=== PATIENT | female | born 1940 | race Caucasian/White ===

== ENCOUNTER 2018-05-26 21:57 | Observation (INO) | payer MEDICARE ==
[~2018-05-26] VITALS: Ht 154.9 cm; Wt 85.2 kg
[2018-05-26 22:22] LABS: BASOPHILS % (AUTO) 0.8 % (0.0-5.0); EOSINOPHILS % (AUTO) 2.1 % (0.0-8.0); HEMATOCRIT 39.6 % (36-48); LYMPHOCYTES % (AUTO) 16.5 % (21.0-51.0); MEAN CORPUSCULAR HEMOGLOBIN 27.6 pg (27.0-33.0); MEAN CORPUSCULAR HGB CONC 32.7 g/dL (32.0-36.0); MEAN CORPUSCULAR VOLUME 84.3 fL (79-99); MONOCYTES % (AUTO) 7.7 % (3.0-13.0); NEUTROPHILS % (AUTO) 72.9 % (40.0-77.0); NUCLEATED RED BLOOD CELLS 0.1 % (0.0-0.19); PLATELET COUNT (AUTO) 206 K/uL (130-400); RED CELL DISTRIBUTION WIDTH 14.1 % (11.0-15.5)
[2018-05-26 22:48] LABS: INR 0.89 (0.85-1.15); PARTIAL THROMBOPLASTIN TIME 29.1 SEC (26.3-35.5); PROTHROMBIN TIME 9.4 SEC (9.6-11.6)
[2018-05-26 22:54] LABS: B-TYPE NATRIURETIC PEPTIDE 24 pg/mL (0-100)
[2018-05-26 23:23] LABS: ALBUMIN 3.6 g/dL (3.5-5.0); BILIRUBIN,TOTAL 0.1 mg/dL (0.2-1.0); TOTAL PROTEIN, SERUM 7.7 g/dL (6.0-8.3)
[2018-05-27 01:16] LABS: APPEARANCE,URINE Clear (CLEAR); BILIRUBIN,URINE Negative (NEGATIVE); COLOR,URINE Yellow (YELLOW); GLUCOSE, URINE (UA) Negative (NEGATIVE); KETONES,URINE Negative (NEGATIVE); LEUKOCYTE ESTERASE ,URINE Trace (NEGATIVE); NITRATE,URINE Negative (NEGATIVE); OCCULT BLOOD,URINE Negative (NEGATIVE); PH,URINE 5.5 (5.0-8.0); PROTEIN,URINE Negative (NEGATIVE); UROBILINOGEN,URINE 0.2 mg/dL (0.2-1.0)
[2018-05-27 01:38] LABS: BACTERIA,URINE None Seen /HPF (None Seen); RBC,URINE None Seen /HPF (0-1); WBC,URINE None Seen /HPF (0-1)
[2018-05-27] MEDS ORDERED: LIDOCAINE HCL 2% VISCOUS 15 ML UDCUP ONE (01:44)
[2018-05-27] MEDS ORDERED: MAG HYDROX/AL HYDROX/SIMETH ES 30 ML SUSP UDCUP ONE (01:44)
[2018-05-27] MEDS ORDERED: NITROGLYCERIN 0.4 MG SL TAB SL PRN (02:30)
[2018-05-27] MEDS ORDERED: ACETAMINOPHEN 325 MG TAB PO PRN (02:30)
[2018-05-27] MEDS ORDERED: ONDANSETRON HCL 4 MG/2 ML VIAL IV PRN (02:30)
[2018-05-27] MEDS ORDERED: HYDRALAZINE HCL 20 MG/ML VIAL IM PRN (02:45)
[2018-05-27 02:55] LABS: AMPHET/METH SCREEN,URINE NEGATIVE (NEGATIVE); BARBITURATE SCREEN, URINE NEGATIVE (NEGATIVE); BENZODIAZEPINES SCREEN,URINE NEGATIVE (NEGATIVE); CANNABINOID SCREEN,URINE NEGATIVE (NEGATIVE); COCAINE SCREEN,URINE NEGATIVE (NEGATIVE); OPIATE SCREEN,URINE NEGATIVE (NEGATIVE); PHENCYCLIDINE SCREEN,URINE NEGATIVE (NEGATIVE)
[2018-05-27 04:36] LABS: EOSINOPHILS % (AUTO) 2.8 % (0.0-8.0); HEMATOCRIT 37.8 % (36-48); LYMPHOCYTES % (AUTO) 22.9 % (21.0-51.0); MEAN CORPUSCULAR HGB CONC 33.2 g/dL (32.0-36.0); MEAN CORPUSCULAR VOLUME 84.3 fL (79-99); MONOCYTES % (AUTO) 8.8 % (3.0-13.0); NEUTROPHILS % (AUTO) 64.5 % (40.0-77.0); PLATELET COUNT (AUTO) 227 K/uL (130-400); RED BLOOD CELL COUNT(AUTO) 4.48 MIL/uL (4.00-5.50); RED CELL DISTRIBUTION WIDTH 14.5 % (11.0-15.5); WHITE BLOOD COUNT (AUTO) 5.3 K/uL (4.8-10.8)
[2018-05-27 04:58] LABS: ALBUMIN 3.2 g/dL (3.5-5.0); BILIRUBIN,TOTAL 0.1 mg/dL (0.2-1.0); CREATININE 0.9 mg/dL (0.5-1.5); POTASSIUM 4.2 mmol/L (3.5-5.1); TOTAL PROTEIN, SERUM 6.4 g/dL (6.0-8.3)
[2018-05-27 05:06] LABS: CREATINE KINASE, TOTAL 152 U/L (21-232); MYOGLOBIN 63 ng/mL (10-92); TROPONIN I < 0.04 ng/mL (0.00-0.06)
[2018-05-27] MEDS ORDERED: IPRATROPIUM/ALBUTEROL SULFATE 3 ML SOLUTION IH SCH (06:00)
[2018-05-27] MEDS ORDERED: IPRATROPIUM/ALBUTEROL SULFATE 3 ML SOLUTION IH ONE (06:46)
--- NOTE | 2018-05-27 08:00 | NUR ---
feeling in neuro to feet Addendum: 05/27/18 at 1028 by FRED BAKER RN RN Amended: Links added.
--- NOTE | 2018-05-27 08:00 | NUR ---
heart burn Addendum: 05/27/18 at 1028 by FRED BAKER RN RN Amended: Links added.
[2018-05-27 08:34] VITALS: BP 134/77
[2018-05-27] MEDS ORDERED: PANTOPRAZOLE SODIUM 40 MG TABLET.DR PO SCH (09:00)
[2018-05-27] MEDS ORDERED: METOPROLOL TARTRATE 25 MG TAB PO SCH (09:00)
[2018-05-27] MEDS ORDERED: ENOXAPARIN SODIUM 30 MG/0.3 ML SQ SCH (09:00)
[2018-05-27] MEDS ORDERED: ASPIRIN 325 MG TABLET PO SCH (09:00)
[2018-05-27] MEDS ORDERED: FLUT1AER IH (10:56)
[2018-05-27] MEDS ORDERED: OXYB10TA PO (10:56)
[2018-05-27] MEDS ORDERED: ESOM40CA54 PO (10:56)
[2018-05-27] MEDS ORDERED: SIMV20TA6 PO (10:56)
[2018-05-27] MEDS ORDERED: PREG75 PO (10:56)
[2018-05-27] MEDS ORDERED: SULF1TAB41 PO (10:56)
[2018-05-27] MEDS ORDERED: METO-391 PO (10:56)
[2018-05-27] MEDS ORDERED: RANI-248 PO (10:56)
[2018-05-27] MEDS ORDERED: AMLO-127 PO (10:56)
[2018-05-27] MEDS ORDERED: ALBU90AE IH (10:56)
[2018-05-27] MEDS ORDERED: FLUT16H NASAL (10:56)
[2018-05-27] MEDS ORDERED: ASPI-1181 PO (10:56)
[2018-05-27] MEDS ORDERED: HYDR12.54 PO (11:24)
--- NOTE | 2018-05-27 12:40 | NUR ---
PATIENT GIVEN DISCHARGE INSTRUCTIONS AND VERBALIZED UNDERSTANDING, TELEMETRY AND UNIT NOTIFIED , IV D/C WITH CATHETER INTACT PRESSURE HELD ON SITE THE SITE DRESSED PATIENT .
--- NOTE | 2018-05-27 13:30 | NUR ---
PATIENT WALKED DOWN WITH DAUGHTER AND STAFF BY SIDE
== END 2018-05-27 13:29 | disposition home or self-care (01) ==
LOC: EDH 21:57 → EDHIP 05-27 02:29 → 4CH 05-27 08:14
PROVIDERS: ADMIT Hospitalist; ATTEND Hospitalist
DX: R07.89 Other chest pain (principal); I16.9 Hypertensive crisis, unspecified; J45.909 Unspecified asthma, uncomplicated; E66.9 Obesity, unspecified; E78.5 Hyperlipidemia, unspecified; I10 Essential (primary) hypertension; I25.10 Atherosclerotic heart disease of native coronary artery without angina pectoris; J98.11 Atelectasis; K21.9 Gastro-esophageal reflux disease without esophagitis; K44.9 Diaphragmatic hernia without obstruction or gangrene; Z68.35 Body mass index [BMI] 35.0-35.9, adult; Z96.651 Presence of right artificial knee joint; Z90.49 Acquired absence of other specified parts of digestive tract; Z90.710 Acquired absence of both cervix and uterus; Z82.61 Family history of arthritis; Z79.899 Other long term (current) drug therapy
CPT/HCPCS: 36415 ×2; 71045; 71275; 80053 ×2; 80061; 80305; 81001; 82550; 83874; 83880; 84484 ×3; 85025 ×2; 85378; 85610; 85730; 87040 ×2; 93005 ×2; 94640; 94664; 99284; G0378 ×11

== ENCOUNTER 2019-06-11 06:49 | Day surgery (SDC) | payer MEDICARE ==
[2019-06-09 10:21] VITALS: BP 101/66
[2019-06-11] VITALS (21 sets, daily range): BP systolic 52–142; BP diastolic 49–73
[~2019-06-11] VITALS: Ht 157.5 cm; Wt 76.7 kg
[~2019-06-11 06:49] MED LIST: ALBU90AE IH; AMLO-96 PO; ASPI-1181 PO; ESOM40CA54 PO; FLUT16H NASAL; FLUT1AER IH; HYDR12.54 PO; METO-391 PO; OXYB10TA30 PO; PREG75 PO; RANI-662 PO; SIMV-43 PO; SULF1TAB41 PO
[2019-06-11] MEDS ORDERED: LACTATED RINGERS 1000ML 1,000 ML IV ONE (07:39)
--- NOTE | 2019-06-11 07:45 | NUR ---
POTENTIAL FOR INFECTION: NO SHAVING NEEDED TO LEFT KNEE ASSESSED PER TUAN ROBB. WIPED LEFT KNEE / LEFT LEG WITH WILL: 2% CHLORHEXIDINE GLUCONATE CLOTH PATIENTS PRE-OP SKIN PREP PER TUAN ROBB.
[2019-06-11] MEDS ORDERED: CEFAZOLIN SODIUM 1 GM VIAL IVP ONE (08:00)
[2019-06-11] MEDS ORDERED: CA/D1TAB7 PO (08:50)
[2019-06-11] MEDS ORDERED: FERR-82 PO (08:50)
[2019-06-11] MEDS ORDERED: UBID100C10 PO (08:50)
[2019-06-11] MEDS ORDERED: MAGN400C PO (08:50)
[2019-06-11] MEDS ORDERED: MONT10TA26 PO (08:50)
[2019-06-11] MEDS ORDERED: CELE100 PO (08:50)
[2019-06-11] MEDS ORDERED: SULF1TAB89 PO (08:50)
[2019-06-11] MEDS ORDERED: GLUC-148 PO (08:50)
[2019-06-11] MEDS ORDERED: RALO60TA PO (08:50)
[2019-06-11] MEDS ORDERED: MULT-959 PO (08:50)
[2019-06-11] MEDS ORDERED: AMLO1CAP2 PO (08:50)
[2019-06-11] MEDS ORDERED: CETI10CA5 PO (08:52)
--- NOTE | 2019-06-11 08:52 | NUR ---
POTENTIAL FOR INFECTION: SHAVED LEFT LEG / LEFT KNEE PER TUAN ROBB, FOLLOWED BY WIPING WITH WILL: 2% CHLORHEXIDINE GLUCONATE CLOTH PATIENTS PRE-OP SKIN PREP.
[2019-06-11] MEDS ORDERED: SCOPOLAMINE HYDROBROMIDE 1 EACH ADH..PATCH TD ONE (08:55)
[2019-06-11] MEDS ORDERED: SUCCINYLCHOLINE 200MG/10ML SYR ONE (09:03)
[2019-06-11] MEDS ORDERED: GLYCOPYRROLATE 1 MG/5 ML SYRINGE ONE (09:03)
[2019-06-11] MEDS ORDERED: LIDOCAINE PF 2% 5ML ABBOJECT ONE (09:03)
[2019-06-11] MEDS ORDERED: PROPOFOL 10 MG/ML 20ML VIAL IV ONE (09:03)
[2019-06-11] MEDS ORDERED: ONDANSETRON HCL 4 MG/2 ML VIAL ONE (09:03)
[2019-06-11] MEDS ORDERED: NEOSTIGMINE 5MG/5ML SYR IV ONE (09:03)
[2019-06-11] MEDS ORDERED: DEXAMETHASONE SOD PHOSPHATE 10MG/ML 1ML VIAL ONE (09:03)
[2019-06-11] MEDS ORDERED: ROCURONIUM 10MG/1ML SYR 10 MG/ML ML ONE (09:04)
[2019-06-11] MEDS ORDERED: FENTANYL CITRATE PF 50 MCG/1 ML 2ML VIAL ONE (09:04)
[2019-06-11] MEDS ORDERED: MIDAZOLAM HCL 1 MG/ML 2ML VIAL ONE ×2 (09:04→11:28)
[2019-06-11] MEDS ORDERED: SUB TO ALBUTEROL 2.5MG/3ML NEBULES PER P&T IH ONE (09:04)
[2019-06-11] MEDS ORDERED: ACET1TAB12 PO (10:25)
[2019-06-11] MEDS ORDERED: MORPHINE SULFATE 4 MG/1ML SYG ONE ×2 (10:30→11:05)
--- NOTE | 2019-06-11 11:00 | NUR ---
PT COMING OF CHEST PRESSURE. DR. MONK TO SEE PT. ORDERS WERE GIVEN TO EKG, MORPHINE, BICITRA, AND PEPCID. ORDERS CARRIED OUT. Addendum: 06/11/19 at 1136 by WES MARCELO RN RN Amended: Links added.
[2019-06-11] MEDS ORDERED: FAMOTIDINE/PF 20 MG/2 ML VIAL IV ONE (11:05)
[2019-06-11] MEDS ORDERED: CITRIC ACID/SODIUM CITRATE 30 ML UDCUP ONE (11:06)
--- NOTE | 2019-06-11 11:13 | NUR ---
PEPCID 20MG IVP GIVEN.
--- NOTE | 2019-06-11 11:30 | NUR ---
DR. MONK TO SEE PT. AND READ EKG. PT STATES PAIN HAS LESSENED, BUT STILL THERE. PT APPEARED ANXIOUS. DR. MONK ORDERED VERSED 1MG, IVP. ORDERS CARRIED OUT. Addendum: 06/11/19 at 1138 by WES MARCELO RN RN Amended: Links added.
--- NOTE | 2019-06-11 12:00 | NUR ---
DR. MONK NOTIFIED PT IS FEELING COMFORTABLE, DENIES CHEST PAIN. DR. MONK PROVIDED ORDERS TO TRANSFER PT TO DAY PT. PT WAS TOLD TO REPORT TO EMERGENCY RM IF SHE GETS CHEST PRESSURE/DISCOMFORT AT HOME. Addendum: 06/11/19 at 1209 by WES MARCELO RN RN Amended: Links added.
--- NOTE | 2019-06-11 13:07 | NUR ---
PT LEFT VIA WHEELCHAIR IN PVT CAR WITH D/C INSTRUCTIONS GIVEN TO FAMILY. V/S STABLE NO COMPLICATIONS UPON D/C DRESSING DRY AND INTACT
== END 2019-06-11 13:07 | disposition home or self-care (01) ==
LOC: DAH 06:49
PROVIDERS: ATTEND Orthopaedic Surgery
DX: M23.222 Derangement of posterior horn of medial meniscus due to old tear or injury, left knee (principal); M17.12 Unilateral primary osteoarthritis, left knee; M25.562 Pain in left knee; G89.29 Other chronic pain; M67.52 Plica syndrome, left knee; M94.262 Chondromalacia, left knee; I25.10 Atherosclerotic heart disease of native coronary artery without angina pectoris; J44.9 Chronic obstructive pulmonary disease, unspecified; I10 Essential (primary) hypertension; Z96.651 Presence of right artificial knee joint; Z90.49 Acquired absence of other specified parts of digestive tract; Z90.710 Acquired absence of both cervix and uterus; Z98.890 Other specified postprocedural states; Z79.899 Other long term (current) drug therapy; Z87.891 Personal history of nicotine dependence; Z88.8 Allergy status to other drugs, medicaments and biological substances; Z79.82 Long term (current) use of aspirin; Z82.49 Family history of ischemic heart disease and other diseases of the circulatory system; Z82.3 Family history of stroke
CPT/HCPCS: 29881; 93005; A4213; A4215; A4221; A4222; A4223; A4606; A4649 ×2; A4663; A4930; A5120; A6223; J0330; J0690; J1100; J2001; J2250 ×2; J2270 ×2; J2405; J2704; J2710; J3010; J3490 ×2; J7030; J7120

== ENCOUNTER 2020-08-11 17:12 | Emergency (ER) | payer MEDICARE ==
[~2020-08-11 17:12] MED LIST changes: +ACET1TAB12 PO; -ALBU90AE IH; -AMLO-96 PO; +AMLO1CAP2 PO; -ASPI-1181 PO; +ASPI-1443 PO; +CA/D1TAB7 PO; +CELE100 PO; +CETI10CA5 PO; +FERR-82 PO; +GLUC-148 PO; -HYDR12.54 PO; +MAGN400C PO; +MONT10TA32 PO; +MULT-959 PO; +RALO60TA PO; -RANI-662 PO; -SULF1TAB41 PO; +SULF1TAB89 PO; +UBID100C10 PO
[2020-08-11 17:41] LABS: CREATININE 1.1 mg/dL (0.5-1.5); POTASSIUM 4.6 mmol/L (3.5-5.1)
[2020-08-11 17:46] LABS: ALBUMIN 2.5 g/dL (3.5-5.0); BILIRUBIN,TOTAL 0.1 mg/dL (0.2-1.0); TOTAL PROTEIN, SERUM 6.2 g/dL (6.0-8.3)
[2020-08-11 17:56] LABS: BASOPHILS % (AUTO) 0.6 % (0.0-5.0); EOSINOPHILS % (AUTO) 2.8 % (0.0-8.0); HEMATOCRIT 35.6 % (36-48); LYMPHOCYTES % (AUTO) 13.3 % (21.0-51.0); MEAN CORPUSCULAR HEMOGLOBIN 28.3 pg (27.0-33.0); MEAN CORPUSCULAR VOLUME 83.4 fL (79-99); MONOCYTES % (AUTO) 8.3 % (3.0-13.0); NEUTROPHILS % (AUTO) 74.6 % (40.0-77.0); PLATELET COUNT (AUTO) 55 K/uL (130-400); RED BLOOD CELL COUNT(AUTO) 4.27 MIL/uL (4.00-5.50); RED CELL DISTRIBUTION WIDTH 13.1 % (11.0-15.5); WHITE BLOOD COUNT (AUTO) 5.4 K/uL (4.8-10.8)
[2020-08-11 18:26] LABS: B-TYPE NATRIURETIC PEPTIDE 231 pg/mL (0-100)
[2020-08-11] MEDS ORDERED: FUROSEMIDE 10 MG/ML 2ML VIAL ONE (19:49)
[2020-08-11 20:43] LABS: BILIRUBIN,URINE Negative (NEGATIVE); COLOR,URINE Yellow (YELLOW); GLUCOSE, URINE (UA) Negative (NEGATIVE); KETONES,URINE Negative (NEGATIVE); LEUKOCYTE ESTERASE ,URINE Negative (NEGATIVE); NITRATE,URINE Negative (NEGATIVE); OCCULT BLOOD,URINE Small (NEGATIVE); PROTEIN,URINE >=1000 mg/dL (NEGATIVE); UROBILINOGEN,URINE 0.2 mg/dL (0.2-1.0)
[2020-08-11 20:44] LABS: APPEARANCE,URINE CLEAR (CLEAR)
[2020-08-11 21:32] LABS: BACTERIA,URINE Few /HPF (None Seen); RBC,URINE None Seen /HPF (0-1); SQUAMOUS EPITHELIAL CELL,UR 0-2 /HPF (0-2); WBC,URINE 0-1 /HPF (0-1)
== END 2020-08-11 22:14 | disposition home or self-care (01) ==
LOC: EDH 17:12
DX: E88.09 Other disorders of plasma-protein metabolism, not elsewhere classified (principal); R80.9 Proteinuria, unspecified; I10 Essential (primary) hypertension; J45.909 Unspecified asthma, uncomplicated; I25.10 Atherosclerotic heart disease of native coronary artery without angina pectoris; E78.5 Hyperlipidemia, unspecified; Z88.8 Allergy status to other drugs, medicaments and biological substances
CPT/HCPCS: 36415; 71045; 80053; 81001; 82550; 83880; 84443; 84484; 85025; 93005; 99285; J1940

== ENCOUNTER 2020-08-15 19:49 | Emergency (ER) | payer MEDICARE ==
[2020-08-15 20:44] LABS: BASOPHILS % (AUTO) 1.1 % (0.0-5.0); EOSINOPHILS % (AUTO) 5.8 % (0.0-8.0); HEMATOCRIT 37.1 % (36-48); LYMPHOCYTES % (AUTO) 12.9 % (21.0-51.0); MEAN CORPUSCULAR HEMOGLOBIN 28.4 pg (27.0-33.0); MEAN CORPUSCULAR HGB CONC 33.4 g/dL (32.0-36.0); MEAN CORPUSCULAR VOLUME 85.1 fL (79-99); MONOCYTES % (AUTO) 8.6 % (3.0-13.0); NEUTROPHILS % (AUTO) 71.2 % (40.0-77.0); PLATELET COUNT (AUTO) 16 K/uL (130-400); RED BLOOD CELL COUNT(AUTO) 4.36 MIL/uL (4.00-5.50); RED CELL DISTRIBUTION WIDTH 13.2 % (11.0-15.5); WHITE BLOOD COUNT (AUTO) 5.6 K/uL (4.8-10.8)
[2020-08-15 20:56] LABS: INR 0.95 (0.85-1.15); PARTIAL THROMBOPLASTIN TIME 24.7 SEC (26.3-35.5); PROTHROMBIN TIME 9.9 SEC (9.6-11.6)
[2020-08-15 21:01] LABS: CREATININE 1.4 mg/dL (0.5-1.5); POTASSIUM 4.7 mmol/L (3.5-5.1)
[2020-08-15 21:10] LABS: ALBUMIN 2.1 g/dL (3.5-5.0); BILIRUBIN,TOTAL 0.2 mg/dL (0.2-1.0); TOTAL PROTEIN, SERUM 6.4 g/dL (6.0-8.3)
[2020-08-15 22:11] LABS: PLATELET COUNT (AUTO) 138 K/uL (130-400)
[2020-08-15 22:16] LABS: PLATELET MORPHOLOGY PLT CLUMPS PRESENT
[2020-08-15 22:24] LABS: PLATELET MORPHOLOGY PLT CLUMPS PRESENT
[2020-08-15 22:29] LABS: APPEARANCE,URINE Clear (CLEAR); BILIRUBIN,URINE Negative (NEGATIVE); COLOR,URINE Yellow (YELLOW); GLUCOSE, URINE (UA) Negative (NEGATIVE); KETONES,URINE Negative (NEGATIVE); LEUKOCYTE ESTERASE ,URINE Negative (NEGATIVE); NITRATE,URINE Negative (NEGATIVE); OCCULT BLOOD,URINE Moderate (NEGATIVE); PH,URINE 5.5 (5.0-8.0); PROTEIN,URINE >=1000 mg/dL (NEGATIVE); UROBILINOGEN,URINE 0.2 mg/dL (0.2-1.0)
[2020-08-15 22:36] LABS: BACTERIA,URINE None Seen /HPF (None Seen); HYALINE CASTS, URINE 0-1 /LPF (0-1 /LPF); SQUAMOUS EPITHELIAL CELL,UR Rare /HPF (0-2); WBC,URINE 0-1 /HPF (0-1)
[2020-08-15] MEDS ORDERED: FUROSEMIDE 10 MG/ML 2ML VIAL ONE (22:40)
== END 2020-08-16 00:28 | disposition home or self-care (01) ==
LOC: EDH 19:49
DX: R80.9 Proteinuria, unspecified (principal); I10 Essential (primary) hypertension; R60.9 Edema, unspecified; Z20.822 Contact with and (suspected) exposure to COVID-19; J45.909 Unspecified asthma, uncomplicated; I25.10 Atherosclerotic heart disease of native coronary artery without angina pectoris; E78.5 Hyperlipidemia, unspecified; Z88.8 Allergy status to other drugs, medicaments and biological substances; Z88.5 Allergy status to narcotic agent; Z79.899 Other long term (current) drug therapy
CPT/HCPCS: 36415; 71045; 80053; 81001; 83605; 83880; 84484; 85025; 85610; 85730; 87040 ×2; 87426; 93005; 96374; 99285; J1940; U0003; 85049

== ENCOUNTER → 2020-08-25 | Outpatient (CLI) | payer MEDICARE ==
[~2020-08-25] MED LIST changes: +IOHEXOL-350 75 ML VIAL IV ONE
== END | disposition home or self-care (01) ==
LOC: RAH 07:30
PROVIDERS: ATTEND Nurse Practitioner Family
DX: R79.89 Other specified abnormal findings of blood chemistry (principal); J90 Pleural effusion, not elsewhere classified; K44.9 Diaphragmatic hernia without obstruction or gangrene; I51.7 Cardiomegaly; M25.40 Effusion, unspecified joint
CPT/HCPCS: 71275; Q9967

== ENCOUNTER → 2020-10-01 | Outpatient (CLI) | payer MEDICARE ==
[~2020-10-01] MED LIST changes: -IOHEXOL-350 75 ML VIAL IV ONE
== END | disposition home or self-care (01) ==
LOC: SHCH 15:18
PROVIDERS: ATTEND Internal Medicine Cardiovascular Disease
DX: I50.1 Left ventricular failure, unspecified (principal); R60.9 Edema, unspecified
CPT/HCPCS: 93306; 93356

== ENCOUNTER → 2021-02-21 | Outpatient (CLI) | payer MEDICARE ==
[~2021-02-21] VITALS: Ht 154.9 cm; Wt 76.7 kg
[~2021-02-21] MED LIST changes: +ACET-2027 PO; +AEC81 PO; +AMLO-142 PO; +AMLO-143 PO; +AMLO-513 PO; +CELEBREX PO; +FOLI1TAB85 PO; +FURO40TA5 PO; +HYDR-4060 PO; +LEVO25CA4 PO; +MONT-39 PO; -MONT10TA32 PO; +POTA10CA44 PO; +REGADENOSON 0.4 MG/5 ML PF SYG IVP SCH; +UBID200C18 PO; +VITAMIN B12 PO
== END | disposition home or self-care (01) ==
LOC: SHCH 09:14
PROVIDERS: ATTEND Internal Medicine Cardiovascular Disease
DX: Z01.810 Encounter for preprocedural cardiovascular examination (principal); G89.29 Other chronic pain; M25.561 Pain in right knee; R94.39 Abnormal result of other cardiovascular function study
CPT/HCPCS: 78452; 93017; 96374; A9500 ×2; J2785

== ENCOUNTER 2021-03-09 07:07 | Day surgery (SDC) | payer MEDICARE ==
[2021-03-07 15:44] LABS: BASOPHILS % (AUTO) 0.7 % (0.0-5.0); EOSINOPHILS % (AUTO) 2.4 % (0.0-8.0); HEMATOCRIT 40.7 % (36-48); LYMPHOCYTES % (AUTO) 12.6 % (21.0-51.0); MEAN CORPUSCULAR HEMOGLOBIN 27.6 pg (27.0-33.0); MEAN CORPUSCULAR HGB CONC 31.9 g/dL (32.0-36.0); MEAN CORPUSCULAR VOLUME 86.4 fL (79-99); MONOCYTES % (AUTO) 7.6 % (3.0-13.0); NEUTROPHILS % (AUTO) 76.4 % (40.0-77.0); PLATELET COUNT (AUTO) 41 K/uL (130-400); RED BLOOD CELL COUNT(AUTO) 4.71 MIL/uL (4.00-5.50); RED CELL DISTRIBUTION WIDTH 13.5 % (11.0-15.5); WHITE BLOOD COUNT (AUTO) 5.8 K/uL (4.8-10.8)
[2021-03-07 15:50] LABS: CREATININE 1.2 mg/dL (0.5-1.5); POTASSIUM 4.5 mmol/L (3.5-5.1)
[2021-03-07 15:53] LABS: INR 0.96 (0.85-1.15); PROTHROMBIN TIME 10.5 SEC (9.6-11.6)
[2021-03-07 15:54] LABS: PARTIAL THROMBOPLASTIN TIME 27.8 SEC (26.3-35.5)
[2021-03-07 16:00] LABS: APPEARANCE,URINE Clear (CLEAR); BILIRUBIN,URINE Negative (NEGATIVE); COLOR,URINE Dark Yellow (YELLOW); GLUCOSE, URINE (UA) Negative (NEGATIVE); KETONES,URINE Trace mg/dL (NEGATIVE); LEUKOCYTE ESTERASE ,URINE Negative (NEGATIVE); NITRATE,URINE Negative (NEGATIVE); OCCULT BLOOD,URINE Negative (NEGATIVE); PH,URINE 5.5 (5.0-8.0); PROTEIN,URINE Trace mg/dL (NEGATIVE); UROBILINOGEN,URINE 0.2 mg/dL (0.2-1.0)
[2021-03-07 16:18] LABS: BACTERIA,URINE Rare /HPF (None Seen); RBC,URINE 0-1 /HPF (0-1); SQUAMOUS EPITHELIAL CELL,UR Few /HPF (0-2); WBC,URINE 0-1 /HPF (0-1)
[2021-03-08 13:17] LABS: HEMATOCRIT 37.9 % (36-48); MEAN CORPUSCULAR HEMOGLOBIN 27.7 pg (27.0-33.0); MEAN CORPUSCULAR HGB CONC 32.7 g/dL (32.0-36.0); MEAN CORPUSCULAR VOLUME 84.6 fL (79-99); RED BLOOD CELL COUNT(AUTO) 4.48 MIL/uL (4.00-5.50); RED CELL DISTRIBUTION WIDTH 13.4 % (11.0-15.5); WHITE BLOOD COUNT (AUTO) 5.4 K/uL (4.8-10.8)
[2021-03-08 13:24] LABS: PLATELET COUNT (AUTO) 256 K/uL (130-400)
[2021-03-08 13:52] LABS: EOSINOPHILS % (MANUAL) 2 % (1-6); LYMPHOCYTES % (MANUAL) 13 % (22-44); MAN.DIFF COMMENT-IMPRESSION MANUAL DIFFERENTIAL; MONOCYTES % (MANUAL) 7 % (2-9); SEGMENTED NEUTROPHILS % 78 % (40-70)
[2021-03-08 13:53] LABS: PLATELET MORPHOLOGY COMMENT ADEQUATE
[2021-03-08 14:13] VITALS: BP 127/67
[2021-03-09] VITALS (11 sets, daily range): BP systolic 107–157; BP diastolic 48–97
[~2021-03-09] VITALS: Ht 157.5 cm; Wt 81.6 kg
[~2021-03-09 07:07] MED LIST changes: -ACET-2027 PO; -AEC81 PO; -AMLO-142 PO; -AMLO-143 PO; -AMLO-513 PO; -CELEBREX PO; -FOLI1TAB85 PO; -FURO40TA5 PO; -HYDR-4060 PO; -LEVO25CA4 PO; -POTA10CA44 PO; -REGADENOSON 0.4 MG/5 ML PF SYG IVP SCH; -UBID200C18 PO; -VITAMIN B12 PO
[2021-03-09] MEDS ORDERED: 0.9%NACL 1000ML 1,000 ML IV ONE (07:42)
[2021-03-09] MEDS ORDERED: FOLI1TAB85 PO (09:30)
[2021-03-09] MEDS ORDERED: POTA10CA44 PO (09:30)
[2021-03-09] MEDS ORDERED: ACET-2027 PO (09:30)
[2021-03-09] MEDS ORDERED: FURO40TA5 PO (09:30)
[2021-03-09] MEDS ORDERED: LEVO25CA4 PO (09:30)
[2021-03-09] MEDS ORDERED: UBID200C18 PO (09:31)
[2021-03-09] MEDS ORDERED: NITROGLYCERIN 50MG VIAL IV ONE (09:36)
[2021-03-09] MEDS ORDERED: IOHEXOL-350 50ML VIAL IV ONE (09:36)
[2021-03-09] MEDS ORDERED: IOHEXOL 350 MG/ML 100ML INFUS..BTL IV ONE ×2 (09:36→10:13)
[2021-03-09] MEDS ORDERED: LIDOCAINE HCL 400MG/20ML VIAL ONE (09:37)
[2021-03-09] MEDS ORDERED: AEC81 PO (10:07)
[2021-03-09] MEDS ORDERED: FENTANYL CITRATE PF 50 MCG/1 ML 2ML VIAL ONE (10:13)
[2021-03-09] MEDS ORDERED: MIDAZOLAM HCL 1 MG/ML 2ML VIAL ONE (10:13)
[2021-03-09] MEDS ORDERED: 0.9%NACL 1000ML 1,000 ML IV SCH (11:30)
[2021-04-28] MEDS ORDERED: AMLO-143 PO (11:57)
[2021-04-28] MEDS ORDERED: AMLO-142 PO (11:57)
[2021-04-28] MEDS ORDERED: VITAMIN B12 PO (11:58)
[2021-04-28] MEDS ORDERED: AMLO-513 PO (12:35)
[2021-05-05] MEDS ORDERED: HYDR-4060 PO (14:17)
== END 2021-03-09 17:00 | disposition home or self-care (01) ==
LOC: DAH 07:07
PROVIDERS: ATTEND Internal Medicine Cardiovascular Disease
DX: I25.10 Atherosclerotic heart disease of native coronary artery without angina pectoris (principal); J44.9 Chronic obstructive pulmonary disease, unspecified; I11.0 Hypertensive heart disease with heart failure; I50.32 Chronic diastolic (congestive) heart failure; J45.909 Unspecified asthma, uncomplicated; K21.9 Gastro-esophageal reflux disease without esophagitis; E78.5 Hyperlipidemia, unspecified; M19.90 Unspecified osteoarthritis, unspecified site; Z79.82 Long term (current) use of aspirin; Z79.899 Other long term (current) drug therapy; Z98.890 Other specified postprocedural states; Z95.5 Presence of coronary angioplasty implant and graft; Z90.49 Acquired absence of other specified parts of digestive tract; Z90.710 Acquired absence of both cervix and uterus; Z79.01 Long term (current) use of anticoagulants; Z82.49 Family history of ischemic heart disease and other diseases of the circulatory system
CPT/HCPCS: 36415 ×2; 71045; 80048; 81001; 85025 ×2; 85610; 85730; 93005; 93458; A4215; A4221; A4222; A4223 ×2; A4663; C1760; C1894 ×2; J1644; J2250; J3010; J3490 ×2; J7030; Q9965; Q9967 ×2; 99156; 99157

== ENCOUNTER 2021-05-02 07:49 | Inpatient (IN) | payer MEDICARE ==
[2021-04-28 10:02] LABS: BASOPHILS % (AUTO) 0.9 % (0.0-5.0); EOSINOPHILS % (AUTO) 3.6 % (0.0-8.0); HEMATOCRIT 37.7 % (36-48); LYMPHOCYTES % (AUTO) 13.7 % (21.0-51.0); MEAN CORPUSCULAR HGB CONC 32.6 g/dL (32.0-36.0); MEAN CORPUSCULAR VOLUME 85.9 fL (79-99); MONOCYTES % (AUTO) 10.7 % (3.0-13.0); NEUTROPHILS % (AUTO) 70.9 % (40.0-77.0); RED BLOOD CELL COUNT(AUTO) 4.39 MIL/uL (4.00-5.50); RED CELL DISTRIBUTION WIDTH 13.9 % (11.0-15.5); WHITE BLOOD COUNT (AUTO) 4.4 K/uL (4.8-10.8)
[2021-04-28 10:13] LABS: PLATELET COUNT (AUTO) 165 K/uL (130-400)
[2021-04-28 11:43] VITALS: BP 155/74
[2021-05-02] VITALS (27 sets, daily range): BP systolic 118–155; BP diastolic 54–97
[~2021-05-02] VITALS: Ht 157.5 cm; Wt 82.1 kg
[2021-05-02] MEDS: CEFAZOLIN SODIUM 2 GM VIAL IV SCH ×2 (05:00→11:12)
[~2021-05-02 07:49] MED LIST changes: +ACET-2027 PO; -ACET1TAB12 PO; +AEC81 PO; +AMLO-513 PO; -AMLO1CAP2 PO; -ASPI-1443 PO; -CELE100 PO; -CETI10CA5 PO; +FOLI1TAB85 PO; +FURO40TA5 PO; +LEVO25CA4 PO; +POTA10CA44 PO; -UBID100C10 PO; +UBID200C18 PO; +VITAMIN B12 PO
[2021-05-02] MEDS ORDERED: LACTATED RINGERS 1000ML 1,000 ML IV ONE (08:48)
[2021-05-02] MEDS ORDERED: CEFAZOLIN SODIUM 1 GM VIAL ONE ×2 (08:48→10:24)
[2021-05-02] MEDS ORDERED: CELEBREX PO (09:37)
[2021-05-02] MEDS ORDERED: LIDOCAINE PF 100MG/5ML (2%) SYRINGE 5ML ONE (09:42)
[2021-05-02] MEDS ORDERED: SUCCINYLCHOLINE CHLORIDE 20 MG/ML 10 ML VIAL ONE (09:42)
[2021-05-02] MEDS ORDERED: GLYCOPYRROLATE 1 MG/5 ML SYRINGE ONE (09:43)
[2021-05-02] MEDS ORDERED: NEOSTIGMINE 5MG/5ML SYR IV ONE (09:43)
[2021-05-02] MEDS ORDERED: PROPOFOL 10 MG/ML 20ML VIAL IV ONE (09:43)
[2021-05-02] MEDS ORDERED: MIDAZOLAM HCL 1 MG/ML 2ML VIAL ONE (09:43)
[2021-05-02] MEDS ORDERED: ROCURONIUM 10MG/1ML SYR 10 MG/ML ML ONE (09:44)
[2021-05-02] MEDS ORDERED: ROPIVACAINE 0.5% 5MG/ML 30ML IJ ONE ×2 (10:19→10:21)
[2021-05-02] MEDS ORDERED: TRANEXAMIC ACID 1000MG/10ML ONE ×2 (10:30→13:29)
[2021-05-02] MEDS ORDERED: FENTANYL CITRATE PF 50 MCG/1 ML 2ML VIAL ONE ×2 (11:15→13:14)
[2021-05-02] MEDS ORDERED: EPHEDRINE SULFATE 50 MG/ML AMPULE ONE (11:15)
[2021-05-02] MEDS ORDERED: POTASSIUM CHLORIDE 20MEQ/100ML 100 ML IV PRN (13:00)
[2021-05-02] MEDS ORDERED: TEMAZEPAM 15 MG CAPSULE PO PRN (13:00)
[2021-05-02] MEDS ORDERED: LIDOCAINE HCL-MPF 1% 2ML VIAL IV PRN (13:00)
[2021-05-02] MEDS ORDERED: 0.9%NACL 1000ML 1,000 ML IV SCH (13:00)
[2021-05-02] MEDS ORDERED: TRAMADOL HCL 50 MG TABLET PO PRN (13:00)
[2021-05-02] MEDS ORDERED: KCL 20 MEQ ERTAB PO PRN (13:00)
[2021-05-02] MEDS ORDERED: KETOROLAC 15MG/ML VIAL (15MG/ML) IV PRN (13:00)
[2021-05-02] MEDS ORDERED: FERROUS FUMARATE 324 MG TABLET PO PRN (13:00)
[2021-05-02] MEDS ORDERED: CALCIUM CARB 500MG PO PRN (13:00)
[2021-05-02] MEDS ORDERED: POTASSIUM CHLORIDE 10% ELIXIR 20 MEQ/15 ML UDCUP PO PRN (13:00)
[2021-05-02] MEDS ORDERED: OXYCODONE HCL 5 MG TAB PO PRN (13:00)
[2021-05-02] MEDS ORDERED: ONDANSETRON 4MG INJ IVP PRN (13:00)
[2021-05-02] MEDS: ACETAMINOPHEN 500 MG TABLET PO SCH ×2 (13:00→20:42)
[2021-05-02] MEDS ORDERED: IPRATROPIUM/ALBUTEROL SULFATE 3 ML SOLUTION IH ONE (13:31)
[2021-05-02] MEDS ORDERED: MORPHINE 2 MG SYG ONE ×2 (13:35→13:59)
[2021-05-02] MEDS: OXYCODONE HCL 5 MG TAB PO PRN ×2 (14:46→23:28)
[2021-05-02] MEDS ORDERED: FUROSEMIDE 40 MG TABLET PO SCH (16:00)
[2021-05-02] MEDS ORDERED: POTASSIUM CHLORIDE 10MEQ SR TAB PO SCH (16:00)
[2021-05-02] MEDS: CEFAZOLIN SODIUM 1 GM VIAL IVP SCH (17:54)
[2021-05-02] MEDS: ASPIRIN 81 MG EC TAB PO SCH (20:41)
[2021-05-02] MEDS: CELECOXIB 200 MG CAP PO SCH (20:41)
[2021-05-02] MEDS: SULFAMETHOX-TMP DS 800/160 TAB PO SCH (20:41)
[2021-05-02] MEDS: PREGABALIN 75 MG CAPSULE PO SCH (20:41)
[2021-05-02] MEDS: AMLODIPINE BES PO SCH (20:42)
[2021-05-02] MEDS: OLMESARTAN MED PO SCH (20:42)
[2021-05-03 00:32] VITALS: BP 139/74
[2021-05-03] MEDS: CEFAZOLIN SODIUM 1 GM VIAL IVP SCH (02:34)
[2021-05-03 04:15] VITALS: BP 142/78
[2021-05-03] MEDS: ACETAMINOPHEN 500 MG TABLET PO SCH ×3 (04:49→21:00)
[2021-05-03] MEDS: OXYCODONE HCL 5 MG TAB PO PRN ×2 (04:53→08:48)
[2021-05-03 05:02] LABS: HEMATOCRIT 37.5 % (36-48); MEAN CORPUSCULAR HEMOGLOBIN 27.4 pg (27.0-33.0); MEAN CORPUSCULAR HGB CONC 31.5 g/dL (32.0-36.0); RED BLOOD CELL COUNT(AUTO) 4.31 MIL/uL (4.00-5.50); RED CELL DISTRIBUTION WIDTH 13.5 % (11.0-15.5); WHITE BLOOD COUNT (AUTO) 7.1 K/uL (4.8-10.8)
[2021-05-03] MEDS ORDERED: LEVOTHYROXINE 25 MCG TABLET ONE (05:23)
[2021-05-03 05:28] LABS: CREATININE 0.8 mg/dL (0.5-1.5); POTASSIUM 4.3 mmol/L (3.5-5.1)
[2021-05-03] MEDS: LEVOTHYROXINE 25 MCG TABLET PO SCH (05:51)
[2021-05-03 07:30] VITALS: BP 146/70
[2021-05-03] MEDS: SIMVASTATIN 20 MG TABLET PO SCH (08:48)
[2021-05-03] MEDS: CYANOCOBALAMIN (VITAMIN B-12) 1,000 MCG TABLET PO SCH (08:48)
[2021-05-03] MEDS: METOPROLOL SUCCINATE 50 MG TAB.SR.24H PO SCH (08:48)
[2021-05-03] MEDS: CA 600MG+VIT D 400 UNIT TAB 1 TAB TABLET PO SCH (08:48)
[2021-05-03] MEDS: MONTELUKAST SODIUM 10 MG TAB PO SCH (08:49)
[2021-05-03] MEDS: ASPIRIN 81 MG EC TAB PO SCH ×2 (08:49→21:00)
[2021-05-03] MEDS: Vitamin B Complex/Vit C/Folic Acid PO SCH (08:50)
[2021-05-03] MEDS: POLYETHYLENE GLYCOL 3350 17 GM POWD.PACK PO SCH (08:50)
[2021-05-03] MEDS: MAGNESIUM OXIDE 400 MG TABLET PO SCH (08:50)
[2021-05-03] MEDS: CELECOXIB 200 MG CAP PO SCH ×2 (08:50→20:59)
[2021-05-03] MEDS: FLUTICASONE PROPIONATE 50MCG/SPRAY 16 GM BOTTLE NS SCH (08:50)
[2021-05-03] MEDS: PANTOPRAZOLE 40 MG TAB DR PO SCH (08:50)
[2021-05-03] MEDS: OXYBUTYNIN 5 MG TAB.SR.24H PO SCH (08:50)
[2021-05-03] MEDS: FLUTICASONE/VILANTEROL 1 EACH AER.POW.BA IH SCH ×2 (08:51→18:04)
[2021-05-03] MEDS ORDERED: FERROUS SULFATE 325 MG TABLET.DR PO SCH (09:00)
[2021-05-03 11:00] VITALS: BP 133/66
[2021-05-03] MEDS ORDERED: HYDROMORPHONE PCA 10 MG/50 ML 50 ML IV PRN (13:30)
[2021-05-03] MEDS: HYDROMORPHONE 1 MG INJ IVP SCH (13:36)
[2021-05-03 16:00] VITALS: BP 142/58
[2021-05-03] MEDS: RALOXIFENE HCL 60 MG TABLET PO SCH (17:23)
[2021-05-03 20:31] VITALS: BP 140/59
[2021-05-03] MEDS: SULFAMETHOX-TMP DS 800/160 TAB PO SCH (20:59)
[2021-05-03] MEDS: PREGABALIN 75 MG CAPSULE PO SCH (21:03)
[2021-05-03] MEDS: OLMESARTAN MED PO SCH (21:17)
[2021-05-03] MEDS: AMLODIPINE BES PO SCH (21:17)
[2021-05-04] VITALS: BP 144/57
[2021-05-04 05:07] VITALS: BP 129/52
[2021-05-04] MEDS: LEVOTHYROXINE 25 MCG TABLET PO SCH (06:12)
[2021-05-04] MEDS: ACETAMINOPHEN 500 MG TABLET PO SCH ×2 (06:13→13:43)
[2021-05-04] MEDS ORDERED: FUROSEMIDE 40 MG TABLET PO SCH (07:00)
[2021-05-04] MEDS ORDERED: POTASSIUM CHLORIDE 10MEQ SR TAB PO SCH (07:00)
[2021-05-04 07:50] VITALS: BP 160/52
[2021-05-04] MEDS: MAGNESIUM OXIDE 400 MG TABLET PO SCH (08:08)
[2021-05-04] MEDS: SIMVASTATIN 20 MG TABLET PO SCH (08:08)
[2021-05-04] MEDS: PANTOPRAZOLE 40 MG TAB DR PO SCH (08:09)
[2021-05-04] MEDS: Vitamin B Complex/Vit C/Folic Acid PO SCH (08:09)
[2021-05-04] MEDS: OXYBUTYNIN 5 MG TAB.SR.24H PO SCH (08:09)
[2021-05-04] MEDS: ASPIRIN 81 MG EC TAB PO SCH (08:09)
[2021-05-04] MEDS: CA 600MG+VIT D 400 UNIT TAB 1 TAB TABLET PO SCH (08:09)
[2021-05-04] MEDS: METOPROLOL SUCCINATE 50 MG TAB.SR.24H PO SCH (08:09)
[2021-05-04] MEDS: CELECOXIB 200 MG CAP PO SCH (08:09)
[2021-05-04] MEDS: POLYETHYLENE GLYCOL 3350 17 GM POWD.PACK PO SCH (08:10)
[2021-05-04] MEDS: MONTELUKAST SODIUM 10 MG TAB PO SCH (08:10)
[2021-05-04] MEDS: CYANOCOBALAMIN (VITAMIN B-12) 1,000 MCG TABLET PO SCH (08:10)
[2021-05-04] MEDS: OXYCODONE HCL 5 MG TAB PO PRN ×2 (08:11→13:43)
[2021-05-04] MEDS: FLUTICASONE/VILANTEROL 1 EACH AER.POW.BA IH SCH (08:20)
[2021-05-04] MEDS: FLUTICASONE PROPIONATE 50MCG/SPRAY 16 GM BOTTLE NS SCH (08:20)
[2021-05-04 11:14] VITALS: BP 125/59
[2021-05-04] MEDS ORDERED: PHARMACY COMMUNICATION MISC SCH (13:00)
[2021-05-04] MEDS: HYDROMORPHONE 1 MG INJ IVP SCH (13:30)
[2021-05-04] MEDS: RALOXIFENE HCL 60 MG TABLET PO SCH (13:43)
[2021-05-04] MEDS ORDERED: AEC81 PO (13:59)
[2021-05-04] MEDS ORDERED: HYDR-4060 PO (13:59)
[2021-05-04 15:52] VITALS: BP 131/39
[2021-05-04] MEDS ORDERED: ALBUTEROL 0.042% 1.25MG/3ML IH ONE (17:00)
[2021-05-05] MEDS ORDERED: BISACODYL 10 MG SUPP.RECT RC PRN (13:00)
[2021-05-05] MEDS ORDERED: HYDR-4060 PO (14:17)
== END 2021-05-04 18:03 | disposition home health service (06) | DRG 470 ==
LOC: DAHIP 07:49 → EDSTATUS 08:00 → 4AH 14:17
PROVIDERS: ADMIT Orthopaedic Surgery; ATTEND Orthopaedic Surgery
PROC: 0SRD0J9 Replacement of Left Knee Joint with Synthetic Substitute, Cemented, Open Approach (ICD-10-PCS; principal; 2021-05-02 11:45)
DX: M17.12 Unilateral primary osteoarthritis, left knee (principal); I11.0 Hypertensive heart disease with heart failure; I25.10 Atherosclerotic heart disease of native coronary artery without angina pectoris; E78.5 Hyperlipidemia, unspecified; Z20.822 Contact with and (suspected) exposure to COVID-19; I50.9 Heart failure, unspecified; G89.29 Other chronic pain; Z96.651 Presence of right artificial knee joint; Z90.49 Acquired absence of other specified parts of digestive tract; Z90.710 Acquired absence of both cervix and uterus; Z88.8 Allergy status to other drugs, medicaments and biological substances; Z87.891 Personal history of nicotine dependence; Z95.5 Presence of coronary angioplasty implant and graft; Z82.49 Family history of ischemic heart disease and other diseases of the circulatory system
CPT/HCPCS: 36415; 80048; 85025; 85027; 87635; 87641; 94640; 97039; G0378; J0330; J0690; J1170; J1885; J2001; J2250; J2704; J2710; J2795; J3010; J3490; J7120

== ENCOUNTER 2023-09-19 18:23 | Emergency (ER) | payer MEDICARE ==
[~2023-09-19] VITALS: Ht 154.9 cm; Wt 74.8 kg
[~2023-09-19 18:23] MED LIST changes: +CELEBREX PO; +HYDR-4060 PO; -POTA10CA44 PO; +POTA10CA95 PO; +RALO60 PO; -RALO60TA PO
[2023-09-19 19:21] LABS: APPEARANCE,URINE CLEAR (CLEAR); BILIRUBIN,URINE NEGATIVE (NEGATIVE); COLOR,URINE LIGHT-YELLOW (YELLOW); GLUCOSE, URINE (UA) NEGATIVE (NEGATIVE); KETONES,URINE NEGATIVE (NEGATIVE); LEUKOCYTE ESTERASE ,URINE NEGATIVE Leu/uL (NEGATIVE); NITRATE,URINE NEGATIVE (NEGATIVE); PROTEIN,URINE NEGATIVE (NEGATIVE); UROBILINOGEN,URINE 0.2 mg/dL (0.2-1.0)
[2023-09-19 19:23] LABS: ADD UA MICROSCOPIC YES
[2023-09-19 19:30] LABS: BASOPHILS # (AUTO) 0.03 K/uL (0.00-0.20); BASOPHILS % (AUTO) 0.3 % (0.0-5.0); EOSINOPHILS # (AUTO) 0.14 K/uL (0.00-0.70); EOSINOPHILS % (AUTO) 1.4 % (0.0-8.0); HEMATOCRIT 31.5 % (36-48); IMMATURE GRANULOCYTE ABSOLUTE 0.04 K/uL (0-1); LYMPHOCYTES # (AUTO) 0.6 K/uL (1.0-4.8); MEAN CORPUSCULAR HEMOGLOBIN 28.5 pg (27.0-33.0); MEAN CORPUSCULAR HGB CONC 35.9 g/dL (32.0-36.0); MEAN CORPUSCULAR VOLUME 79.3 fL (79-99); MONOCYTES # (AUTO) 0.8 K/uL (0.1-1.0); MONOCYTES % (AUTO) 8.1 % (3.0-13.0); NEUTROPHILS # (AUTO) 8.4 K/uL (1.8-7.7); NEUTROPHILS % (AUTO) 83.8 % (40.0-77.0); PLATELET COUNT (AUTO) 69 K/uL (130-400); RED BLOOD CELL COUNT(AUTO) 3.97 MIL/uL (4.00-5.50); RED CELL DISTRIBUTION WIDTH 13.4 % (11.0-15.5)
[2023-09-19 19:37] LABS: BACTERIA,URINE RARE /HPF (None Seen); WBC,URINE 0-1 /HPF (0-1)
[2023-09-19 19:42] LABS: INR 1.06 (0.85-1.15); PARTIAL THROMBOPLASTIN TIME 27.1 SEC (26.3-35.5); PROTHROMBIN TIME 11.2 SEC (9.6-11.6)
[2023-09-19 19:43] LABS: ALANINE AMINOTRANSFERASE 19 U/L (12-78); ALBUMIN 2.7 g/dL (3.5-5.0); ASPARTATE AMINOTRANSFERASE 17 U/L (10-37); BILIRUBIN,TOTAL 0.4 mg/dL (0.2-1.0); CARBON DIOXIDE 23 mmol/L (21-32); GLOMERULAR FILTR. RATE CALC 56 mL/min (>90); GLUCOSE,RANDOM 99 mg/dL (70-105); POTASSIUM 4.2 mmol/L (3.5-5.1); SODIUM SERUM 119 mmol/L (136-145); TOTAL PROTEIN, SERUM 7.4 g/dL (6.0-8.3); UREA NITROGEN, BLOOD 21 mg/dL (7-18)
[2023-09-19 19:54] LABS: CHLORIDE 89 mmol/L (101-111)
[2023-09-19 19:57] LABS: AMMONIA < 10 umol/L (11-32)
[2023-09-19] MEDS: 0.9%NACL 1000ML 1,000 ML IV ONE (20:03)
[2023-09-19] MEDS ORDERED: RALO60 PO (22:25)
[2023-09-19] MEDS ORDERED: CELE100C PO (22:25)
[2023-09-19] MEDS ORDERED: LEVO25TA54 PO (22:25)
[2023-09-19] MEDS ORDERED: METO-409 PO (22:25)
[2023-09-19] MEDS ORDERED: FAMO20TA8 PO (22:25)
[2023-09-19] MEDS ORDERED: METO-391 PO (22:25)
[2023-09-19] MEDS ORDERED: PREG150C PO (22:25)
[2023-09-19] MEDS ORDERED: DOXA1TAB2 PO (22:25)
[2023-09-19] MEDS ORDERED: ESOM40CA PO (22:25)
[2023-09-19] MEDS ORDERED: MONT-47 PO (22:25)
[2023-09-19] MEDS ORDERED: SIMV-43 PO (22:25)
[2023-09-19] MEDS ORDERED: CETI-89 PO (22:25)
[2023-09-19] MEDS ORDERED: SPIR25TA6 PO (22:25)
[2023-09-19] MEDS ORDERED: SULF1TAB42 PO (22:25)
[2023-09-19] MEDS ORDERED: OXYB10TA30 PO (22:25)
[2023-09-19] MEDS ORDERED: TELM80TA10 PO (22:25)
[2023-09-20 00:38] VITALS: BP 116/61; PULSE 81; RESP 18; O2SAT 96
[2023-09-20 01:01] LABS: CREATININE 0.9 mg/dL (0.5-1.0); POTASSIUM 3.8 mmol/L (3.5-5.1)
== END 2023-09-20 01:50 | disposition short-term general hospital (02) ==
LOC: EDH 18:23
DX: G93.89 Other specified disorders of brain (principal); E87.1 Hypo-osmolality and hyponatremia; I10 Essential (primary) hypertension; M19.90 Unspecified osteoarthritis, unspecified site; D69.6 Thrombocytopenia, unspecified; Z79.82 Long term (current) use of aspirin; Z79.84 Long term (current) use of oral hypoglycemic drugs; Z79.899 Other long term (current) drug therapy; Z90.710 Acquired absence of both cervix and uterus; Z98.890 Other specified postprocedural states; Z88.8 Allergy status to other drugs, medicaments and biological substances
CPT/HCPCS: 99285; 96360; 70450; 80053; 82140; 85025; 85610; 85730; 82948; 81001; 36415 ×2; 80048; J7030

== ENCOUNTER → 2023-10-23 | Outpatient (CLI) | payer MEDICARE ==
[~2023-10-23] MED LIST changes: +CELE100C PO; +CETI-89 PO; +DOXA1TAB2 PO; +ESOM40CA PO; -ESOM40CA54 PO; +ESOM40CA66 PO; +FAMO20TA8 PO; +LEVO25TA54 PO; +METO-409 PO; +MONT-47 PO; +PREG150C PO; +SPIR25TA6 PO; +SULF1TAB42 PO; +TELM80TA10 PO
[2023-10-23 16:29] LABS: CREATININE 0.9 mg/dL (0.5-1.0); POTASSIUM 4.5 mmol/L (3.5-5.1)
== END | disposition home or self-care (01) ==
LOC: LAB 15:48
PROVIDERS: ATTEND Internal Medicine Cardiovascular Disease
DX: I50.32 Chronic diastolic (congestive) heart failure (principal)
CPT/HCPCS: 36415; 80048

== ENCOUNTER → 2023-11-20 | Outpatient (CLI) | payer MEDICARE ==
[2023-11-20 16:20] LABS: CREATININE 0.9 mg/dL (0.5-1.0); POTASSIUM 4.2 mmol/L (3.5-5.1)
== END | disposition home or self-care (01) ==
LOC: LAB 12:13
PROVIDERS: ATTEND Internal Medicine Cardiovascular Disease
DX: I50.32 Chronic diastolic (congestive) heart failure (principal)
CPT/HCPCS: 36415; 80048

== ENCOUNTER 2024-03-25 09:50 | Emergency (ER) | payer MEDICARE ==
[~2024-03-25] VITALS: Ht 154.9 cm; Wt 80.7 kg
[~2024-03-25 09:50] MED LIST changes: -ACET-2027 PO; -AEC81 PO; +ALBU2.5V2 IH; -AMLO-513 PO; +AMOX1TAB16 PO; +BENZ-226 PO; -CA/D1TAB7 PO; -CELE100C PO; -CELEBREX PO; -CETI-89 PO; +ESOM20CA51 PO; -ESOM40CA PO; -ESOM40CA66 PO; -FAMO20TA8 PO; -FERR-82 PO; -FLUT16H NASAL; -FLUT1AER IH; +FLUT1BLS15 IH; +FLUT30CR TP; -FOLI1TAB85 PO; -FURO40TA5 PO; -GLUC-148 PO; -HYDR-4060 PO; +LEVE250T2 PO; +LEVE500T98 PO; -LEVO25TA54 PO; -MAGN400C PO; -MONT-39 PO; -MONT-47 PO; -MULT-959 PO; -OXYB10TA30 PO; -POTA10CA95 PO; +PRED20TA3 PO; -PREG150C PO; -PREG75 PO; -RALO60 PO; -SIMV-43 PO; -SPIR25TA6 PO; -SULF1TAB42 PO; -SULF1TAB89 PO; -UBID200C18 PO; -VITAMIN B12 PO
--- NOTE | 2024-03-25 10:10 | ERN ---
ED Note History of Present Illness Stated Complaint: LOWER ABD PAIN, CONSTIPATION Chief Complaint: Abdominal Pain Time Seen by MD: 09:54 Dictation: Patient is a 84-year-old female with a past medical history of hypothyroidism, hypertension, hyperlipidemia, diverticulitis, arthritis, constipation, frequent UTIs came to the ED with a chief complaint of low back pain since 2 weeks. Patient has been to [facility] ED 2 weeks back for the low back pain , on CT imaging patient was diagnosed with diverticulitis and was prescribed antibiotics and discharged. Patient did not have any relief with abdominal and back pain. She also mentioned that she was diagnosed with ESBL and is having ID specialist appointment soon. Allergies: Coded Allergies: diphenhydramine (Unverified Allergy, Unknown, 06/09/19) meperidine (Unverified Allergy, Unknown, 06/09/19) Home Meds Active Scripts Methocarbamol (Robaxin) 750 Mg Tab, 500 MG PO BID for 5 Days, #10 TAB Prov:WILBERTO JUSTICE MD 03/25/24 Prednisone (Prednisone) 20 Mg Tablet, 1 TAB PO DAILY for 3 Days, #5 TAB 0 Refills Prov:DILIP OROPEZA MD 03/02/24 Benzonatate (Benzonatate) 100 Mg Capsule, 200 MG PO TID PRN for cough for 7 Days, #21 CAP 1 Refill Prov:DILIP OROPEZA MD 03/02/24 Albuterol Sulfate (Albuterol Sulfate) 2.5 Mg/3 Ml (0.083 %) Vial.neb, 2.5 MG IH K0HCCCI for 10 Days, #120 INH 2 Refills Prov:DILIP OROPEZA MD 03/02/24 Amoxicillin/Potassium Clav (Amox Tr-K Clv 875-125 mg Tab) 875 Mg-125 Mg Tablet, 1 TAB PO BID for 10 Days, #20 TAB 0 Refills Prov:DILIP OROPEZA MD 03/02/24 Reported Medications Fluticasone/Umeclidin/Vilanter (Trelegy Ellipta 200-62.5-25) 200-62.5 Blst.w.dev, 1 PUFF IH DAILY for 30 Days, #60 EACH 0 Refills 02/28/24 Fluticasone Propionate (Fluticasone Propionate) 0.05 % Cream..g., 1 APPL TP DAILY for 30 Days, #60 GM 0 Refills 02/28/24 Levothyroxine Sodium (Levothyroxine) 25 Mcg Capsule, 25 MCG PO ACBKFST, CAP 02/28/24 Esomeprazole Magnesium (Esomeprazole Magnesium) 20 Mg Capsule.dr, 1 CAP PO DAILY for acid reflux for 30 Days, #30 CAP 0 Refills 02/28/24 Doxazosin Mesylate (Doxazosin Mesylate) 1 Mg Tablet, 1 MG PO BID, TAB 02/28/24 Telmisartan (Telmisartan) 80 Mg Tablet, 80 MG PO PM, TAB 02/28/24 Levetiracetam (Levetiracetam) 250 Mg Tablet, 250 MG PO DAILY, TAB 02/27/24 Levetiracetam (Levetiracetam) 500 Mg Tab.er.24h, 500 MG PO HS, TAB 02/27/24 Metoprolol Succinate (Metoprolol Succinate) 50 Mg Tab.er.24h, 50 MG PO HS, TAB 02/27/24 Metoprolol Succinate (Metoprolol Succinate) 100 Mg Tab.er.24h, 100 MG PO AM, TAB 02/27/24 Past Medical History Past Medical History: Arthritis, Asthma, Diverticulitis, High Cholesterol, Heart Disease, Hypertension Additional Past Medical Hx: HX BRAIN BLEED Surgical History: Appendectomy, Hysterectomy History: Not Applicable Review of System Dictation Constitutional-no chills.Weight gain of 20 lb in 10 days Eyes-no injury, pain, redness and discharge ENT-no injury, pain, swelling Cardiovascular no chest pain, palpitations, edema Respiratory no shortness of breath, cough, wheezing Abdomen/GI-no abdominal pain, diarrhea, vomiting, nausea. Last bowel movement 1 week ago, no flatus Back no injury and pain Genitourinary no injury, bleeding and discharge . Informed low urine output Musculoskeletal/extremities no injury, deformity Skin no rash, discoloration Neuro-no headache, weakness, numbness, tingling, seizures, tremors Psych-no suicidal ideation, homicidal ideation, hallucinations, depression, anxiety, memory loss Initial Vital Sign VS Vital Signs Date Time Temp Pulse Resp B/P (MAP) Pulse Ox O2 Delivery O2 Flow Rate FiO2 03/25/24 09:52 97.9 76 16 149/62 96 Room Air 0 03/25/24 12:00 21 Physical Exam Dictation General-patient is awake alert and oriented Head/neck-normocephalic, atraumatic Eyes-PERRL, EOMI, vision at baseline Neck-trachea midline, supple, no nuchal rigidity Cardiovascular-RRR, normal S1/S2, no MRG is, no JVD Respiratory-no distress, wheezing, rales, rhonchi Abdomen-no tenderness, guarding, soft, and distended Skin warm, dry, normal turgor, no rash Musculoskeletal/extremities pulses equal, no cyanosis Neuro-COA X 4, GCS 15, strength 5/5, CN 2-12 intact Psych-normal behavior, mood and affect normal Results (Laboratory/Radiology) Laboratory/Radiology Laboratory Tests Test 03/25/24 10:22 03/25/24 12:20 White Blood Count 5.8 K/uL (4.8-10.8) Red Blood Count 3.87 MIL/uL (4.00-5.50) L Hemoglobin 10.6 g/dL (12.0-16.0) L Hematocrit 32.6 % (36-48) L Mean Corpuscular Volume 84.2 fL (79-99) Mean Corpuscular Hemoglobin 27.4 pg (27.0-33.0) Mean Corpuscular Hemoglobin Concent 32.5 g/dL (32.0-36.0) Red Cell Distribution Width 14.4 % (11.0-15.5) Platelet Count 147 K/uL (130-400) Mean Platelet Volume 12.7 fL (7.5-10.5) H Immature Granulocyte % (Auto) 0.3 % (0-1) Neutrophils (%) (Auto) 48.1 % (40.0-77.0) Lymphocytes (%) (Auto) 14.6 % (21.0-51.0) L Monocytes (%) (Auto) 12.0 % (3.0-13.0) Eosinophils (%) (Auto) 23.6 % (0.0-8.0) H Basophils (%) (Auto) 1.4 % (0.0-5.0) Neutrophils # (Auto) 2.8 K/uL (1.8-7.7) Lymphocytes # (Auto) 0.9 K/uL (1.0-4.8) L Monocytes # (Auto) 0.7 K/uL (0.1-1.0) Eosinophils # (Auto) 1.37 K/uL (0.00-0.70) H Basophils # (Auto) 0.08 K/uL (0.00-0.20) Absolute Immature Granulocyte (auto 0.02 K/uL (0-1) Nucleated Red Blood Cells 0.0 % (0.0-0.19) White Cell Morphology Comment See comments Sodium Level 135 mmol/L (136-145) L Potassium Level 4.3 mmol/L (3.5-5.1) Chloride Level 100 mmol/L (101-111) L Carbon Dioxide Level 31 mmol/L (21-32) Blood Urea Nitrogen 11 mg/dL (7-18) Creatinine 1.0 mg/dL (0.5-1.0) Glomerular Filtration Rate Calc 56 mL/min (>90) Random Glucose 116 mg/dL (70-105) H Total Calcium 8.5 mg/dL (8.5-10.1) Total Bilirubin 0.2 mg/dL (0.2-1.0) Aspartate Amino Transf (AST/SGOT) 9 U/L (10-37) L Alanine Aminotransferase (ALT/SGPT) 8 U/L (12-78) L Alkaline Phosphatase 41 U/L (50-136) L Total Protein 6.4 g/dL (6.0-8.3) Albumin 2.2 g/dL (3.5-5.0) L Urine Color COLORLESS (YELLOW) Urine Appearance CLEAR (CLEAR) Urine pH 7.5 (5.0-8.0) Urine Specific Colbert 1.007 (1.001-1.031) Urine Protein NEGATIVE mg/dL (NEGATIVE) Urine Glucose (UA) NEGATIVE mg/dL (NEGATIVE) Urine Ketones NEGATIVE mg/dL (NEGATIVE) Urine Occult Blood NEGATIVE (NEGATIVE) Urine Nitrate NEGATIVE (NEGATIVE) Urine Bilirubin NEGATIVE mg/dL (NEGATIVE) Urine Urobilinogen 0.2 mg/dL (0.2-1.0) Urine Leukocyte Esterase NEGATIVE Joo/uL ED Course ED Course Orders Procedure Category Date Status Time Cbc With Differential LAB 03/25/24 Complete 09:59 Comprehensive LAB 03/25/24 Complete Metabolic Panel 09:59 Urinalysis Profile LAB 03/25/24 Complete 09:59 Orphenadrine Citrate PHA 03/25/24 Complete (Norflex) 11:30 Triamcinolone Acet PHA 03/25/24 Complete 40mg/Ml 1ml (Kenalog 11:30 Current Medications Medications (Trade) Dose Ordered Sig/Boris Route PRN Reason Start Time Stop Time Status Last Admin Dose Admin Orphenadrine Citrate (Norflex) 60 mg ONCE ONCE IM 03/25/24 11:30 03/25/24 11:31 DC 03/25/24 12:07 Triamcinolone Acetonide (Kenalog 40) 40 mg ONCE ONCE IM 03/25/24 11:30 03/25/24 11:31 DC 03/25/24 12:07 Vital Signs Date Time Temp Pulse Resp B/P (MAP) Pulse Ox O2 Delivery O2 Flow Rate FiO2 03/25/24 12:00 97.9 76 16 149/62 100 Room Air* 0 21 03/25/24 09:52 97.9 76 16 149/62 96 Room Air 0 Medical Decision Making MDM INITIAL IMPRESSION Initial history and physical concerning for musculoskeletal pain, renal colic, nephrolithiasis Contributing medical problems: History of arthritis, diverticulitis I have reviewed the triage nursing notes and vital signs. Initial plan: Laboratory evaluation . DATA REVIEW I have reviewed additional NN, repeat VS, and monitoring where indicated Heart rate, blood pressure, and O2 saturation are [acceptable]. . ED COURSE Interventions: Patient is given Kenalog and Norflex Reassessment: Patient feels better DISPOSITION Final diagnostic impression: Musculoskeletal pain I discussed my findings, clinical impression and treatment recommendations with the patient and family I have reviewed the social factors contributing to the patient's presentation and disposition planning. My final plan for disposition was made based upon -mild risk of complications and potential morbidity of the patient's condition. -Discussion with the patient and family regarding management options. Patient will be discharged with muscle relaxant course for 5 days and pain management DX & DISP Disposition: Discharge Departure Impression: Primary Impression: Muscle spasm of back Condition: Stable Scripts Methocarbamol (Robaxin) 750 Mg Tab 500 MG PO BID for 5 Days, #10 TAB Prov: WILBERTO JUSTICE MD 03/25/24 Additional Instructions: Come back to the ED if you have any acute or emergency symptoms Stretch your muscle to help relieve the cramp. It may be helpful to keep your mu scle in the stretched position until the cramp is gone. Apply heat to help decrease pain and muscle spasms. Apply heat on the area for 20 to 30 minutes every 2 hours for as many days as directed. Apply ice to help decrease swelling and pain. Ice may also help prevent tissue damage. Use an ice pack, or put crushed ice in a plastic bag. Cover it with a towel and place it on your muscle for 15 to 20 minutes every hour or as directed. Drink more liquids to help prevent muscle cramps caused by dehydration. Sports drinks may help replace electrolytes you lose through sweat during exercise. Ask your healthcare provider how much liquid to drink each day and which liquids are best for you. Eat healthy foods , such as fruits, vegetables, whole grains, low-fat dairy pr oducts, and lean proteins (meat, beans, and fish). If you are , ask your healthcare provider about foods that are high in magnesium and sodium. They may help to relieve cramps during . Massage your muscle to help relieve the cramp. Take frequent deep breaths until the cramp feels better. Lie down while you take the deep breaths so you do not get dizzy or lightheaded. Take medications as prescribed Referrals: JESS ENGEL (PCP) Time of Disposition: 12:53 I have reviewed I have reviewed the case I WAS PRESENT AND PARTICIPATED IN THE CARE OF THIS PATIENT ALONGSIDE WITH THE [facility] PHYSICIAN. I HAVE REVIEWED AND PERSONALLY MADE AND APPROVED THE MANAGEMENT PLAN THAT IS DOCUMENTED IN THE NOTE BY MYSELF WITH THE RESIDENT PHYSICIAN. I ACKNOWLEDGED FOR RESPONSIBILITY FOR THE PATIENT'S MANAGEMENT PLAN. I have examined patient WILBERTO JUSTICE MD Mar 25, 2024 10:09 NERY OJEDA MD Mar 26, 2024 07:41
[2024-03-25 10:30] LABS: BASOPHILS # (AUTO) 0.08 K/uL (0.00-0.20); BASOPHILS % (AUTO) 1.4 % (0.0-5.0); EOSINOPHILS # (AUTO) 1.37 K/uL (0.00-0.70); EOSINOPHILS % (AUTO) 23.6 % (0.0-8.0); HEMATOCRIT 32.6 % (36-48); IMMATURE GRANULOCYTE ABSOLUTE 0.02 K/uL (0-1); LYMPHOCYTES # (AUTO) 0.9 K/uL (1.0-4.8); LYMPHOCYTES % (AUTO) 14.6 % (21.0-51.0); MEAN CORPUSCULAR HEMOGLOBIN 27.4 pg (27.0-33.0); MEAN CORPUSCULAR HGB CONC 32.5 g/dL (32.0-36.0); MEAN CORPUSCULAR VOLUME 84.2 fL (79-99); MONOCYTES # (AUTO) 0.7 K/uL (0.1-1.0); NEUTROPHILS # (AUTO) 2.8 K/uL (1.8-7.7); NEUTROPHILS % (AUTO) 48.1 % (40.0-77.0); PLATELET COUNT (AUTO) 147 K/uL (130-400); RED BLOOD CELL COUNT(AUTO) 3.87 MIL/uL (4.00-5.50); RED CELL DISTRIBUTION WIDTH 14.4 % (11.0-15.5); WHITE BLOOD COUNT (AUTO) 5.8 K/uL (4.8-10.8)
[2024-03-25 10:38] LABS: POTASSIUM 4.3 mmol/L (3.5-5.1)
[2024-03-25 10:43] LABS: ALBUMIN 2.2 g/dL (3.5-5.0); BILIRUBIN,TOTAL 0.2 mg/dL (0.2-1.0); TOTAL PROTEIN, SERUM 6.4 g/dL (6.0-8.3)
[2024-03-25 12:00] VITALS: BP 149/62; PULSE 76; RESP 16; TEMP 97.9; O2SAT 100
[2024-03-25] MEDS: TRIAMCINOLONE ACETONIDE 40 MG/ML 1ML VIAL IM ONE (12:07)
[2024-03-25] MEDS: ORPHENADRINE 60MG/2ML IM ONE (12:07)
[2024-03-25 12:43] LABS: APPEARANCE,URINE CLEAR (CLEAR); BILIRUBIN,URINE NEGATIVE (NEGATIVE); COLOR,URINE COLORLESS (YELLOW); GLUCOSE, URINE (UA) NEGATIVE (NEGATIVE); KETONES,URINE NEGATIVE (NEGATIVE); LEUKOCYTE ESTERASE ,URINE NEGATIVE Leu/uL (NEGATIVE); NITRATE,URINE NEGATIVE (NEGATIVE); OCCULT BLOOD,URINE NEGATIVE (NEGATIVE); PH,URINE 7.5 (5.0-8.0); PROTEIN,URINE NEGATIVE (NEGATIVE); UROBILINOGEN,URINE 0.2 mg/dL (0.2-1.0)
[2024-03-25 12:51] LABS: ADD UA MICROSCOPIC NO
[2024-03-25] MEDS ORDERED: METH-662 PO (12:52)
== END 2024-03-25 13:17 | disposition home or self-care (01) ==
LOC: EDH 09:50
DX: M62.830 Muscle spasm of back (principal); E78.00 Pure hypercholesterolemia, unspecified; I10 Essential (primary) hypertension; J45.909 Unspecified asthma, uncomplicated; Z79.52 Long term (current) use of systemic steroids; Z86.73 Personal history of transient ischemic attack (TIA), and cerebral infarction without residual deficits; Z88.5 Allergy status to narcotic agent; Z90.49 Acquired absence of other specified parts of digestive tract; Z90.710 Acquired absence of both cervix and uterus
CPT/HCPCS: 99284; 80053; 85025; 81003; 36415; 96372 ×2; J3301; J2360

== ENCOUNTER → 2024-05-12 | Outpatient (CLI) | payer MEDICARE ==
[~2024-05-12] MED LIST changes: +IBUP-2077 PO; +METH-662 PO; +OMEP40CA21 PO; +PHEN-776 PO
--- NOTE | 2024-05-12 13:32 | HMCIMG ---
UPPER GI TRACT, WO KUB REASON: GASTRO-ESOPHAGEAL REFLUX DISEASE W ESOPHAGITIS , W/O BLEEDING. COMPARISON: None TECHNIQUE: Biphasic upper GI series study was performed. FINDINGS: There is no obstruction to the antegrade passage of barium from mouth through jejunum. 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 There is mild narrowing of the distal esophagus. There is moderate size hiatal hernia. There is gastroesophageal reflux seen to the level of met thoracic esophagus. Stomach is moderately distended without wall thickening or mass lesion. Duodenal bulb and duodenal sweep are unremarkable. IMPRESSION: Moderate size hiatal hernia. Gastroesophageal reflux to the level of mid thoracic esophagus. No obstruction.
== END | disposition home or self-care (01) ==
LOC: RAH 09:58
PROVIDERS: ATTEND Surgery
DX: K21.00 Gastro-esophageal reflux disease with esophagitis, without bleeding (principal); K44.9 Diaphragmatic hernia without obstruction or gangrene; K31.89 Other diseases of stomach and duodenum
CPT/HCPCS: 74240

== ENCOUNTER 2024-07-04 10:09 | Inpatient (IN) | payer MEDICARE ==
[~2024-07-04] VITALS: Ht 154.9 cm; Wt 72.6 kg
--- NOTE | 2024-07-04 10:15 | ERN ---
ED Note History of Present Illness Stated Complaint: DIZZINESS Chief Complaint: Dizzy/Light Headed Time Seen by MD: 10:12 Dictation: PATIENT IS AN 84-YEAR-OLD FEMALE COMING IN WITH HER SISTER WITH COMPLAINTS OF HAVING GENERALIZED BODY WEAKNESS DIZZINESS AND FEELING LIGHTHEADED FOR THE LAST SEVERAL DAYS. SHE STATES SHE HAS A HAS A HEADACHE ON THE CROWN OF HER HEAD HOWEVER NIH IS 0. SHE ALSO STATES SHE VOMITED LAST NIGHT BECAUSE OF A LOT OF BILE AND SHE HAS A HIATAL HERNIA THAT IS DUE TO HAVE SURGERY ON IT [place] [facility] [place]ST PAIN NO BACK PAIN NO SOB. Allergies: Coded Allergies: diphenhydramine (Unverified Allergy, Unknown, 06/09/19) meperidine (Unverified Allergy, Unknown, 06/09/19) Home Meds Active Scripts Omeprazole (Omeprazole) 40 Mg Capsule.dr, 1 CAP PO DAILY for 30 Days, #30 CAP 0 Refills Prov:BELEN GARCIA NP 04/09/24 Ibuprofen (Ibuprofen 800 mg Tab) 800 Mg Tab, 800 MG PO Q8H PRN for fever or pain, #30 TAB 0 Refills Prov:BELEN GARCIA NP 04/09/24 Phenazopyridine HCl (Pyridium) 200 Mg Tablet, 200 MG PO TID for painful urination, #10 TAB 0 Refills Prov:BELEN GARCIA NP 04/09/24 Amoxicillin/Potassium Clav (Amox Tr-K Clv 875-125 mg Tab) 875 Mg-125 Mg Tablet, 1 EACH PO BID for 7 Days, #14 TAB 0 Refills Prov:BELEN GARCIA NP 04/09/24 Methocarbamol (Robaxin) 750 Mg Tab, 500 MG PO BID for 5 Days, #10 TAB Prov:WILBERTO JUSTICE MD 03/25/24 Prednisone (Prednisone) 20 Mg Tablet, 1 TAB PO DAILY for 3 Days, #5 TAB 0 Refills Prov:DILIP OROPEZA MD 03/02/24 Benzonatate (Benzonatate) 100 Mg Capsule, 200 MG PO TID PRN for cough for 7 Days, #21 CAP 1 Refill Prov:DILIP OROPEZA MD 03/02/24 Albuterol Sulfate (Albuterol Sulfate) 2.5 Mg/3 Ml (0.083 %) Vial.neb, 2.5 MG IH [id number] for 10 Days, #120 INH 2 Refills Prov:DILIP OROPEZA MD 03/02/24 Amoxicillin/Potassium Clav (Amox Tr-K Clv 875-125 mg Tab) 875 Mg-125 Mg Tablet, 1 TAB PO BID for 10 Days, #20 TAB 0 Refills Prov:DILIP OROPEZA MD 03/02/24 Reported Medications Fluticasone/Umeclidin/Vilanter (Trelegy Ellipta 200-62.5-25) 200-62.5 Blst.w.dev, 1 PUFF IH DAILY for 30 Days, #60 EACH 0 Refills 02/28/24 Fluticasone Propionate (Fluticasone Propionate) 0.05 % Cream..g., 1 APPL TP DAILY for 30 Days, #60 GM 0 Refills 02/28/24 Levothyroxine Sodium (Levothyroxine) 25 Mcg Capsule, 25 MCG PO ACBKFST, CAP 02/28/24 Esomeprazole Magnesium (Esomeprazole Magnesium) 20 Mg Capsule.dr, 1 CAP PO DAILY for acid reflux for 30 Days, #30 CAP 0 Refills 02/28/24 Doxazosin Mesylate (Doxazosin Mesylate) 1 Mg Tablet, 1 MG PO BID, TAB 02/28/24 Telmisartan (Telmisartan) 80 Mg Tablet, 80 MG PO PM, TAB 02/28/24 Levetiracetam (Levetiracetam) 250 Mg Tablet, 250 MG PO DAILY, TAB 02/27/24 Levetiracetam (Levetiracetam) 500 Mg Tab.er.24h, 500 MG PO HS, TAB 02/27/24 Metoprolol Succinate (Metoprolol Succinate) 50 Mg Tab.er.24h, 50 MG PO HS, TAB 02/27/24 Metoprolol Succinate (Metoprolol Succinate) 100 Mg Tab.er.24h, 100 MG PO AM, TAB 02/27/24 Past Medical History Past Medical History: Arthritis, Asthma, Diverticulitis, Diverticulosis, High Cholesterol, Hypertension, Pneumonia, Seizure Additional Past Medical Hx: HX BRAIN BLEED Surgical History: Other History: Not Applicable RN Note Reviewed/Agreed w/PFSH: Yes Review of System Dictation CONSTITUTIONAL: NEGATIVE EXCEPT FOR HPI WEAKNESS HEAD/FACE: NEGATIVE EXCEPT FOR HPI EENT: NEGATIVE EXCEPT FOR HPI RESPIRATORY: NEGATIVE EXCEPT FOR HPI GASTROINTESTINAL/ABDOMINAL: NEGATIVE EXCEPT FOR HPI GENITOURINARY: NEGATIVE EXCEPT FOR HPI MUSCULOSKELETAL: NEGATIVE EXCEPT FOR HPI INTEGUMENTARY: NEGATIVE EXCEPT FOR HPI NEUROLOGICAL/PSYCH: NEGATIVE EXCEPT FOR HPI HEADACHE HEMATOLOGIC/LYMPHATIC: NEGATIVE EXCEPT FOR HPI ALL SYSTEMS NEGATIVE, EXCEPT NOTED ABOVE. 13 POINT REVIEW OF SYSTEMS ASSESSED AND ALL NEGATIVE EXCEPT FOR ABOVE. Initial Vital Sign VS Vital Signs Date Time Temp Pulse Resp B/P (MAP) Pulse Ox O2 Delivery O2 Flow Rate FiO2 07/04/24 10:12 100.6 97 18 101/47 94 Room Air 07/04/24 11:10 0 21 Physical Exam Dictation VITAL SIGNS REVIEWED GENERAL APPEARANCE: ALERT, ORIENTED X 3, 06/16 PAIN PATIENT APPEARS MILDLY DEBILITATED HEAD AND FACE: NON-TRAUMATIC. EYES: PERRL, PINK CONJUNCTIVAS, EYELID NO TRAUMA, ANTERIOR CHAMBER WITH ARCUS SENILIS. EARS: PINNAS INTACT AND NO SIGNS OF TRAUMA OR ERYTHEMA EAR CANALS CLEAR AND NO DISCHARGE TM NO ERYTHEMA NOSE: NO DISCHARGE, NO BLEEDING. OROPHARYNX: MOUTH NORMAL, TONGUE PINK, PHARYNX CLEAR,NO ERYTHEMA, TONSILS NO EXUDATES, NO ABSCESSES NOTED, MUCOUS MEMBRANE MOIST NECK: SUPPLE, NON-TENDER, NO THYROMEGALY, NO MASSES, NO JVD, NO BRUITS BREAST:DEFERRED CHEST:NO TENDERNESS, NO CREPITUS, NO PARADOXICAL MOVEMENT, NO RETRACTIONS LUNGS:CLEAR, WELL-VENTILATED, SYMMETRIC, NO RALES, NO WHEEZING, NO RHONCHI, NO STRIDOR, GOOD BREATH SOUNDS BILATERALLY HEART: REGULAR RATE, REGULAR RHYTHM, NO MURMUR, NO GALLOPS VASCULAR: NO PERIPHERAL EDEMA, ABDOMEN: SOFT, POSITIVE BOWEL SOUNDS, NONDISTENDED, NO GUARDING, NONTENDER, NO REBOUND, NO MASSES NO HEPATOMEGALY, NO SPLENOMEGALY, NO BRICEÑO'S SIGN, NO HERNIAS. RECTAL: DEFERRED GENITAL: DEFERRED NEUROLOGICAL: NORMAL SPEECH, MOTOR FUNCTION INTACT, 4/+5 STRENGTH ALL EXTREMITIES. MUSCULOSKELETAL: NECK NONTENDER, FULL RANGE OF MOTION, BACK NONTENDER, FULL RANGE OF MOTION, EXTREMITIES: NONTENDER, FULL RANGE OF MOTION SKIN: COLOR PINK, DRY, NO TURGOR, NO RASH, NO LACERATIONS, NO ABRASIONS, NO CONTUSIONS. LYMPHATIC: DEFERRED Results (Laboratory/Radiology) Laboratory/Radiology Laboratory Tests Test 07/04/24 10:55 07/04/24 12:51 07/04/24 14:17 White Blood Count 15.1 K/uL (4.8-10.8) H Red Blood Count 3.84 MIL/uL (4.00-5.50) L Hemoglobin 10.9 g/dL (12.0-16.0) L Hematocrit 32.9 % (36-48) L Mean Corpuscular Volume 85.7 fL (79-99) Mean Corpuscular Hemoglobin 28.4 pg (27.0-33.0) Mean Corpuscular Hemoglobin Concent 33.1 g/dL (32.0-36.0) Red Cell Distribution Width 13.9 % (11.0-15.5) Platelet Count 130 K/uL (130-400) Mean Platelet Volume 12.2 fL (7.5-10.5) H Immature Granulocyte % (Auto) 0.4 % (0-1) Neutrophils (%) (Auto) 90.9 % (40.0-77.0) H Lymphocytes (%) (Auto) 3.0 % (21.0-51.0) L Monocytes (%) (Auto) 5.2 % (3.0-13.0) Eosinophils (%) (Auto) 0.3 % (0.0-8.0) Basophils (%) (Auto) 0.2 % (0.0-5.0) Neutrophils # (Auto) 13.8 K/uL (1.8-7.7) H Lymphocytes # (Auto) 0.5 K/uL (1.0-4.8) L Monocytes # (Auto) 0.8 K/uL (0.1-1.0) Eosinophils # (Auto) 0.04 K/uL (0.00-0.70) Basophils # (Auto) 0.03 K/uL (0.00-0.20) Absolute Immature Granulocyte (auto 0.06 K/uL (0-1) Nucleated Red Blood Cells 0.0 % (0.0-0.19) White Cell Morphology Comment See comments Sodium Level 139 mmol/L (136-145) Potassium Level 4.1 mmol/L (3.5-5.1) Chloride Level 106 mmol/L (101-111) Carbon Dioxide Level 29 mmol/L (21-32) Blood Urea Nitrogen 47 mg/dL (7-18) H Creatinine 1.4 mg/dL (0.5-1.0) H Glomerular Filtration Rate Calc 37 mL/min (>90) Random Glucose 120 mg/dL (70-105) H Total Calcium 8.8 mg/dL (8.5-10.1) Troponin I High Sensitivity 5 ng/L (4-50) Lipase 20 U/L (16-77) Blood Gas Specimen Type Arterial Arterial Blood pH 7.456 (7.350-7.450) Arterial Blood Partial Pressure CO2 34 mmHg (32-45) Arterial Blood Partial Pressure O2 60.0 mmHg (83.0-108.0) L Arterial Blood HCO3 23.2 mmol/L (21.0-28.0) Arterial Blood Oxygen Saturation 90.7 % (94.0-98.0) L Arterial Blood Base Excess -0.2 mmol/L (-2.0-3.0) Hemoglobin (Blood Gas) 11.2 g/dL (12.0-16.0) L Sodium (Blood Gas) 137 MMOL/L (136-145) Bedside Potassium (Blood Gas) 3.9 MMOL/L (3.4-4.5) Bedside Chloride (Blood Gas) 104 MMOL/L (98-107) Bedside Glucose (Blood Gas) 108 MG/DL (65-95) H Bedside Ionized Calcium (Blood Gas) 1.19 MMOL/L (1.15-1.33) Bedside Lactic Acid (Blood Gas) 1.16 MMOL/L (0.36-0.75) H Blood Gas Temperature 37.0 CELSIUS (35.5-37.0) Blood Gas Vent Mode RA (ROOM AIR) FiO2 21.0 % Blood Gas Specimen Comment RR DR NUÑEZ Lactic Acid Level 1.7 mmol/L (0.8-2.5) CHEST 1VW HISTORY: Cough COMPARISON: 02/29/2024 FINDINGS: A frontal projection of the chest was obtained. Bilateral pulmonary infiltrates are seen with right more than left. The heart is borderline enlarged. Degenerative changes are seen. No evidence of aortic calcification is seen. IMPRESSION: 1. Bilateral pulmonary infiltrates with right more than left. REASON: generalized weakness ORDERING PHYSICIAN: DAXA SHIN MD PROCEDURE: HEAD WO - CT HEAD/BRAIN W/O CONTRAST CT HEAD/BRAIN W/O CONTRAST HISTORY: Generalized weakness COMPARISON: None TECHNIQUE: Multiple sequential axial images of the head were obtained from the base of the skull through vertex. Patient was not given contrast through intravenous route. FINDINGS: The ventricles and extraventricular CSF spaces are dilated consistent with cerebral atrophy. Nonspecific white matter changes seen. There is no midline shift, mass effect or herniation. No acute intracranial bleed is seen. Visualized portion of the paranasal sinuses are grossly within normal limits. IMPRESSION: 1. No acute intracranial bleed is seen. 2. Atrophy with white matter changes. Labs Reviewed?: Yes EKG Comment: EKG SINUS RHYTHM/HEART RATE 92/LEFT VENTRICULAR HYPERTROPHY ED Course ED Course Orders Procedure Category Date Status Time Cbc With Differential LAB 07/04/24 Complete 10:12 Troponin I High LAB 07/04/24 Complete Sensitivity 10:12 Urinalysis Profile LAB 07/04/24 Logged 10:12 12 Lead Ekg Tracing- EKG 07/04/24 Complete Technical 10:12 Basic Metabolic Panel LAB 07/04/24 Complete 10:12 Acetaminophen 500mg PHA 07/04/24 Complete Tab (Tylenol 500mg T 10:30 Famotidine 20mg Vial PHA 07/04/24 Complete (Pepcid 20mg Vial) 10:30 Lipase LAB 07/04/24 Complete 10:55 Arterial Blood Gas RT 07/04/24 Transmitted 12:30 Chest 1vw RAD 07/04/24 Resulted 12:38 Arterial Blood Gas LAB 07/04/24 Complete Arterial + 12:51 Albuterol 0.083% PHA 07/04/24 Complete 2.5mg/3ml (Proventil 13:00 Blood Cult CLEM 07/04/24 In Process 13:02 Lactic Acid LAB 07/04/24 Complete 13:02 Ceftriaxone 1g Vial PHA 07/04/24 Complete (Rocephine 1g Inj) 14:00 Azithromycin 500mg+Ns PHA 07/04/24 Complete 250ml (Azithromyci 14:00 Edm Admit Bridge Order ADM 07/04/24 Transmitted 13:52 Vital Signs(Adult CPOE 07/04/24 Transmitted Hospitalist) 14:11 Nurse To Enter Home CPOE 07/04/24 Transmitted Medication 14:11 Admit Orders ADM 07/04/24 Transmitted 14:11 Telemetry Monitoring CPOE 07/04/24 Transmitted 14:11 Gi Soft/[place] Diet DIET 07/04/24 Transmitted Dinner Albuterol 0.083% PHA 07/04/24 In Process 2.5mg/3ml (Proventil 14:30 Zosyn 3.375gm+Ns 50ml PHA 07/04/24 In Process (Zosyn 3.375gm+Ns 18:00 Ct Head/Brain W/O CT 07/04/24 Resulted Contrast 14:11 0.9%Nacl 1000ml (Ns PHA 07/04/24 In Process 1000ml) 14:30 Azithromycin 500mg+Ns PHA 07/05/24 In Process 250ml (Azithromyci 14:30 Respiratory Cult CLEM 07/04/24 Logged W/Gram Stain 14:11 *Nursing CPOE 07/04/24 Transmitted Communication: 14:11 Acetaminophen 500mg PHA 07/04/24 In Process Tab (Tylenol 500mg T 14:30 Nephrology Consult CONPHYS 07/04/24 Transmitted 14:11 *Nursing CPOE 07/04/24 Transmitted Communication: 14:18 Famotidine 20mg Vial PHA 07/05/24 In Process (Pepcid 20mg Vial) 09:00 Pulmonology Consult CONPHYS 07/04/24 Transmitted 15:[address] 07/04/24 Transmitted Order 15:31 *Nursing CPOE 07/04/24 Transmitted Communication: 16:09 Current Medications Medications (Trade) Dose Ordered Sig/Boris Route PRN Reason Start Time Stop Time Status Last Admin Dose Admin Acetaminophen (TYLenol 500MG TAB) 1,000 mg ONCE ONCE PO 07/04/24 10:30 07/04/24 10:31 DC Albuterol Sulfate (Proventil 0.083% 2.5mg/3ml) 2.5 mg ONCE ONCE IH 07/04/24 13:00 07/04/24 13:01 DC 07/04/24 13:15 Azithromycin 250 ml @ 250 mls/hr ONCE ONCE IVPB 07/04/24 14:00 07/04/24 14:59 DC 07/04/24 14:18 Ceftriaxone Sodium (ROCEphine 1G INJ) 1 gm ONCE ONCE IVPB 07/04/24 14:00 07/04/24 14:01 DC 07/04/24 14:18 Famotidine (Pepcid 20mg Vial) 20 mg ONCE ONCE IV 07/04/24 10:30 07/04/24 10:31 DC 07/04/24 11:31 Vital Signs Date Time Temp Pulse Resp B/P (MAP) Pulse Ox O2 Delivery O2 Flow Rate FiO2 07/04/24 15:22 94 18 N/Cannula Low lpm 2.0 28 07/04/24 14:12 98.8 88 22 120/66 89 Room Air* 0 07/04/24 13:16 90 18 07/04/24 12:30 94 22 115/50 89 Room Air* 0 07/04/24 11:10 94 18 99/42 94 Room Air* 0 07/04/24 10:12 100.6 97 18 101/47 94 Room Air 1330/PATIENT CURRENTLY SATURATING 90-93% ON2 L NASAL CANNULA. SHE HAS BILATERAL PNEUMONIA WE WILL BE GIVEN ROCEPHIN AND AZITHROMYCIN. SHE HAS BEEN GIVEN FLUIDS AND WE WILL BE ADMITTED TO [facility] BILATERAL PNEUMONIA AND HYPOXEMIA ON ABGS. 1350 SPOKE WITH , REVIEWED EKG LABS AND CHEST X-RAY AND INTERVENTIONS FOR HYPOXEMIA AND PNEUMONIA. HE AGREED TO ADMIT PATIENT. 1420/DR SHIN HERE AND SAID THAT WHEN HE EXAMINED PATIENT THAT SHE HAS GENERALIZED WEAKNESS HOWEVER SHE HAS HAD A HISTORY OF A BLEED IN THE PAST AND HE ORDERED A CT OF THE HEAD. HE SAID HE FELT LIKE THE WEAKNESS WAS MOST LIKELY DUE TO PNEUMONIA HOWEVER IF SHE HAD A BLEED OR ANY KIND A CENTRAL NERVOUS SYSTEM LESION, SHE WILL NEED TO BE TRANSFERRED TO A HIGHER LEVEL OF CARE. Medical Decision Making MDM MDM: DIFFERENTIAL DIAGNOSIS: WEAKNESS/DEHYDRATION/UTI/PNEUMONIA/BRONCHITIS/ACS/AMI/COPD EXACERBATION RATIONALE: TESTS CONSIDERED AND ORDERED SECONDARY TO SHARED DECISION MAKING INCLUDE: LABS, ECG AND RADIOLOGY PREVIOUS OUTSIDE RECORDS REVIEWED: OLD ER VISITS. RISK OF COMPLICATION AND/OR MORBIDITY OR MORTALITY OF PATIENT MANAGEMENT: MODERATE MEDICATIONS-PER MEDICATION RECONCILIATION NEED FOR HOSPITALIZATION: PATIENT DOES MEET CRITERIA FOR HOSPITALIZATION. PATIENT WILL NEED RESPIRATORY SUPPORT AND ANTIBIOTICS FOR BILATERAL PNEUMONIA, ACUTE KIDNEY INJURY NEED FOR EMERGENCY MAJOR/MINOR SURGERY: NO THERE ARE NO SOCIAL CONCERNS WITH THIS PATIENT. PRESCRIPTION DRUG MANAGEMENT PRESCRIPTIONS WILL INCLUDE SYMPTOMATIC CARE PATIENT'S PRIOR EXTERNAL MEDICAL RECORDS FROM OTHER ER VISITS WERE REVIEWED BY ME INDICATED. PRIOR TESTING AND RESULTS FROM PREVIOUS VISITS WERE REVIEWED. PRIOR TESTS WERE TAKEN INTO ACCOUNT WITH MEDICAL DECISION MAKING AND RESOURCE UTILIZATION, INDEPENDENT HISTORIAN/HISTORIANS WERE USED TO OBTAIN COMPLETE MEDICAL HISTORY. I INDEPENDENTLY INTERPRETED THE TEST THAT WERE PERFORMED, RESULTS WERE REVIEWED BY ME AND CONSIDERED FINDINGS ON RADIOLOGY IF ORDERED. MEDICAL MANAGEMENT AND EXAMINATION INTERPRETATION DISCUSSIONS WERE HAD BY ME WITH OTHER QUALIFIED HEALTHCARE PROFESSIONALS INDICATED FOR THE PATIENT'S CARE. DX & DISP Disposition: Inpatient Departure Impression: Primary Impression: Community acquired bilateral lower lobe pneumonia Additional Impressions: Hypoxemia, [id number] kidney injury, Hyperglycemia, Dehydration Critical Time: 30 minutes (Critical Care Procedure NoteAuthorized and Performed by: meTotal critical care time: Approximately 36 minutesDue to a high probability of clinically significant, life threatening deterioration, the patient required my highest level of preparedness to intervene emergently and I personally spent this critical care time directly and personally managing the patient. This critical care time included obtaining a history; examining the patient; pulse oximetry; ordering and review of studies; arranging urgent treatment with development of a management plan; evaluation of patient's response to treatment; frequent reassessment; and, discussions with other providers.This critical care time was performed to assess and manage the high probability of imminent, life-threatening deterioration that could result in multi-organ failure. It was exclusive of separately billable procedures and treating other patients and teaching time.Please see MDM section and the rest of the note for further information on patient assessment and treatment.) Condition: Stable Referrals: JESS ENGEL (PCP) Time of Disposition: 13:35 I have reviewed the case, and I agree with, Diagnosis and Plan I performed a substantive portion of the visit. I have reviewed and personally made and approve the management plan that is documented in the notes by myself with GLORIA/resident. I acknowledged full responsibility for the patient's management plan. BELEN GARCIA NP Jul 04, 2024 10:15 DUSTY NUÑEZ DO Jul 04, 2024 16:31
[2024-07-04] MEDS: acetaMINOPHEN 500 MG TABLET PO ONE (10:30)
--- NOTE | 2024-07-04 10:32 | EKG ---
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
[2024-07-04 11:08] LABS: CREATININE 1.4 mg/dL (0.5-1.0); POTASSIUM 4.1 mmol/L (3.5-5.1)
[2024-07-04 11:15] LABS: BASOPHILS # (AUTO) 0.03 K/uL (0.00-0.20); BASOPHILS % (AUTO) 0.2 % (0.0-5.0); EOSINOPHILS # (AUTO) 0.04 K/uL (0.00-0.70); EOSINOPHILS % (AUTO) 0.3 % (0.0-8.0); HEMATOCRIT 32.9 % (36-48); IMMATURE GRANULOCYTE ABSOLUTE 0.06 K/uL (0-1); LYMPHOCYTES # (AUTO) 0.5 K/uL (1.0-4.8); MEAN CORPUSCULAR HEMOGLOBIN 28.4 pg (27.0-33.0); MEAN CORPUSCULAR HGB CONC 33.1 g/dL (32.0-36.0); MEAN CORPUSCULAR VOLUME 85.7 fL (79-99); MONOCYTES # (AUTO) 0.8 K/uL (0.1-1.0); MONOCYTES % (AUTO) 5.2 % (3.0-13.0); NEUTROPHILS # (AUTO) 13.8 K/uL (1.8-7.7); NEUTROPHILS % (AUTO) 90.9 % (40.0-77.0); RED BLOOD CELL COUNT(AUTO) 3.84 MIL/uL (4.00-5.50); RED CELL DISTRIBUTION WIDTH 13.9 % (11.0-15.5); WHITE BLOOD COUNT (AUTO) 15.1 K/uL (4.8-10.8)
[2024-07-04] MEDS: FAMOTIDINE 20MG VIAL IV ONE (11:31)
[2024-07-04 12:03] LABS: PLATELET COUNT (AUTO) 130 K/uL (130-400)
[2024-07-04 12:52] LABS: ABG BASE EXCESS -0.2 mmol/L (-2.0-3.0); ABG HCO3 23.2 mmol/L (21.0-28.0); ABG OXYGEN SATURATION 90.7 % (94.0-98.0); ABG PCO2 34 mmHg (32-45); ABG PH 7.456 (7.350-7.450); CARBON MONOXIDE 1.1 % (0.5-1.5); HHb 9.2; VENT MODE, BG RA (ROOM AIR)
[2024-07-04] MEDS: ALBUTEROL 0.083% 2.5 MG/3 ML INH IH ONE (13:15)
[2024-07-04 13:16] VITALS: PULSE 90; RESP 18
--- NOTE | 2024-07-04 13:29 | HMCIMG ---
CHEST 1VW HISTORY: Cough COMPARISON: 02/29/2024 FINDINGS: A frontal projection of the chest was obtained. Bilateral pulmonary infiltrates are seen with right more than left. The heart is borderline enlarged. Degenerative changes are seen. No evidence of aortic calcification is seen. IMPRESSION: 1. Bilateral pulmonary infiltrates with right more than left.
--- NOTE | 2024-07-04 14:11 | NUR ---
TOOK OVER A PATIENT AT THIS TIME
[2024-07-04] MEDS: cefTRIAXone 1G VIAL IVPB ONE (14:18)
[2024-07-04] MEDS: AZITHROMYCIN 500MG+NS 250ML 250 ML IVPB ONE (14:18)
[2024-07-04] MEDS: 0.9%NACL 1000ML 1,000 ML IV SCH (14:30)
[2024-07-04] MEDS ORDERED: acetaMINOPHEN 500 MG TABLET PO PRN (14:30)
[2024-07-04 15:22] VITALS: PULSE 94; RESP 18; O2SAT 94
--- NOTE | 2024-07-04 15:31 | HP ---
[facility] HISTORY AND PHYSICAL Date of Service: Jul 04, 2024 Time of Service: 15:31 HISTORY OF PRESENT ILLNESS: 84-year-old female with past medical history of hiatal hernia, hypertension, hyperlipidemia, hypothyroidism, history of seizures, history of intracranial bleed status post embolization who presented to the hospital secondary to cough, generalized fatigue. Patient states her symptoms started today after she had episodes of vomiting. She has a history of hiatal hernia and felt she might have aspirated from the vomiting. She had previously seen a surgeon for the hiatal hernia and was scheduled for a surgical repair next week on . She currently denies any chest pain, shortness of breath, nausea, vomiting. She stated she was having fevers at home but denied any chills, arthralgia, myalgia. Denied any changes in her urination, hematemesis, melena, hematochezia. She was being given diuretic at home and felt she was urinating a lot. She felt her swelling in the lower extremities have improved. She sees Dr. Ayoub as outpatient Secondary to non improving symptoms patient thereafter came to the ED for further evaluation Labs in the ED were notable for white count of 15.1, hemoglobin was 10.9, platelet count was 130k, sodium was 139, potassium potassium was 4.1, creatinine was 1.4, troponin was negative x1, lactic acid Chest x-ray showed findings consistent with pneumonia bilaterally REVIEW OF SYSTEMS CONSTITUTIONAL: Denies fevers, chills, or night sweats. No unintentional weight loss reported. NEUROLOGICAL: Denies headache, amaurosis fugax, motor weakness, sensory deficit, vertigo/spinning sensation, gait abnormalities, or tremors. ENT: No hearing loss, otalgia, otorrhea, rhinitis, rhinorrhea, hoarseness, or sore throat. CARDIOVASCULAR: Denies any exertional angina, dyspnea on exertion, orthopnea, paroxysmal nocturnal dyspnea, palpitations, life-threatening arrhythmias, claudication. PULMONARY: Positive for cough, shortness of breath, sputum production GASTROINTESTINAL: Positive for nausea, vomiting. Denied any abdominal pain, diarrhea, constipation, melena, hematochezia, hematemesis GENITOURINARY: Denies frequency, urgency, nocturia, hematuria or incontinence (Storage/Irritative symptoms.) Low urinary stream, straining to void, urinary intermittency or hesitancy, splitting of the voiding stream, terminal dribbling. ENDOCRINOLOGIC: Denies polyuria, polydipsia, polyphagia or heat/cold intolerances. HEMATOLOGIC: Denies thrombophilia/previous clots, or coagulopathy/bleeding disorders. ONCOLOGIC: Denies personal history of malignancy. DERMATOLOGIC: Denies rashes or pruritus. PSYCHIATRIC: Denies any suicidal or homicidal ideation. Denies hallucinations. PAST MEDICAL HISTORY: [ ] PAST SURGICAL HISTORY: [ ] PAST SOCIAL HISTORY: [ ] FAMILY HISTORY: [ ] Coded Allergies: diphenhydramine (Unverified Allergy, Unknown, 06/09/19) meperidine (Unverified Allergy, Unknown, 06/09/19) PHYSICAL EXAM GENERAL APPEARANCE: The patient is awake, alert, and oriented, in no acute cardiopulmonary distress. NEUROLOGICAL: Cranial nerves II-XII grossly intact. Motor is 5/5 in bilateral upper and lower extremities proximal to distal. No sensory deficits. HEENT: Face is symmetric. Pupils are equal and reactive. Extraocular movements are intact. NECK: Supple. No JVD. No thyromegaly. No submental, submandibular, pre- /postauricular, occipital or supraclavicular lymphadenopathy. CHEST: Normal chest expansion. No Telemetry. LUNGS: Patient has rales preset bilaterally CARDIOVASCULAR: Regular. S1 and S2 normal. No appreciable rubs, murmurs or gallops. ABDOMEN: Soft, nontender, and nondistended. There is no rebound, voluntary guarding, or rigidity. : Deferred. No Borja. EXTREMITIES: Non-edematous and not cyanotic. No clubbing. Good capillary refill. SKIN: No skin breakdown. Vital Sign (Last 24 Hours) 07/04/24 07/04/24 14:12 15:22 Temp 98.8 Pulse 94 Resp 18 B/P (MAP) 120/66 Pulse Ox 89 O2 Delivery N/Cannula Low lpm O2 Flow Rate 2.0 FiO2 28 LABS: Laboratory: Test 07/04/24 14:17 07/04/24 12:51 07/04/24 10:55 Range/Units Lactic Acid Level 1.7 0.8-2.5 mmol/L Blood Gas Specimen Type Arterial Arterial Blood pH 7.456 H 7.350-7.450 Arterial Blood Partial Pressure CO2 34 32-45 mmHg Arterial Blood Partial Pressure O2 60.0 L 83.0-108.0 mmHg Arterial Blood HCO3 23.2 21.0-28.0 mmol/L Arterial Blood Oxygen Saturation 90.7 L 94.0-98.0 % Arterial Blood Base Excess -0.2 -2.0-3.0 mmol/L Hemoglobin (Blood Gas) 11.2 L 12.0-16.0 g/dL Sodium (Blood Gas) 137 136-145 MMOL/L Bedside Potassium (Blood Gas) 3.9 3.4-4.5 MMOL/L Bedside Chloride (Blood Gas) 104 98-107 MMOL/L Bedside Glucose (Blood Gas) 108 H 65-95 MG/DL Bedside Ionized Calcium (Blood Gas) 1.19 1.15-1.33 MMOL/L Bedside Lactic Acid (Blood Gas) 1.16 H 0.36-0.75 MMOL/L Blood Gas Temperature 37.0 35.5-37.0 CELSIUS Blood Gas Vent Mode RA ROOM AIR FiO2 21.0 % Blood Gas Specimen Comment RR DR NUÑEZ White Blood Count 15.1 H 4.8-10.8 K/uL Red Blood Count 3.84 L 4.00-5.50 MIL/uL Hemoglobin 10.9 L 12.0-16.0 g/dL Hematocrit 32.9 L 36-48 % Mean Corpuscular Volume 85.7 79-99 fL Mean Corpuscular Hemoglobin 28.4 27.0-33.0 pg Mean Corpuscular Hemoglobin Concent 33.1 32.0-36.0 g/dL Red Cell Distribution Width 13.9 11.0-15.5 % Platelet Count 130 130-400 K/uL Mean Platelet Volume 12.2 H 7.5-10.5 fL Immature Granulocyte % (Auto) 0.4 0-1 % Neutrophils (%) (Auto) 90.9 H 40.0-77.0 % Lymphocytes (%) (Auto) 3.0 L 21.0-51.0 % Monocytes (%) (Auto) 5.2 3.0-13.0 % Eosinophils (%) (Auto) 0.3 0.0-8.0 % Basophils (%) (Auto) 0.2 0.0-5.0 % Neutrophils # (Auto) 13.8 H 1.8-7.7 K/uL Lymphocytes # (Auto) 0.5 L 1.0-4.8 K/uL Monocytes # (Auto) 0.8 0.1-1.0 K/uL Eosinophils # (Auto) 0.04 0.00-0.70 K/uL Basophils # (Auto) 0.03 0.00-0.20 K/uL Absolute Immature Granulocyte (auto 0.06 0-1 K/uL Nucleated Red Blood Cells 0.0 0.0-0.19 % White Cell Morphology Comment See comments Sodium Level 139 136-145 mmol/L Potassium Level 4.1 3.5-5.1 mmol/L Chloride Level 106 101-111 mmol/L Carbon Dioxide Level 29 21-32 mmol/L Blood Urea Nitrogen 47 H 7-18 mg/dL Creatinine 1.4 H 0.5-1.0 mg/dL Glomerular Filtration Rate Calc 37 >90 mL/min Random Glucose 120 H 70-105 mg/dL Total Calcium 8.8 8.5-10.1 mg/dL Troponin I High Sensitivity 5 4-50 ng/L Lipase 20 16-77 U/L Current Medications Medications (Trade) Dose Ordered Sig/Boris Route PRN Reason Start Time Stop Time Status Last Admin Dose Admin Acetaminophen (TYLenol 500MG TAB) 500 mg Q6H PRN PO MILD PAIN (1-3) 07/04/24 14:30 08/03/24 14:29 Albuterol Sulfate (Proventil 0.083% 2.5mg/3ml) 2.5MG Q6H PRN IH SHORTNESS OF BREATH 07/04/24 14:30 08/03/24 14:29 Azithromycin 250 ml @ 250 mls/hr Q24H IVPB 07/05/24 14:30 07/15/24 14:29 Famotidine (Pepcid 20mg Vial) 20 mg DAILY IV 07/05/24 09:00 08/04/24 08:59 Piperacillin Sod/ Tazobactam Sod (Zosyn 3.375gm+NS 50ml) 3.375 gm Q8H IVPB 07/04/24 18:00 07/14/24 17:59 Sodium Chloride 1,000 ml @ 75 mls/hr [id number] IV 07/04/24 14:30 08/03/24 14:29 DIAGNOSTICS / RADIOLOGY: [ ] ASSESSMENT: Suspected aspiration pneumonia POA Hiatal hernia with symptomatic nausea vomiting being evaluated outpatient for surgery Dehydration Normocytic anemia GERD Acute kidney injury Hypertension Hyperlipidemia Hypothyroidism History of seizures History of intracranial bleed status post embolization UTI POA PLAN: - patient to be admitted to medical-surgical unit with telemetry -in reference to pneumonia. Patient will be started on Zosyn and we will continue on azithromycin. We will obtain a sputum sample. Patient will be on albuterol q.6 hours p.r.n.. We will request consultation pulmonology -patient will be started on NS for gentle hydration - CT head was ordered which showed no evidence of intracranial bleed. -in reference to VÍCTOR. Continue with IV fluids. Obtain urine sodium, urine creatinine. Obtain a renal ultrasound. We will request consultation with Nephrology. Hold patient's torsemide and telmisartan for now -continue with pantoprazole daily -continue toe Keppra -obtain a speech eval -further orders per hospitalization course. Advanced Care Planning Which of the following were discussed: Hospice care: Yes __ No _x_ Therapeutic options: Yes __ No __ Advance directives: Yes __ No __ Other discussions: Discussed with who?: patient (Patient, family or surrogates) Voluntary nature of this service was explained to the patient? Yes _x_ No __ Amount of time spent: 25 minutes DAXA Arora MD, MD Jul 04, 2024 15:31
--- NOTE | 2024-07-04 15:39 | NUR ---
CONSULTED WITH DR. FELIX FOR DX VÍCTOR
--- NOTE | 2024-07-04 16:06 | HMCIMG ---
CT HEAD/BRAIN W/O CONTRAST HISTORY: Generalized weakness COMPARISON: None TECHNIQUE: Multiple sequential axial images of the head were obtained from the base of the skull through vertex. Patient was not given contrast through intravenous route. FINDINGS: The ventricles and extraventricular CSF spaces are dilated consistent with cerebral atrophy. Nonspecific white matter changes seen. There is no midline shift, mass effect or herniation. No acute intracranial bleed is seen. Visualized portion of the paranasal sinuses are grossly within normal limits. IMPRESSION: 1. No acute intracranial bleed is seen. 2. Atrophy with white matter changes. CT was performed with one or more following dose reduction techniques: automated exposure control, adjustment of the mA and kv according to patient's size, or use of a iterative reconstruction technique.
[2024-07-04] MEDS ORDERED: FLUT16H (16:39)
[2024-07-04] MEDS ORDERED: LEVO25TA54 (16:39)
[2024-07-04] MEDS ORDERED: TORS10TA18 (16:39)
[2024-07-04] MEDS ORDERED: FAMO40TA7 (16:39)
[2024-07-04] MEDS ORDERED: SIMV-43 (16:39)
[2024-07-04] MEDS ORDERED: PREG150C47 (16:39)
[2024-07-04] MEDS ORDERED: OXYB10TA30 (16:39)
[2024-07-04] MEDS ORDERED: DOXA4TAB3 PO (16:39)
[2024-07-04] MEDS: SODIUM CHLORIDE 3% FOR INHALATION 4 ML/AMP VIAL.NEB IH ONE (16:43)
[2024-07-04] MEDS ORDERED: FLUT1BLS IH (16:46)
[2024-07-04] MEDS ORDERED: RALO60 PO (16:46)
[2024-07-04 16:47] VITALS: BP 112/42; PULSE 87; RESP 18; TEMP 99
[2024-07-04] MEDS ORDERED: hydrALAZine 20MG/ML VIAL IV PRN (18:00)
[2024-07-04] MEDS: ZOSYN 3.375GM +NS 50ML IVPB SCH (18:19)
[2024-07-04] MEDS ORDERED: ondanSETRON 4MG INJ IVP PRN (19:00)
[2024-07-04 19:19] VITALS: PULSE 91; RESP 18; O2SAT 96
[2024-07-04] MEDS: ALBUTEROL 0.083% 2.5 MG/3 ML INH IH PRN (19:19)
[2024-07-04 20:03] LABS: APPEARANCE,URINE CLOUDY (CLEAR); BILIRUBIN,URINE NEGATIVE (NEGATIVE); COLOR,URINE LIGHT-YELLOW (YELLOW); GLUCOSE, URINE (UA) NEGATIVE (NEGATIVE); KETONES,URINE NEGATIVE (NEGATIVE); LEUKOCYTE ESTERASE ,URINE 500 Leu/uL (NEGATIVE); NITRATE,URINE NEGATIVE (NEGATIVE); PH,URINE 5.5 (5.0-8.0); PROTEIN,URINE 10 mg/dL (NEGATIVE); UROBILINOGEN,URINE 0.2 mg/dL (0.2-1.0)
[2024-07-04 20:07] LABS: CREATININE,URINE RANDOM 120.35 mg/dL (30-135); SODIUM,URINE RANDOM 23 mmol/l (40-220)
[2024-07-04 20:44] LABS: ADD UA MICROSCOPIC YES
[2024-07-04] MEDS: DOXAZOSIN MESYLATE 1 MG PO SCH (21:00)
[2024-07-04] MEDS: leveTIRACEtam 500 MG TABLET PO SCH (21:06)
[2024-07-04] MEDS: simVASTatin 20 MG TABLET PO SCH (21:06)
[2024-07-04] MEDS: metOPROLol sucCINATE 50 MG TAB.SR.24H PO SCH (21:07)
[2024-07-04] MEDS: oxyBUTYnin 5 MG TAB.SR.24H PO SCH (21:11)
[2024-07-04] MEDS: pregABALin 75 MG CAPSULE PO SCH (21:11)
[2024-07-04 21:43] LABS: MUCUS,URINE RARE LPF (None Seen); NON-SQUAMOUS EPITHELIAL CELL 2 /HPF (0-2); SQUAMOUS EPITHELIAL CELL,UR RARE /HPF (0-2); WBC CLUMP MOD /HPF (0-1); WBC,URINE TNTC /HPF (0-1)
[2024-07-04 23:07] VITALS: PULSE 87; RESP 20; O2SAT 95
[2024-07-05] MEDS: levoTHYROxine 25 MCG TABLET PO SCH (06:36)
[2024-07-05 06:46] VITALS: PULSE 81; RESP 20; O2SAT 93
[2024-07-05 07:54] LABS: BASOPHILS # (AUTO) 0.03 K/uL (0.00-0.20); BASOPHILS % (AUTO) 0.4 % (0.0-5.0); EOSINOPHILS # (AUTO) 0.25 K/uL (0.00-0.70); EOSINOPHILS % (AUTO) 3.1 % (0.0-8.0); IMMATURE GRANULOCYTE ABSOLUTE 0.03 K/uL (0-1); LYMPHOCYTES # (AUTO) 0.9 K/uL (1.0-4.8); MEAN CORPUSCULAR HEMOGLOBIN 27.8 pg (27.0-33.0); MEAN CORPUSCULAR HGB CONC 31.6 g/dL (32.0-36.0); MEAN CORPUSCULAR VOLUME 88.1 fL (79-99); MONOCYTES # (AUTO) 0.6 K/uL (0.1-1.0); MONOCYTES % (AUTO) 7.2 % (3.0-13.0); NEUTROPHILS # (AUTO) 6.4 K/uL (1.8-7.7); NEUTROPHILS % (AUTO) 77.9 % (40.0-77.0); PLATELET COUNT (AUTO) 80 K/uL (130-400); RED BLOOD CELL COUNT(AUTO) 3.52 MIL/uL (4.00-5.50); RED CELL DISTRIBUTION WIDTH 14.2 % (11.0-15.5); WHITE BLOOD COUNT (AUTO) 8.2 K/uL (4.8-10.8)
[2024-07-05 08:03] LABS: CREATININE 1.3 mg/dL (0.5-1.0); POTASSIUM 3.4 mmol/L (3.5-5.1)
[2024-07-05] MEDS: leveTIRACEtam 250 MG TABLET PO SCH (08:28)
[2024-07-05] MEDS: fluTICasone/viLANTerol 1 EACH BLST.W.DEV IH SCH (08:28)
[2024-07-05] MEDS: PANTOPrazole 40 MG TAB DR PO SCH (08:29)
[2024-07-05] MEDS: RALOXIFENE HCL 60 MG TABLET PO SCH (08:29)
--- NOTE | 2024-07-05 08:30 | PN ---
[facility] PROGRESS NOTE Date of Service: Jul 05, 2024 Time of Service: 08:27 SUBJECTIVE: [ ] 84-year-old female with past medical history of hiatal hernia, hypertension, hyperlipidemia, hypothyroidism, history of seizures, history of intracranial bleed status post embolization who presented to the hospital secondary to cough, generalized fatigue. Patient states her symptoms started today after she had episodes of vomiting. She has a history of hiatal hernia and felt she might have aspirated from the vomiting. She had previously seen a surgeon for the hiatal hernia and was scheduled for a surgical repair next week on . Patient remains in ED holding. Patient is lying in bed she is currently on room air. Breath sounds crackles lower bases. She continues with empiric antibiotics. Tolerating. Daughter at bedside answer all questions appropriately. REVIEW OF SYSTEMS CONSTITUTIONAL: Denies fevers, chills, or night sweats. No unintentional weight loss reported. NEUROLOGICAL: Denies headache, amaurosis fugax, motor weakness, sensory deficit, vertigo/spinning sensation, gait abnormalities, or tremors. ENT: No hearing loss, otalgia, otorrhea, rhinitis, rhinorrhea, hoarseness, or sore throat. CARDIOVASCULAR: Denies any exertional angina, dyspnea on exertion, orthopnea, paroxysmal nocturnal dyspnea, palpitations, life-threatening arrhythmias, claudication. PULMONARY: Positive for cough, shortness of breath, sputum production GASTROINTESTINAL: Positive for nausea, vomiting. Denied any abdominal pain, diarrhea, constipation, melena, hematochezia, hematemesis GENITOURINARY: Denies frequency, urgency, nocturia, hematuria or incontinence (Storage/Irritative symptoms.) Low urinary stream, straining to void, urinary intermittency or hesitancy, splitting of the voiding stream, terminal dribbling. ENDOCRINOLOGIC: Denies polyuria, polydipsia, polyphagia or heat/cold intolerances. HEMATOLOGIC: Denies thrombophilia/previous clots, or coagulopathy/bleeding disorders. ONCOLOGIC: Denies personal history of malignancy. DERMATOLOGIC: Denies rashes or pruritus. PSYCHIATRIC: Denies any suicidal or homicidal ideation. Denies hallucinations. PHYSICAL EXAM GENERAL APPEARANCE: The patient is awake, alert, and oriented, in no acute cardiopulmonary distress. NEUROLOGICAL: Cranial nerves II-XII grossly intact. Motor is 5/5 in bilateral upper and lower extremities proximal to distal. No sensory deficits. HEENT: Face is symmetric. Pupils are equal and reactive. Extraocular movements are intact. NECK: Supple. No JVD. No thyromegaly. No submental, submandibular, pre- /postauricular, occipital or supraclavicular lymphadenopathy. CHEST: Normal chest expansion. No Telemetry. LUNGS: Patient has rales preset bilaterally CARDIOVASCULAR: Regular. S1 and S2 normal. No appreciable rubs, murmurs or g allops. ABDOMEN: Soft, nontender, and nondistended. There is no rebound, voluntary gua rding, or rigidity. : Deferred. No Borja. EXTREMITIES: Non-edematous and not cyanotic. No clubbing. Good capillary refill. SKIN: No skin breakdown. Vital Signs (last 8hr) Date Time Temp Pulse Resp B/P (MAP) Pulse Ox O2 Delivery O2 Flow Rate FiO2 07/05/24 06:53 82 20 121/59 95 Room Air* 0 21 07/05/24 06:46 81 20 N/A Room Air 21 07/05/24 06:46 81 20 07/05/24 03:08 83 20 122/55 95 Room Air* 0 21 LABS: Laboratory: Test 07/05/24 07:27 07/04/24 19:47 07/04/24 14:17 07/04/24 12:51 Range/Units White Blood Count 8.2 # 4.8-10.8 K/uL Red Blood Count 3.52 L 4.00-5.50 MIL/uL Hemoglobin 9.8 L 12.0-16.0 g/dL Hematocrit 31.0 L 36-48 % Mean Corpuscular Volume 88.1 79-99 fL Mean Corpuscular Hemoglobin 27.8 27.0-33.0 pg Mean Corpuscular Hemoglobin Concent 31.6 L 32.0-36.0 g/dL Red Cell Distribution Width 14.2 11.0-15.5 % Platelet Count 80 #L 130-400 K/uL Mean Platelet Volume 12.2 H 7.5-10.5 fL Immature Granulocyte % (Auto) 0.4 0-1 % Neutrophils (%) (Auto) 77.9 H 40.0-77.0 % Lymphocytes (%) (Auto) 11.0 L 21.0-51.0 % Monocytes (%) (Auto) 7.2 3.0-13.0 % Eosinophils (%) (Auto) 3.1 0.0-8.0 % Basophils (%) (Auto) 0.4 0.0-5.0 % Neutrophils # (Auto) 6.4 1.8-7.7 K/uL Lymphocytes # (Auto) 0.9 L 1.0-4.8 K/uL Monocytes # (Auto) 0.6 0.1-1.0 K/uL Eosinophils # (Auto) 0.25 0.00-0.70 K/uL Basophils # (Auto) 0.03 0.00-0.20 K/uL Absolute Immature Granulocyte (auto 0.03 0-1 K/uL Nucleated Red Blood Cells 0.0 0.0-0.19 % Sodium Level 139 136-145 mmol/L Potassium Level 3.4 L 3.5-5.1 mmol/L Chloride Level 103 101-111 mmol/L Carbon Dioxide Level 29 21-32 mmol/L Blood Urea Nitrogen 36 H 7-18 mg/dL Creatinine 1.3 H 0.5-1.0 mg/dL Glomerular Filtration Rate Calc 41 >90 mL/min Random Glucose 104 70-105 mg/dL Total Calcium 8.0 L 8.5-10.1 mg/dL Urine Color LIGHT-YELLOW YELLOW Urine Appearance CLOUDY H CLEAR Urine pH 5.5 5.0-8.0 Urine Specific [place] 1.020 1.001-1.031 Urine Protein 10 H NEGATIVE mg/dL Urine Glucose (UA) NEGATIVE NEGATIVE mg/dL Urine Ketones NEGATIVE NEGATIVE mg/dL Urine Occult Blood +- (TRACE) H NEGATIVE Urine Nitrate NEGATIVE NEGATIVE Urine Bilirubin NEGATIVE NEGATIVE mg/dL Urine Urobilinogen 0.2 0.2-1.0 mg/dL Urine Leukocyte Esterase 500 H NEGATIVE Joo/uL Urine RBC 2-5 H 0-1 /HPF Urine WBC TNTC H 0-1 /HPF Urine WBC Clumps (Auto) MOD 0-1 /HPF Urine Squamous Epithelial Cells RARE 0-2 /HPF Urine Non-Squamous Epithelial Cells 2 0-2 /HPF Urine Bacteria None None Seen /HPF Urine Random Creatinine 120.35 30-135 mg/dL Urine Random Sodium 23 L 40-220 mmol/l Lactic Acid Level 1.7 0.8-2.5 mmol/L Blood Gas Specimen Type Arterial Arterial Blood pH 7.456 H 7.350-7.450 Arterial Blood Partial Pressure CO2 34 32-45 mmHg Arterial Blood Partial Pressure O2 60.0 L 83.0-108.0 mmHg Arterial Blood HCO3 23.2 21.0-28.0 mmol/L Arterial Blood Oxygen Saturation 90.7 L 94.0-98.0 % Arterial Blood Base Excess -0.2 -2.0-3.0 mmol/L Hemoglobin (Blood Gas) 11.2 L 12.0-16.0 g/dL Sodium (Blood Gas) 137 136-145 MMOL/L Bedside Potassium (Blood Gas) 3.9 3.4-4.5 MMOL/L Bedside Chloride (Blood Gas) 104 98-107 MMOL/L Bedside Glucose (Blood Gas) 108 H 65-95 MG/DL Bedside Ionized Calcium (Blood Gas) 1.19 1.15-1.33 MMOL/L Bedside Lactic Acid (Blood Gas) 1.16 H 0.36-0.75 MMOL/L Blood Gas Temperature 37.0 35.5-37.0 CELSIUS Blood Gas Vent Mode RA ROOM AIR FiO2 21.0 % Blood Gas Specimen Comment RR DR NUÑEZ Test 07/04/24 10:55 Range/Units White Cell Morphology Comment See comments Troponin I High Sensitivity 5 4-50 ng/L Lipase 20 16-77 U/L Current Medications Medications (Trade) Dose Ordered Sig/Boris Route PRN Reason Start Time Stop Time Status Last Admin Dose Admin Acetaminophen (TYLenol 500MG TAB) 500 mg Q6H PRN PO MILD PAIN (1-3) 07/04/24 14:30 08/03/24 14:29 Albuterol Sulfate (Proventil 0.083% 2.5mg/3ml) 2.5MG Q6H PRN IH SHORTNESS OF BREATH 07/04/24 14:30 08/03/24 14:29 07/05/24 06:46 2.5 MG Azithromycin 250 ml @ 250 mls/hr Q24H IVPB 07/05/24 14:30 07/15/24 14:29 Famotidine (Pepcid 20mg Vial) 20 mg DAILY IV 07/05/24 09:00 07/04/24 18:34 DC Fluticasone/ Vilanterol (BrEO ELLiptA 200-25 MCG INH) 1 each DAILY IH 07/05/24 09:00 08/04/24 08:59 Home Med (Home Medication) (Doxazosin Mesylate 1MG TAB) BID PO 07/04/24 21:00 08/03/24 20:59 Hydralazine HCl (APRESOLine 20MG INJ) 10 mg Q6H PRN IV ADMINISTER FOR SBP > 180 07/04/24 18:00 08/03/24 17:59 Levetiracetam (kepPRA 250 MG TABLET) 250 mg DAILY PO 07/05/24 09:00 08/04/24 08:59 Levetiracetam (kepPRA 500 MG TABLET) 500 mg HS PO 07/04/24 21:00 08/03/24 20:59 07/04/24 21:06 500 MG Levothyroxine Sodium (SYNTHroid 25MCG TAB) 25 mcg SYN PO 07/05/24 06:30 08/04/24 06:29 07/05/24 06:36 25 MCG Metoprolol Succinate (TopROL XL) 100 mg BID PO 07/04/24 21:00 08/03/24 20:59 07/04/24 21:07 100 MG Ondansetron HCl (zoFRAN 4MG INJ) 4 mg Q6H PRN IVP NAUSEA/VOMITING 07/04/24 19:00 08/03/24 18:59 Oxybutynin Chloride (ditROPAN XL) 10 mg HS PO 07/04/24 21:00 08/03/24 20:59 07/04/24 21:11 10 MG Pantoprazole Sodium (PROTonix 40MG TAB) 40 mg DAILY PO 07/05/24 09:00 08/04/24 08:59 Piperacillin Sod/ Tazobactam Sod (Zosyn 3.375gm+NS 50ml) 3.375 gm Q8H IVPB 07/04/24 18:00 07/14/24 17:59 07/05/24 02:27 3.375 GM Pregabalin ([id number]) 150 mg HS PO 07/04/24 21:00 08/03/24 20:59 07/04/24 21:11 150 MG Raloxifene HCl (Evista) 60 mg DAILY PO 07/05/24 09:00 08/04/24 08:59 Simvastatin (zoCOR) 20 mg HS PO 07/04/24 21:00 08/03/24 20:59 07/04/24 21:06 20 MG Sodium Chloride 1,000 ml @ 75 mls/hr [id number] IV 07/04/24 14:30 08/03/24 14:29 07/05/24 04:15 75 MLS/HR DIAGNOSTICS / RADIOLOGY: [ ] ASSESSMENT: Suspected aspiration pneumonia POA Hiatal hernia with symptomatic nausea vomiting being evaluated outpatient for surgery Dehydration Normocytic anemia GERD Acute kidney injury Hypertension Hyperlipidemia Hypothyroidism History of seizures History of intracranial bleed status post embolization PLAN: Admit: Medical-surgical with tele remains ED holding 13 condition: Guarded Status: Full code IVF: Gentle hydration normal saline Consultants receiving coordinator's, circuit walker's Antibiotics: Azithromycin IV and Zosyn Test: Sputum cultures in process Oxygen supplement to keep O2 sats above 92%. Bronchodilators Aspiration precautions head of the bed at 45 at all time Speech to eval we will follow recommendations Labs cbc, cmp, mag+ Replace electrolytes as needed as per protocol to keep potassium above 4.0 magn esium 2.0. Seizures precautions continue Keppra Pain management: Supportive measures: DVT ppx, GI ppx all questions answered time spent: > 35 min Supervising MD: Dr. Oropeza c/d ATTESTATION BY PHYSICIAN I have seen and examined the patient. I reviewed the documentation, medical decision making, and treatment plan as noted by the mid-level provider above. I agree with the findings and plan of care. DILIP OROPEZA MD, ELIZABETH NP Jul 05, 2024 08:30
[2024-07-05] MEDS ORDERED: FAMOTIDINE 20MG VIAL IV SCH (09:00)
--- NOTE | 2024-07-05 11:09 | HMCIMG ---
ULTRASOUND RENAL COMPLETE INDICATION: Assess kidney and bladder; No other relevant information related to this study was provided in patient's history by the ordering service. TECHNIQUE: Routine ultrasound of the kidneys and urinary bladder with grayscale and color Doppler imaging was performed in real-time, and subsequently made available for review. COMPARISON: 04/09/2024 CT abdomen and pelvis. FINDINGS: The right kidney measures 9.9 x 5.5 x 4.6 cm. No abnormal mass demonstrated. No evidence for hydronephrosis or shadowing stone. A few simple cysts scattered throughout the right kidney, largest of which measures up to 1.0 cm. The left kidney measures 9.2 x 4.9 x 4.0 cm. No abnormal mass demonstrated. No evidence for hydronephrosis or shadowing stone. Urinary bladder is nearly empty. No free fluid demonstrated. IMPRESSION: No evidence for hydronephrosis or nephrolithiasis.
[2024-07-05] MEDS: AZITHROMYCIN 500MG+NS 250ML 250 ML IVPB SCH (15:30)
[2024-07-05 16:29] VITALS: PULSE 91; RESP 24
[2024-07-05 16:30] VITALS: PULSE 91; RESP 24; O2SAT 98
--- NOTE | 2024-07-05 16:48 | CONS ---
[facility] CONSULTATION NOTE Date Patient Seen: Jul 05, 2024 Time of Visit: 16:45 Supervising Physician: Dr. Nick Low Reason for Consultation: Aspiration Pneumonia Primary Care Physician: [ ] Outpatient Specialists: [ ] Inpatient Consults: [ ] PROBLEM LIST: Suspected aspiration pneumonia POA Hiatal hernia with symptomatic nausea vomiting being evaluated outpatient for surgery Dehydration Normocytic anemia GERD Acute kidney injury Hypertension Hyperlipidemia Hypothyroidism History of seizures History of intracranial bleed status post embolization UTI POA HPI: Patient is an 84-year-old female with a past medical history significant for hypertension, hyperlipidemia, as well as a moderately sized hiatal hernia, patient was admitted by primary team suspicion for aspiration pneumonia dehydration and cystitis. Patient's white count on admission was 15.1, down to 8.2 today she currently continues on azithromycin and Zosyn. In conversation patient states that she is constantly had GERD which results in chest pain and shortness of breath, states that she has been told she needs to sleep with the head of her bed elevated however daughter endorses that the patient usually sleeps lying flat. Chest x-ray at this time endorses right infiltrates, patient on room air however she does sound short of breath at this time, advising nursing staff to continue with supplemental O2. Patient continues on nebulizer treatments. We will also order fluid strep swabs. Patient states that she is scheduled to have surgery later this week regarding her hiatal hernia. This is likely the etiology of her recurrent aspiration. Patient to continue on the current treatment plan for the time being. PAST MEDICAL HX: see above PAST SURGICAL HX: noncontributory SOCIAL HISTORY: No tobacco, ETOH, or illicit drug use Coded Allergies: diphenhydramine (Unverified Allergy, Unknown, 06/09/19) meperidine (Unverified Allergy, Unknown, 06/09/19) REVIEW OF SYSTEMS: 12 point ROS reviewed with patient. Pertinent positives mentioned above. Otherwise negative. PHYSICAL EXAM: GENERAL: alert, weak, awake oriented x 3 HEENT: EOMI, Sclera non icteric, moist mucosa NECK: Supple, no JVD, trachea midline LUNGS: Clear breath sounds bilaterally. No wheezes HEART: Regular rate and rhythm. Normal S1 and S2, without murmurs ABD: Abdomen soft, nontender. Bowel sounds present EXT: No clubbing cyanosis or edema NEURO: Alert and oriented to person, follows commands Vital Signs (last 8hr) Date Time Temp Pulse Resp B/P (MAP) Pulse Ox O2 Delivery O2 Flow Rate FiO2 07/05/24 16:30 91 24 N/A Room Air 2.0 07/05/24 16:29 91 24 07/05/24 16:24 98.2 84 16 154/65 99 Nasal Cannula* 2.0 N/A 07/05/24 12:00 97.9 87 16 118/54 94 Room Air* 0 21 LABS: Hematology Labs: Test 07/05/24 07:27 07/04/24 10:55 Range/Units White Blood Count 8.2 # 4.8-10.8 K/uL Red Blood Count 3.52 L 4.00-5.50 MIL/uL Hemoglobin 9.8 L 12.0-16.0 g/dL Hematocrit 31.0 L 36-48 % Mean Corpuscular Volume 88.1 79-99 fL Mean Corpuscular Hemoglobin 27.8 27.0-33.0 pg Mean Corpuscular Hemoglobin Concent 31.6 L 32.0-36.0 g/dL Red Cell Distribution Width 14.2 11.0-15.5 % Platelet Count 80 #L 130-400 K/uL Mean Platelet Volume 12.2 H 7.5-10.5 fL Immature Granulocyte % (Auto) 0.4 0-1 % Neutrophils (%) (Auto) 77.9 H 40.0-77.0 % Lymphocytes (%) (Auto) 11.0 L 21.0-51.0 % Monocytes (%) (Auto) 7.2 3.0-13.0 % Eosinophils (%) (Auto) 3.1 0.0-8.0 % Basophils (%) (Auto) 0.4 0.0-5.0 % Neutrophils # (Auto) 6.4 1.8-7.7 K/uL Lymphocytes # (Auto) 0.9 L 1.0-4.8 K/uL Monocytes # (Auto) 0.6 0.1-1.0 K/uL Eosinophils # (Auto) 0.25 0.00-0.70 K/uL Basophils # (Auto) 0.03 0.00-0.20 K/uL Absolute Immature Granulocyte (auto 0.03 0-1 K/uL Nucleated Red Blood Cells 0.0 0.0-0.19 % White Cell Morphology Comment See comments Chemistry Labs: Test 07/05/24 07:27 07/04/24 14:17 07/04/24 10:55 Range/Units Sodium Level 139 136-145 mmol/L Potassium Level 3.4 L 3.5-5.1 mmol/L Chloride Level 103 101-111 mmol/L Carbon Dioxide Level 29 21-32 mmol/L Blood Urea Nitrogen 36 H 7-18 mg/dL Creatinine 1.3 H 0.5-1.0 mg/dL Glomerular Filtration Rate Calc 41 >90 mL/min Random Glucose 104 70-105 mg/dL Total Calcium 8.0 L 8.5-10.1 mg/dL Lactic Acid Level 1.7 0.8-2.5 mmol/L Troponin I High Sensitivity 5 4-50 ng/L Lipase 20 16-77 U/L DIAGNOSTICS / RADIOLOGY RESULTS: [ ] PLAN NEURO: Minimize central acting medications as possible. Maintain fall precautions, adequate lighting during the day PULMONARY: Supplemental 02 as needed. Maintain aspiration precautions at all times CARDIOVASCULAR: Follow hemodynamics. Vital signs per facility protocol GI & NUTRITION: Continue with nutritional support. Continue stool softeners and laxatives as needed. KIDNEYS & ELECTROLYTES: Strict monitoring of intake, output and overall fluid balance. Avoid nephrotoxic medications to the extent possible. Medications to be dosed according to renal function. Monitor electrolytes and replace as needed ENDOCRINE: Maintain blood glucose between 100-180 at all times. Hypoglycemia protocol in place INFECTIOUS DISEASE: Trend temperature, WBC and procalcitonin level Follow cultures, deescalate antibiotics as soon as possible. Panculture if new onset fever ONCOLOGY/HEMATOLOGY/COAGULATION: Monitor for s/s of bleeding Monitor hemoglobin, coagulation studies as needed SKIN: Pressure ulcer prevention per facility protocol Specialty mattress ORTHO/REHAB: Continue PT/OT Prophylaxis: Continue GI and DVT prophylaxis Code Status: Full Resuscitation Disposition: TBD Other: Total patient care time exceeds 35 minutes excluding all procedures. DOMINIQUE BLANC Jul 05, 2024 16:48
[2024-07-05 19:14] VITALS: PULSE 101; RESP 18; O2SAT 98
[2024-07-05 19:19] LABS: RAPID GROUP A STREP negative (NEGATIVE)
[2024-07-05 19:28] LABS: INFLUENZA TYPE A Negative For Type A (NEGATIVE); INFLUENZA TYPE B Negative For Type B (NEGATIVE)
--- NOTE | 2024-07-05 19:53 | CONS ---
REFERRING PHYSICIAN: Braulio Lopez MD REASON FOR CONSULTATION: Renal failure. HISTORY OF PRESENT ILLNESS: An 84-year-old female with a history of hypertension, as well as thyroid disease. The patient with previous history of CVA. She presented to the hospital with failure to thrive. The patient has been having poor oral intake and generalized fatigue. The patient does have a history of hiatal hernia and had been scheduled for possible surgery. In the emergency room, the patient was found to have significant renal dysfunction with an elevated BUN and creatinine. The patient also with significant pyuria and was started on IV antibiotics, and she is being seen as a followup visit for all of the above. PAST MEDICAL HISTORY: Hypertension, hypercholesterolemia, thyroid disease, seizures. SOCIAL HISTORY: She lives independently. There is no alcohol or tobacco use. FAMILY HISTORY: There is no renal disease in the family. ALLERGIES: SHE HAS AN ALLERGY TO BENADRYL. MEDICATIONS: All noted. REVIEW OF SYSTEMS: GENERAL: She is feeling improved overnight. HEENT: No change in vision. No change in hearing. CARDIOVASCULAR: There is no current chest pain or palpitations. PULMONARY: There is no shortness of breath. GASTROINTESTINAL: The patient has been started on a diet. MUSCULOSKELETAL: Complains of weakness. NEUROLOGIC: No seizures or focal deficits. PSYCHIATRIC: No history of hallucinations or psychosis. ENDOCRINE: She has a history of thyroid disease. PHYSICAL EXAMINATION: VITAL SIGNS: Blood pressure 121/59, pulse 80s and afebrile. GENERAL: Chronically ill female, elderly, lying in bed on the medical floor. HEENT: Head is atraumatic. Pupils equal, roving to light. Oropharynx is without exudate. Nares clear. NECK: There is no JVP. There is no thyromegaly, no mass. CARDIOVASCULAR: Regular. There is no S3, S4 gallop. LUNGS: Coarse with equal thoracic movement. ABDOMEN: Soft, nondistended, nontender. EXTREMITIES: Reveal no clubbing, no cyanosis. NEUROLOGICAL: She is awake. She is alert. She is oriented. LABORATORY DATA: Urinalysis does reveal positive leukocyte esterase, urine sodium is 23. Sodium 139, potassium 3.4, BUN 36, creatinine is 1.3. Hemoglobin 9.8, hematocrit 31, white blood cell count 8.2. IMPRESSION: * Acute on chronic renal failure. * Volume depletion. * Hypertension. * Anemia. PLAN: The patient is feeling improved overnight with the IV hydration and antibiotics. Cultures are all pending. The patient does have significant anemia. We will obtain iron levels in the a.m. and we will continue to follow the patient closely. The patient's blood pressure is under adequate control and we will follow while in the hospital. The patient's potassium has been aggressively repleted and we will follow while in the hospital. TID: [id number] RECEIPT: [id number]
[2024-07-05 23:55] VITALS: BP 122/69; PULSE 99; RESP 19; TEMP 98.1
[2024-07-06] VITALS (14 sets, daily range): BP systolic 127–156; BP diastolic 51–79; PULSE 72–94; RESP 17–20; TEMP 97.3–98.7; O2SAT 89–98
[2024-07-06 05:57] LABS: BASOPHILS # (AUTO) 0.04 K/uL (0.00-0.20); BASOPHILS % (AUTO) 0.6 % (0.0-5.0); EOSINOPHILS # (AUTO) 0.37 K/uL (0.00-0.70); EOSINOPHILS % (AUTO) 5.3 % (0.0-8.0); HEMATOCRIT 29.4 % (36-48); IMMATURE GRANULOCYTE ABSOLUTE 0.03 K/uL (0-1); LYMPHOCYTES # (AUTO) 0.7 K/uL (1.0-4.8); LYMPHOCYTES % (AUTO) 9.8 % (21.0-51.0); MEAN CORPUSCULAR HEMOGLOBIN 28.7 pg (27.0-33.0); MEAN CORPUSCULAR HGB CONC 32.3 g/dL (32.0-36.0); MEAN CORPUSCULAR VOLUME 88.8 fL (79-99); MONOCYTES # (AUTO) 0.7 K/uL (0.1-1.0); MONOCYTES % (AUTO) 9.9 % (3.0-13.0); NEUTROPHILS # (AUTO) 5.2 K/uL (1.8-7.7); PLATELET COUNT (AUTO) 134 K/uL (130-400); RED BLOOD CELL COUNT(AUTO) 3.31 MIL/uL (4.00-5.50); RED CELL DISTRIBUTION WIDTH 13.9 % (11.0-15.5)
[2024-07-06 06:11] LABS: ALBUMIN 1.9 g/dL (3.5-5.0); BILIRUBIN,TOTAL 0.3 mg/dL (0.2-1.0); CREATININE 0.9 mg/dL (0.5-1.0); MAGNESIUM 1.8 mg/dL (1.80-2.40); POTASSIUM 3.8 mmol/L (3.5-5.1); TOTAL PROTEIN, SERUM 7.1 g/dL (6.0-8.3)
[2024-07-06 06:16] LABS: % IRON SATURATION 8.2 % (22-44)
[2024-07-06] MEDS: fluTICasone/viLANTerol 1 EACH BLST.W.DEV IH SCH (09:16)
--- NOTE | 2024-07-06 09:52 | PN ---
[facility] PROGRESS NOTE Date of Service: Jul 06, 2024 Time of Service: 09:51 SUBJECTIVE: [ ] 84-year-old female with past medical history of hiatal hernia, hypertension, hyperlipidemia, hypothyroidism, history of seizures, history of intracranial bleed status post embolization who presented to the hospital secondary to cough, generalized fatigue. Patient states her symptoms started today after she had episodes of vomiting. She has a history of hiatal hernia and felt she might have aspirated from the vomiting. She had previously seen a surgeon for the hiatal hernia and was scheduled for a surgical repair next week on . Patient remains in ED holding. Patient is lying in bed she is currently on room air. Breath sounds crackles lower bases. She continues with empiric antibiotics. Tolerating. Daughter at bedside answer all questions appropriately. 07/06/24 patient is lying in bed head of the bed 45 unable to lay flat. Oxygen supplemental at 2 L. Machine Joint Cutter's following REVIEW OF SYSTEMS CONSTITUTIONAL: Denies fevers, chills, or night sweats. No unintentional weight loss reported. NEUROLOGICAL: Denies headache, amaurosis fugax, motor weakness, sensory deficit, vertigo/spinning sensation, gait abnormalities, or tremors. ENT: No hearing loss, otalgia, otorrhea, rhinitis, rhinorrhea, hoarseness, or sore throat. CARDIOVASCULAR: Denies any exertional angina, dyspnea on exertion, orthopnea, paroxysmal nocturnal dyspnea, palpitations, life-threatening arrhythmias, claudication. PULMONARY: Positive for cough, shortness of breath, sputum production GASTROINTESTINAL: Positive for nausea, vomiting. Denied any abdominal pain, diarrhea, constipation, melena, hematochezia, hematemesis GENITOURINARY: Denies frequency, urgency, nocturia, hematuria or incontinence (Storage/Irritative symptoms.) Low urinary stream, straining to void, urinary intermittency or hesitancy, splitting of the voiding stream, terminal dribbling. ENDOCRINOLOGIC: Denies polyuria, polydipsia, polyphagia or heat/cold intolerances. HEMATOLOGIC: Denies thrombophilia/previous clots, or coagulopathy/bleeding disorders. ONCOLOGIC: Denies personal history of malignancy. DERMATOLOGIC: Denies rashes or pruritus. PSYCHIATRIC: Denies any suicidal or homicidal ideation. Denies hallucinations. PHYSICAL EXAM GENERAL APPEARANCE: The patient is awake, alert, and oriented, in no acute cardiopulmonary distress. NEUROLOGICAL: Cranial nerves II-XII grossly intact. Motor is 5/5 in bilateral upper and lower extremities proximal to distal. No sensory deficits. HEENT: Face is symmetric. Pupils are equal and reactive. Extraocular movements are intact. NECK: Supple. No JVD. No thyromegaly. No submental, submandibular, pre- /postauricular, occipital or supraclavicular lymphadenopathy. CHEST: Normal chest expansion. No Telemetry. LUNGS: Patient has rales preset bilaterally CARDIOVASCULAR: Regular. S1 and S2 normal. No appreciable rubs, murmurs or g allops. ABDOMEN: Soft, nontender, and nondistended. There is no rebound, voluntary gua rding, or rigidity. : Deferred. No Bor[place]. EXTREMITIES: Non-edematous and not cyanotic. No clubbing. Good capillary refill. SKIN: No skin breakdown. Vital Signs (last 8hr) Date Time Temp Pulse Resp B/P (MAP) Pulse Ox O2 Delivery O2 Flow Rate FiO2 07/06/24 08:00 97.3 79 17 129/64 92 Room Air 07/06/24 06:23 78 20 N/Cannula Low lpm 2.0 07/06/24 06:22 78 20 07/06/24 04:00 98.8 92 18 127/51 96 Nasal Cannula 2.0 24 LABS: Laboratory: Test 07/06/24 05:50 07/05/24 18:50 07/04/24 19:47 07/04/24 14:17 Range/Units White Blood Count 7.0 4.8-10.8 K/uL Red Blood Count 3.31 L 4.00-5.50 MIL/uL Hemoglobin 9.5 L 12.0-16.0 g/dL Hematocrit 29.4 L 36-48 % Mean Corpuscular Volume 88.8 79-99 fL Mean Corpuscular Hemoglobin 28.7 27.0-33.0 pg Mean Corpuscular Hemoglobin Concent 32.3 32.0-36.0 g/dL Red Cell Distribution Width 13.9 11.0-15.5 % Platelet Count 134 # 130-400 K/uL Mean Platelet Volume 10.9 H 7.5-10.5 fL Immature Granulocyte % (Auto) 0.4 0-1 % Neutrophils (%) (Auto) 74.0 40.0-77.0 % Lymphocytes (%) (Auto) 9.8 L 21.0-51.0 % Monocytes (%) (Auto) 9.9 3.0-13.0 % Eosinophils (%) (Auto) 5.3 0.0-8.0 % Basophils (%) (Auto) 0.6 0.0-5.0 % Neutrophils # (Auto) 5.2 1.8-7.7 K/uL Lymphocytes # (Auto) 0.7 L 1.0-4.8 K/uL Monocytes # (Auto) 0.7 0.1-1.0 K/uL Eosinophils # (Auto) 0.37 0.00-0.70 K/uL Basophils # (Auto) 0.04 0.00-0.20 K/uL Absolute Immature Granulocyte (auto 0.03 0-1 K/uL Nucleated Red Blood Cells 0.0 0.0-0.19 % Sodium Level 142 136-145 mmol/L Potassium Level 3.8 3.5-5.1 mmol/L Chloride Level 109 101-111 mmol/L Carbon Dioxide Level 28 21-32 mmol/L Blood Urea Nitrogen 18 7-18 mg/dL Creatinine 0.9 0.5-1.0 mg/dL Glomerular Filtration Rate Calc 63 >90 mL/min Random Glucose 101 70-105 mg/dL Total Calcium 7.7 L 8.5-10.1 mg/dL Magnesium Level 1.80 1.80-2.40 mg/dL Iron Level 14 L 50-170 mcg/dL Total Iron Binding Capacity 169 L 250-450 mcg/dL Percent Iron Saturation 8.2 L 22-44 % Total Bilirubin 0.3 0.2-1.0 mg/dL Aspartate Amino Transf (AST/SGOT) 11 10-37 U/L Alanine Aminotransferase (ALT/SGPT) 12 12-78 U/L Alkaline Phosphatase 35 L 50-136 U/L Total Protein 7.1 6.0-8.3 g/dL Albumin 1.9 L 3.5-5.0 g/dL Influenza Type A Antigen Negative For Type A NEGATIVE Influenza Type B Antigen Negative For Type B NEGATIVE Group A Streptococcus Rapid negative NEGATIVE Urine Color LIGHT-YELLOW YELLOW Urine Appearance CLOUDY H CLEAR Urine pH 5.5 5.0-8.0 Urine Specific [place] 1.020 1.001-1.031 Urine Protein 10 H NEGATIVE mg/dL Urine Glucose (UA) NEGATIVE NEGATIVE mg/dL Urine Ketones NEGATIVE NEGATIVE mg/dL Urine Occult Blood +- (TRACE) H NEGATIVE Urine Nitrate NEGATIVE NEGATIVE Urine Bilirubin NEGATIVE NEGATIVE mg/dL Urine Urobilinogen 0.2 0.2-1.0 mg/dL Urine Leukocyte Esterase 500 H NEGATIVE Joo/uL Urine RBC 2-5 H 0-1 /HPF Urine WBC TNTC H 0-1 /HPF Urine WBC Clumps (Auto) MOD 0-1 /HPF Urine Squamous Epithelial Cells RARE 0-2 /HPF Urine Non-Squamous Epithelial Cells 2 0-2 /HPF Urine Bacteria None None Seen /HPF Urine Random Creatinine 120.35 30-135 mg/dL Urine Random Sodium 23 L 40-220 mmol/l Lactic Acid Level 1.7 0.8-2.5 mmol/L Test 07/04/24 12:51 07/04/24 10:55 Range/Units Blood Gas Specimen Type Arterial Arterial Blood pH 7.456 H 7.350-7.450 Arterial Blood Partial Pressure CO2 34 32-45 mmHg Arterial Blood Partial Pressure O2 60.0 L 83.0-108.0 mmHg Arterial Blood HCO3 23.2 21.0-28.0 mmol/L Arterial Blood Oxygen Saturation 90.7 L 94.0-98.0 % Arterial Blood Base Excess -0.2 -2.0-3.0 mmol/L Hemoglobin (Blood Gas) 11.2 L 12.0-16.0 g/dL Sodium (Blood Gas) 137 136-145 MMOL/L Bedside Potassium (Blood Gas) 3.9 3.4-4.5 MMOL/L Bedside Chloride (Blood Gas) 104 98-107 MMOL/L Bedside Glucose (Blood Gas) 108 H 65-95 MG/DL Bedside Ionized Calcium (Blood Gas) 1.19 1.15-1.33 MMOL/L Bedside Lactic Acid (Blood Gas) 1.16 H 0.36-0.75 MMOL/L Blood Gas Temperature 37.0 35.5-37.0 CELSIUS Blood Gas Vent Mode RA ROOM AIR FiO2 21.0 % Blood Gas Specimen Comment RR DR NUÑEZ White Cell Morphology Comment See comments Troponin I High Sensitivity 5 4-50 ng/L Lipase 20 16-77 U/L Current Medications Medications (Trade) Dose Ordered Sig/Boris Route PRN Reason Start Time Stop Time Status Last Admin Dose Admin Acetaminophen (TYLenol 500MG TAB) 500 mg Q6H PRN PO MILD PAIN (1-3) 07/04/24 14:30 08/03/24 14:29 Albuterol Sulfate (Proventil 0.083% 2.5mg/3ml) 2.5MG Q6H PRN IH SHORTNESS OF BREATH 07/04/24 14:30 08/03/24 14:29 07/06/24 06:22 2.5 MG Azithromycin 250 ml @ 250 mls/hr Q24H IVPB 07/05/24 14:30 07/15/24 14:29 07/05/24 15:30 250 MLS/HR Famotidine (Pepcid 20mg Vial) 20 mg DAILY IV 07/05/24 09:00 07/04/24 18:34 DC Fluticasone/ Vilanterol (BrEO ELLiptA 200-25 MCG INH) 1 INH DAILY DAILY IH 07/06/24 09:00 08/04/24 08:59 07/06/24 09:16 1 EACH Fluticasone/ Vilanterol (BrEO ELLiptA 200-25 MCG INH) 1 each DAILY IH 07/05/24 09:00 07/05/24 12:19 DC 07/05/24 08:28 1 EACH Home Med (Home Medication) (Doxazosin Mesylate 1MG TAB) BID PO 07/04/24 21:00 08/03/24 20:59 07/06/24 09:18 1 EACH Hydralazine HCl (APRESOLine 20MG INJ) 10 mg Q6H PRN IV ADMINISTER FOR SBP > 180 07/04/24 18:00 08/03/24 17:59 Levetiracetam (kepPRA 250 MG TABLET) 250 mg DAILY PO 07/05/24 09:00 08/04/24 08:59 07/06/24 09:17 250 MG Levetiracetam (kepPRA 500 MG TABLET) 500 mg HS PO 07/04/24 21:00 08/03/24 20:59 07/05/24 21:19 500 MG Levothyroxine Sodium (SYNTHroid 25MCG TAB) 25 mcg SYN PO 07/05/24 06:30 08/04/24 06:29 07/06/24 06:27 25 MCG Metoprolol Succinate (TopROL XL) 100 mg BID PO 07/04/24 21:00 08/03/24 20:59 07/06/24 09:17 100 MG Ondansetron HCl (zoFRAN 4MG INJ) 4 mg Q6H PRN IVP NAUSEA/VOMITING 07/04/24 19:00 08/03/24 18:59 Oxybutynin Chloride (ditROPAN XL) 10 mg HS PO 07/04/24 21:00 08/03/24 20:59 07/05/24 21:09 10 MG Pantoprazole Sodium (PROTonix 40MG TAB) 40 mg DAILY PO 07/05/24 09:00 08/04/24 08:59 07/05/24 08:29 40 MG Piperacillin Sod/ Tazobactam Sod (Zosyn 3.375gm+NS 50ml) 3.375 gm Q8H IVPB 07/04/24 18:00 07/14/24 17:59 07/06/24 09:17 3.375 GM Pregabalin ([id number]) 150 mg HS PO 07/04/24 21:00 08/03/24 20:59 07/05/24 21:09 150 MG Raloxifene HCl (Evista) 60 mg DAILY PO 07/05/24 09:00 08/04/24 08:59 07/06/24 09:17 60 MG Simvastatin (zoCOR) 20 mg HS PO 07/04/24 21:00 08/03/24 20:59 07/05/24 21:09 20 MG Sodium Chloride 1,000 ml @ 75 mls/hr [id number] IV 07/04/24 14:30 08/03/24 14:29 07/05/24 18:29 75 MLS/HR DIAGNOSTICS / RADIOLOGY: [ ] ASSESSMENT: Suspected aspiration pneumonia POA Hiatal hernia with symptomatic nausea vomiting being evaluated outpatient for surgery Dehydration resolved Normocytic anemia GERD Acute kidney injury resolved Hypertension Hyperlipidemia Hypothyroidism History of seizures History of intracranial bleed status post embolization Iron deficiency UTI growing Gram-negative rods PLAN: Admit: Medical-surgical with tele remains ED holding 13 condition: Guarded Status: Full code IVF: Gentle hydration normal saline Consultants vocational teacher's, monorail helper's Antibiotics: Azithromycin IV and Zosyn we will follow-up urine cultures Test: Sputum cultures in process growing 1+ Gram-negative rods Oxygen supplement to keep O2 sats above 92%. Bronchodilators Aspiration precautions head of the bed at 45 at all time Speech to eval we will follow recommendations We will monitor H&H trend to keep hemoglobin above 7.0, Venofer 200 mg x1 Labs cbc, cmp, mag+ Replace electrolytes as needed as per protocol to keep potassium above 4.0 magnesium 2.0. Seizures precautions continue Keppra Supportive measures: DVT ppx, GI ppx all questions answered Supervising MD: Dr. Oropeza c/d ATTESTATION BY PHYSICIAN I have seen and examined the patient. I reviewed the documentation, medical decision making, and treatment plan as noted by the mid-level provider above. I agree with the findings and plan of care. DILIP OROPEZA MD, ELIZABETH NP Jul 06, 2024 09:52
--- NOTE | 2024-07-06 12:29 | PN ---
[facility] PROGRESS NOTE Date Patient Seen: Jul 06, 2024 Time of Visit: 12:27 Supervising Physician: Dr. Nick Low PROBLEM LIST: Suspected aspiration pneumonia POA Hiatal hernia with symptomatic nausea vomiting being evaluated outpatient for surgery Dehydration Normocytic anemia GERD Acute kidney injury Hypertension Hyperlipidemia Hypothyroidism History of seizures History of intracranial bleed status post embolization UTI POA INTERVAL HISTORY: Patient evaluated at bedside, currently on room air, no acute distress, patient denies any shortness of breath or chest pain at this time. Patient has responde d well to medical treatment, white count today is 7.0. Patient continues to express concern regarding her scheduled surgery for hiatal hernia repair which is scheduled for with Dr. Brown. Patient also states that she is supposed to be starting a clear liquid diet on Sunday in preparation for this surgery. She has asked that primary team be notified that she would like Dr. Brown to be made aware that she is currently admitted in the hospital, and would like to attempt to proceed with the surgery as it was the consensus of both Pulmonary as well as the patient did the hiatal hernia is partially responsible for her aspiration of gastric contents. Patient endorses two nights in the last week that she has woken up with the ascitic gastric contents in her mouth. We will follow up with a chest x-ray in the morning for further evaluation of her infiltrates. No changes to medical management at this time. REVIEW OF SYSTEMS: 12 point ROS reviewed with patient. Pertinent positives mentioned above. Otherwise negative. PHYSICAL EXAM: GENERAL: alert, weak, awake oriented x 3 HEENT: EOMI, Sclera non icteric, moist mucosa NECK: Supple, no JVD, trachea midline LUNGS: Clear breath sounds bilaterally. No wheezes HEART: Regular rate and rhythm. Normal S1 and S2, without murmurs ABD: Abdomen soft, nontender. Bowel sounds present EXT: No clubbing cyanosis or edema NEURO: Alert and oriented to person, follows commands Vital Signs (last 8hr) Date Time Temp Pulse Resp B/P (MAP) Pulse Ox O2 Delivery O2 Flow Rate FiO2 07/06/24 11:57 97.3 84 17 148/76 93 Room Air 07/06/24 11:10 73 20 N/A Room Air 21 07/06/24 11:06 73 20 07/06/24 10:46 92 Room Air* 0 21 07/06/24 08:00 97.3 79 17 129/64 92 Room Air 07/06/24 06:23 78 20 N/Cannula Low lpm 2.0 07/06/24 06:22 78 20 LABS: Hematology Labs: Test 07/06/24 05:50 Range/Units White Blood Count 7.0 4.8-10.8 K/uL Red Blood Count 3.31 L 4.00-5.50 MIL/uL Hemoglobin 9.5 L 12.0-16.0 g/dL Hematocrit 29.4 L 36-48 % Mean Corpuscular Volume 88.8 79-99 fL Mean Corpuscular Hemoglobin 28.7 27.0-33.0 pg Mean Corpuscular Hemoglobin Concent 32.3 32.0-36.0 g/dL Red Cell Distribution Width 13.9 11.0-15.5 % Platelet Count 134 # 130-400 K/uL Mean Platelet Volume 10.9 H 7.5-10.5 fL Immature Granulocyte % (Auto) 0.4 0-1 % Neutrophils (%) (Auto) 74.0 40.0-77.0 % Lymphocytes (%) (Auto) 9.8 L 21.0-51.0 % Monocytes (%) (Auto) 9.9 3.0-13.0 % Eosinophils (%) (Auto) 5.3 0.0-8.0 % Basophils (%) (Auto) 0.6 0.0-5.0 % Neutrophils # (Auto) 5.2 1.8-7.7 K/uL Lymphocytes # (Auto) 0.7 L 1.0-4.8 K/uL Monocytes # (Auto) 0.7 0.1-1.0 K/uL Eosinophils # (Auto) 0.37 0.00-0.70 K/uL Basophils # (Auto) 0.04 0.00-0.20 K/uL Absolute Immature Granulocyte (auto 0.03 0-1 K/uL Nucleated Red Blood Cells 0.0 0.0-0.19 % Chemistry Labs: Test 07/06/24 05:50 07/04/24 14:17 Range/Units Sodium Level 142 136-145 mmol/L Potassium Level 3.8 3.5-5.1 mmol/L Chloride Level 109 101-111 mmol/L Carbon Dioxide Level 28 21-32 mmol/L Blood Urea Nitrogen 18 7-18 mg/dL Creatinine 0.9 0.5-1.0 mg/dL Glomerular Filtration Rate Calc 63 >90 mL/min Random Glucose 101 70-105 mg/dL Total Calcium 7.7 L 8.5-10.1 mg/dL Magnesium Level 1.80 1.80-2.40 mg/dL Iron Level 14 L 50-170 mcg/dL Total Iron Binding Capacity 169 L 250-450 mcg/dL Percent Iron Saturation 8.2 L 22-44 % Total Bilirubin 0.3 0.2-1.0 mg/dL Aspartate Amino Transf (AST/SGOT) 11 10-37 U/L Alanine Aminotransferase (ALT/SGPT) 12 12-78 U/L Alkaline Phosphatase 35 L 50-136 U/L Total Protein 7.1 6.0-8.3 g/dL Albumin 1.9 L 3.5-5.0 g/dL Lactic Acid Level 1.7 0.8-2.5 mmol/L DIAGNOSTICS / RADIOLOGY RESULTS: [ ] PLAN NEURO: Minimize central acting medications as possible. Maintain fall precautions, adequate lighting during the day PULMONARY: Supplemental 02 as needed. Maintain aspiration precautions at all times CARDIOVASCULAR: Follow hemodynamics. Vital signs per facility protocol GI & NUTRITION: Continue with nutritional support. Continue stool softeners and laxatives as needed. KIDNEYS & ELECTROLYTES: Strict monitoring of intake, output and overall fluid balance. Avoid nephrotoxic medications to the extent possible. Medications to be dosed according to renal function. Monitor electrolytes and replace as needed ENDOCRINE: Maintain blood glucose between 100-180 at all times. Hypoglycemia protocol in place INFECTIOUS DISEASE: Trend temperature, WBC and procalcitonin level Follow cultures, deescalate antibiotics as soon as possible. Panculture if new onset fever ONCOLOGY/HEMATOLOGY/COAGULATION: Monitor for s/s of bleeding Monitor hemoglobin, coagulation studies as needed SKIN: Pressure ulcer prevention per facility protocol Specialty mattress ORTHO/REHAB: Continue PT/OT Prophylaxis: Continue GI and DVT prophylaxis Code Status: Full Resuscitation Disposition: TBD Other: Total patient care time exceeds 35 minutes excluding all procedures. DOMINIQUE BLANC Jul 06, 2024 12:29
[2024-07-06] MEDS: IRON sUCROse COMPLEX 100 MG/5 ML VIAL IV ONE (13:00)
--- NOTE | 2024-07-06 19:20 | PN ---
FOLLOWUP PROGRESS NOTE SUBJECTIVE: An 84-year-old female initially presented, found to have urinary tract infection. She had acute renal failure in the hospital and creatinine is actually much improved. The patient is now tolerating a diet without difficulty and the patient is being seen as a followup visit for all of the above. REVIEW OF SYSTEMS: GENERAL: She is feeling much improved. HEENT: No change in vision. No change in hearing, no nasal discharge, no sore throat. CARDIOVASCULAR: There is no current chest pain or palpitations. PULMONARY: She denies shortness of breath. GASTROINTESTINAL: The patient is tolerating a diet. MUSCULOSKELETAL: Complains of weakness. PHYSICAL EXAMINATION:. VITAL SIGNS: Blood pressure 129/74, pulse in the 70s. GENERAL: She is a chronically ill elderly female, lying in bed on the medical floor. HEENT: Head is atraumatic. Pupils are equal, roving to light. Oropharynx is without exudate. Nares clear. NECK: There is no JVP. There is no thyromegaly, no mass. CARDIOVASCULAR: Regular. There is no S3, S4 gallop. LUNGS: Coarse with equal thoracic movement. ABDOMEN: Soft, nondistended, nontender. EXTREMITIES: Reveal no clubbing, no cyanosis. NEUROLOGIC: She is awake. She is alert. She is oriented. LABORATORY DATA: Sodium 142, potassium 3.8, BUN 18, creatinine 0.9. Iron levels are noted. Hemoglobin 9.5, hematocrit 29. IMPRESSION: * Acute renal failure, much improved. * Urinary tract infection. * Volume depletion. * Anemia. PLAN: The patient's creatinine continues to slowly improve. The patient is tolerating a diet. IV fluids can safely be discontinued. The patient remains on the antibiotics as prescribed. The patient will be given a dose of Venofer for the anemia. We will follow closely. Once the patient is discharged, she can follow up in the [facility]. TID: [id number] RECEIPT: [id number]
[2024-07-06] MEDS: LoSARTan 100 MG TABLET PO SCH (20:37)
--- NOTE | 2024-07-06 21:00 | NUR ---
BEDSIDE SWALLOW EVAL COMPLETED. No s/s of aspiration. Recommend regular solids, thin liquids, and whole meds with liquids. Compensatory strategies 1. Sit upright 2. slow oral intake 3. Remain upright 30 min post meal JOB COACH reviewed results and recommendations with patient and nurse Adriana. JOB COACH educated patient on risk and consequences of aspiration. Speech Therapy not warranted at this time. All questions answered. Addendum: 07/06/24 at 2129 by ALEXANDER GUAN Amended: Links added.
[2024-07-06] MEDS: IRON sUCROse COMPLEX 300 MG in 0.9% NACL 250ML 250 ML IV ONE (21:10)
[2024-07-07] VITALS (19 sets, daily range): BP systolic 125–154; BP diastolic 61–88; PULSE 58–96; RESP 18–22; TEMP 97.5–98.3; O2SAT 87–98
[2024-07-07] MEDS: IpraTROPium 0.5 MG/2.5 ML INH IH SCH (02:01)
[2024-07-07 06:10] LABS: BASOPHILS # (AUTO) 0.02 K/uL (0.00-0.20); BASOPHILS % (AUTO) 0.3 % (0.0-5.0); EOSINOPHILS # (AUTO) 0.51 K/uL (0.00-0.70); EOSINOPHILS % (AUTO) 8.4 % (0.0-8.0); HEMATOCRIT 28.9 % (36-48); IMMATURE GRANULOCYTE ABSOLUTE 0.02 K/uL (0-1); LYMPHOCYTES # (AUTO) 0.9 K/uL (1.0-4.8); LYMPHOCYTES % (AUTO) 14.4 % (21.0-51.0); MEAN CORPUSCULAR HEMOGLOBIN 28.4 pg (27.0-33.0); MEAN CORPUSCULAR HGB CONC 32.2 g/dL (32.0-36.0); MEAN CORPUSCULAR VOLUME 88.1 fL (79-99); MONOCYTES # (AUTO) 0.6 K/uL (0.1-1.0); MONOCYTES % (AUTO) 10.6 % (3.0-13.0); PLATELET COUNT (AUTO) 164 K/uL (130-400); RED BLOOD CELL COUNT(AUTO) 3.28 MIL/uL (4.00-5.50); RED CELL DISTRIBUTION WIDTH 13.9 % (11.0-15.5)
[2024-07-07 06:37] LABS: ALBUMIN 1.8 g/dL (3.5-5.0); BILIRUBIN,TOTAL 0.4 mg/dL (0.2-1.0); CREATININE 0.8 mg/dL (0.5-1.0); MAGNESIUM 1.7 mg/dL (1.80-2.40); POTASSIUM 3.7 mmol/L (3.5-5.1); TOTAL PROTEIN, SERUM 7.1 g/dL (6.0-8.3)
[2024-07-07] MEDS: TELMISARTAN 80MG TABLET PO SCH (09:00)
[2024-07-07 10:10] LABS: ABG BASE EXCESS 0.1 mmol/L (-2.0-3.0); ABG HCO3 23.5 mmol/L (21.0-28.0); ABG OXYGEN SATURATION 91.5 % (94.0-98.0); ABG PCO2 35 mmHg (32-45); ABG PH 7.447 (7.350-7.450); PO2, ARTERIAL BG 58.1 mmHg (83.0-108.0); VENT MODE, BG RA (ROOM AIR)
--- NOTE | 2024-07-07 11:34 | PN ---
[facility] PROGRESS NOTE Date of Service: Jul 07, 2024 Time of Service: 11:31 SUBJECTIVE: [ ] 84-year-old female with past medical history of hiatal hernia, hypertension, hyperlipidemia, hypothyroidism, history of seizures, history of intracranial bleed status post embolization who presented to the hospital secondary to cough, generalized fatigue. Patient states her symptoms started today after she had episodes of vomiting. She has a history of hiatal hernia and felt she might have aspirated from the vomiting. She had previously seen a surgeon for the hiatal hernia and was scheduled for a surgical repair next week on . Patient remains in ED holding. Patient is lying in bed she is currently on room air. Breath sounds crackles lower bases. She continues with empiric antibiotics. Tolerating. Daughter at bedside answer all questions appropriately. 07/06/24 patient is lying in bed head of the bed 45 unable to lay flat. Oxygen supplemental at 2 L. Epic Professional's following 07/07/2024 patient is seen and examined patient is sitting in chair waiting for 6 minute walk. It appears patient continues with dyspnea on minimal exertion. Tolerating IV antibiotics waiting for final respiratory cultures. 1330 patient did not pass 6 minute walk we will need home oxygen case management to arranged REVIEW OF SYSTEMS CONSTITUTIONAL: Denies fevers, chills, or night sweats. No unintentional weight loss reported. NEUROLOGICAL: Denies headache, amaurosis fugax, motor weakness, sensory deficit, vertigo/spinning sensation, gait abnormalities, or tremors. ENT: No hearing loss, otalgia, otorrhea, rhinitis, rhinorrhea, hoarseness, or sore throat. CARDIOVASCULAR: Denies any exertional angina, dyspnea on exertion, orthopnea, paroxysmal nocturnal dyspnea, palpitations, life-threatening arrhythmias, claudication. PULMONARY: Positive for cough, shortness of breath, sputum production GASTROINTESTINAL: Positive for nausea, vomiting. Denied any abdominal pain, diarrhea, constipation, melena, hematochezia, hematemesis GENITOURINARY: Denies frequency, urgency, nocturia, hematuria or incontinence (Storage/Irritative symptoms.) Low urinary stream, straining to void, urinary intermittency or hesitancy, splitting of the voiding stream, terminal dribbling. ENDOCRINOLOGIC: Denies polyuria, polydipsia, polyphagia or heat/cold intolerances. HEMATOLOGIC: Denies thrombophilia/previous clots, or coagulopathy/bleeding disorders. ONCOLOGIC: Denies personal history of malignancy. DERMATOLOGIC: Denies rashes or pruritus. PSYCHIATRIC: Denies any suicidal or homicidal ideation. Denies hallucinations. PHYSICAL EXAM GENERAL APPEARANCE: The patient is awake, alert, and oriented, in no acute cardiopulmonary distress. NEUROLOGICAL: Cranial nerves II-XII grossly intact. Motor is 5/5 in bilateral upper and lower extremities proximal to distal. No sensory deficits. HEENT: Face is symmetric. Pupils are equal and reactive. Extraocular movements are intact. NECK: Supple. No JVD. No thyromegaly. No submental, submandibular, pre- /postauricular, occipital or supraclavicular lymphadenopathy. CHEST: Normal chest expansion. No Telemetry. LUNGS: Patient has rales preset bilaterally CARDIOVASCULAR: Regular. S1 and S2 normal. No appreciable rubs, murmurs or gallops. ABDOMEN: Soft, nontender, and nondistended. There is no rebound, voluntary guarding, or rigidity. : Deferred. No Borja. EXTREMITIES: Non-edematous and not cyanotic. No clubbing. Good capillary refill. SKIN: No skin breakdown. Vital Signs (last 8hr) Date Time Temp Pulse Resp B/P (MAP) Pulse Ox O2 Delivery O2 Flow Rate FiO2 07/07/24 10:33 90 20 07/07/24 10:32 82 18 21 96 18 21 90 18 28 07/07/24 08:07 95 Nasal Cannula* 3 32 07/07/24 08:00 97.5 71 18 147/65 92 Room Air 07/07/24 06:54 78 20 07/07/24 06:53 78 20 N/A Room Air 21 07/07/24 04:00 98.2 69 19 139/62 95 Nasal Cannula 2.5 LABS: Laboratory: Test 07/07/24 10:09 07/07/24 06:03 07/06/24 05:50 07/05/24 18:50 Range/Units Blood Gas Specimen Type Arterial Arterial Blood pH 7.447 7.350-7.450 Arterial Blood Partial Pressure CO2 35 32-45 mmHg Arterial Blood Partial Pressure O2 58.1 L 83.0-108.0 mmHg Arterial Blood HCO3 23.5 21.0-28.0 mmol/L Arterial Blood Oxygen Saturation 91.5 L 94.0-98.0 % Arterial Blood Base Excess 0.1 -2.0-3.0 mmol/L Blood Gas Temperature 37.0 35.5-37.0 CELSIUS Blood Gas Vent Mode RA ROOM AIR FiO2 21.0 % Blood Gas Specimen Comment RR MAGGI White Blood Count 6.0 4.8-10.8 K/uL Red Blood Count 3.28 L 4.00-5.50 MIL/uL Hemoglobin 9.3 L 12.0-16.0 g/dL Hematocrit 28.9 L 36-48 % Mean Corpuscular Volume 88.1 79-99 fL Mean Corpuscular Hemoglobin 28.4 27.0-33.0 pg Mean Corpuscular Hemoglobin Concent 32.2 32.0-36.0 g/dL Red Cell Distribution Width 13.9 11.0-15.5 % Platelet Count 164 130-400 K/uL Mean Platelet Volume 10.6 H 7.5-10.5 fL Immature Granulocyte % (Auto) 0.3 0-1 % Neutrophils (%) (Auto) 66.0 40.0-77.0 % Lymphocytes (%) (Auto) 14.4 L 21.0-51.0 % Monocytes (%) (Auto) 10.6 3.0-13.0 % Eosinophils (%) (Auto) 8.4 H 0.0-8.0 % Basophils (%) (Auto) 0.3 0.0-5.0 % Neutrophils # (Auto) 4.0 1.8-7.7 K/uL Lymphocytes # (Auto) 0.9 L 1.0-4.8 K/uL Monocytes # (Auto) 0.6 0.1-1.0 K/uL Eosinophils # (Auto) 0.51 0.00-0.70 K/uL Basophils # (Auto) 0.02 0.00-0.20 K/uL Absolute Immature Granulocyte (auto 0.02 0-1 K/uL Nucleated Red Blood Cells 0.0 0.0-0.19 % Sodium Level 136 136-145 mmol/L Potassium Level 3.7 3.5-5.1 mmol/L Chloride Level 107 101-111 mmol/L Carbon Dioxide Level 28 21-32 mmol/L Blood Urea Nitrogen 12 7-18 mg/dL Creatinine 0.8 0.5-1.0 mg/dL Glomerular Filtration Rate Calc 73 >90 mL/min Random Glucose 94 70-105 mg/dL Total Calcium 7.7 L 8.5-10.1 mg/dL Magnesium Level 1.70 L 1.80-2.40 mg/dL Total Bilirubin 0.4 0.2-1.0 mg/dL Aspartate Amino Transf (AST/SGOT) 12 10-37 U/L Alanine Aminotransferase (ALT/SGPT) 16 12-78 U/L Alkaline Phosphatase 37 L 50-136 U/L Total Protein 7.1 6.0-8.3 g/dL Albumin 1.8 L 3.5-5.0 g/dL Iron Level 14 L 50-170 mcg/dL Total Iron Binding Capacity 169 L 250-450 mcg/dL Percent Iron Saturation 8.2 L 22-44 % Influenza Type A Antigen Negative For Type A NEGATIVE Influenza Type B Antigen Negative For Type B NEGATIVE Group A Streptococcus Rapid negative NEGATIVE Current Medications Medications (Trade) Dose Ordered Sig/Boris Route PRN Reason Start Time Stop Time Status Last Admin Dose Admin Acetaminophen (TYLenol 500MG TAB) 500 mg Q6H PRN PO MILD PAIN (1-3) 07/04/24 14:30 08/03/24 14:29 Albuterol Sulfate (Proventil 0.083% 2.5mg/3ml) 2.5MG Q6H PRN IH SHORTNESS OF BREATH 07/04/24 14:30 08/03/24 14:29 07/06/24 23:31 2.5 MG Azithromycin 250 ml @ 250 mls/hr Q24H IVPB 07/05/24 14:30 07/15/24 14:29 07/06/24 14:58 250 MLS/HR Famotidine (Pepcid 20mg Vial) 20 mg DAILY IV 07/05/24 09:00 07/04/24 18:34 DC Fluticasone/ Vilanterol (BrEO ELLiptA 200-25 MCG INH) 1 INH DAILY DAILY IH 07/06/24 09:00 08/04/24 08:59 07/07/24 10:39 1 EACH Fluticasone/ Vilanterol (BrEO ELLiptA 200-25 MCG INH) 1 each DAILY IH 07/05/24 09:00 07/05/24 12:19 DC 07/05/24 08:28 1 EACH Home Med (Home Medication) DAILY PO 07/07/24 09:00 08/06/24 08:59 Home Med (Home Medication) (Doxazosin Mesylate 1MG TAB) BID PO 07/04/24 21:00 08/03/24 20:59 07/07/24 10:39 1 EACH Hydralazine HCl (APRESOLine 20MG INJ) 10 mg Q6H PRN IV ADMINISTER FOR SBP > 180 07/04/24 18:00 08/03/24 17:59 Ipratropium [place] (AtrovENT UD) 0.5 MG [id number] IH 07/07/24 02:00 08/06/24 01:59 07/07/24 10:28 0.5 MG Levetiracetam (kepPRA 250 MG TABLET) 250 mg DAILY PO 07/05/24 09:00 08/04/24 08:59 07/07/24 10:35 250 MG Levetiracetam (kepPRA 500 MG TABLET) 500 mg HS PO 07/04/24 21:00 08/03/24 20:59 07/06/24 20:37 500 MG Levothyroxine Sodium (SYNTHroid 25MCG TAB) 25 mcg SYN PO 07/05/24 06:30 08/04/24 06:29 07/07/24 05:46 25 MCG Losartan Potassium (CozAAR 100MG TAB) 100 mg HS PO 07/06/24 21:00 07/07/24 06:09 DC 07/06/24 20:37 100 MG Metoprolol Succinate (TopROL XL) 100 mg BID PO 07/04/24 21:00 08/03/24 20:59 07/07/24 10:35 100 MG Ondansetron HCl (zoFRAN 4MG INJ) 4 mg Q6H PRN IVP NAUSEA/VOMITING 07/04/24 19:00 08/03/24 18:59 Oxybutynin Chloride (ditROPAN XL) 10 mg HS PO 07/04/24 21:00 08/03/24 20:59 07/06/24 20:37 10 MG Pantoprazole Sodium (PROTonix 40MG TAB) 40 mg DAILY PO 07/05/24 09:00 08/04/24 08:59 07/07/24 10:35 40 MG Piperacillin Sod/ Tazobactam Sod (Zosyn 3.375gm+NS 50ml) 3.375 gm Q8H IVPB 07/04/24 18:00 07/14/24 17:59 07/07/24 10:35 3.375 GM Pregabalin ([id number]) 150 mg HS PO 07/04/24 21:00 08/03/24 20:59 07/06/24 20:38 150 MG Raloxifene HCl (Evista) 60 mg DAILY PO 07/05/24 09:00 08/04/24 08:59 07/07/24 10:35 60 MG Simvastatin (zoCOR) 20 mg HS PO 07/04/24 21:00 08/03/24 20:59 07/06/24 20:37 20 MG Sodium Chloride 1,000 ml @ 75 mls/hr [id number] IV 07/04/24 14:30 07/06/24 11:45 DC 07/05/24 18:29 75 MLS/HR DIAGNOSTICS / RADIOLOGY: [ ] ASSESSMENT: Acute respiratory failure requiring oxygen supplemental POA Suspected aspiration pneumonia POA Hiatal hernia with symptomatic nausea vomiting being evaluated outpatient for surgery Dehydration resolved Normocytic anemia GERD Acute kidney injury resolved Hypertension Hyperlipidemia Hypothyroidism History of seizures History of intracranial bleed status post embolization Iron deficiency UTI growing Gram-negative rods PLAN: Admit: Medical-surgical with tele remains ED holding 13 condition: Guarded Status: Full code IVF: Gentle hydration normal saline Consultants 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 6 minute walk today Bronchodilators Aspiration precautions head of the bed at 45 at all time Speech to eval we will follow recommendations We will monitor H&H trend to keep hemoglobin above 7.0, Labs cbc, cmp, mag+ Replace electrolytes as needed as per protocol to keep potassium above 4.0 magnesium 2.0. Seizures precautions continue Keppra Supportive measures: DVT ppx, GI ppx all questions answered case management: to arrange Home Oxygen Supervising MD: Dr. Vijay Rockwell c/d ATTESTATION BY PHYSICIAN I have seen and examined the patient. I reviewed the documentation, medical decision making, and treatment plan as noted by the mid-level provider above. I agree with the findings and plan of care. CESAR ARCHIBALD MD, ELIZABETH NP Jul 07, 2024 11:34
--- NOTE | 2024-07-07 13:01 | HMCIMG ---
CHEST 1VW HISTORY: Aspiration pneumonia COMPARISON: 07/04/2024 FINDINGS: A frontal projection of the chest was obtained. There are bilateral pulmonary infiltrates suggestive of pulmonary vascular congestion with possible superimposed pneumonitis. The heart is borderline enlarged. All the lines and tubes are again seen in place. No evidence of aortic calcification is seen. IMPRESSION: 1. Bilateral pulmonary infiltrates are seen suggestive of pulmonary vascular congestion with possible superimposed pneumonitis. There are bronchiectasis.
--- NOTE | 2024-07-07 13:08 | NUR ---
DCP Patient states Bushra Cruz from [place]. Patient lives with Haven Lewis, Daughter [phone] in a mobile home with walk in shower, currently. Patient is retired, remains independent and drives self. able to complete ADL's on her own. has a cane and a walker with seat. Denies home health services, home care providers or dialysis. PCP - Daniel, [facility]. Patient is scheduled for surgery, Laparoscopic Hiatal Hernia Repair with Dr. Brown, on July 10, 2024 and should start clear liquid diet tomorrow and be physically present at [facility] for registration tomorrow. Notified CM. CM making arrangements for oxygen therapy at home. Upon discharge, Haven Lewis, Daughter [phone] [address] Hui Camejo, Daughter [phone] and assist with care as needed. Addendum: 07/07/24 at 1327 by AAKASH PICKARD RN CM Amended: Links added.
--- NOTE | 2024-07-07 13:43 | NUR ---
Discharge Planning: Referral sent to [facility] for home 02.
--- NOTE | 2024-07-07 14:05 | NUR ---
D/C TELEMONITOR SPOKE TO AMY DAVILA; OK TO REMOVE TELEPACK
--- NOTE | 2024-07-07 15:28 | PN ---
[facility] PROGRESS NOTE Date Patient Seen: Jul 07, 2024 Time of Visit: 15:25 Supervising Physician: Dr. Mingo Bustos PROBLEM LIST: Suspected aspiration pneumonia POA Hiatal hernia with symptomatic nausea vomiting being evaluated outpatient for surgery Dehydration Normocytic anemia GERD Acute kidney injury Hypertension Hyperlipidemia Hypothyroidism History of seizures History of intracranial bleed status post embolization UTI POA INTERVAL HISTORY: Patient was seen at bedside today with daughter present, she went for 6 minute walk today and failed, currently on 2 L nasal cannula, patient at this time qualifies for home O2. Patient was advised this is likely not permanent and her respiratory status should begin to improve after her hiatal hernia repair surgery which is scheduled for . Patient has pending home O2 delivery for discharge however patient was scheduled to returned to this hospital for her surgery, to be cleaned clear liquid diet starting tomorrow. Patient was clear from a pulmonary standpoint to discharge home with oral antibiotics per culture susceptibilities once O2 is delivered. REVIEW OF SYSTEMS: 12 point ROS reviewed with patient. Pertinent positives mentioned above. Otherwise negative. PHYSICAL EXAM: GENERAL: alert, weak, awake oriented x 3 HEENT: EOMI, Sclera non icteric, moist mucosa NECK: Supple, no JVD, trachea midline LUNGS: Clear breath sounds bilaterally. No wheezes HEART: Regular rate and rhythm. Normal S1 and S2, without murmurs ABD: Abdomen soft, nontender. Bowel sounds present EXT: No clubbing cyanosis or edema NEURO: Alert and oriented to person, follows commands Vital Signs (last 8hr) Date Time Temp Pulse Resp B/P (MAP) Pulse Ox O2 Delivery O2 Flow Rate FiO2 07/07/24 14:54 83 20 07/07/24 12:00 98.1 76 18 125/61 95 Nasal Cannula 2.0 07/07/24 11:05 58 18 150/88 98 Room Air 07/07/24 10:33 90 20 07/07/24 10:32 82 18 21 96 18 21 90 18 28 07/07/24 08:07 95 Nasal Cannula* 3 32 07/07/24 08:00 97.5 71 18 147/65 92 Room Air LABS: Hematology Labs: Test 07/07/24 06:03 Range/Units White Blood Count 6.0 4.8-10.8 K/uL Red Blood Count 3.28 L 4.00-5.50 MIL/uL Hemoglobin 9.3 L 12.0-16.0 g/dL Hematocrit 28.9 L 36-48 % Mean Corpuscular Volume 88.1 79-99 fL Mean Corpuscular Hemoglobin 28.4 27.0-33.0 pg Mean Corpuscular Hemoglobin Concent 32.2 32.0-36.0 g/dL Red Cell Distribution Width 13.9 11.0-15.5 % Platelet Count 164 130-400 K/uL Mean Platelet Volume 10.6 H 7.5-10.5 fL Immature Granulocyte % (Auto) 0.3 0-1 % Neutrophils (%) (Auto) 66.0 40.0-77.0 % Lymphocytes (%) (Auto) 14.4 L 21.0-51.0 % Monocytes (%) (Auto) 10.6 3.0-13.0 % Eosinophils (%) (Auto) 8.4 H 0.0-8.0 % Basophils (%) (Auto) 0.3 0.0-5.0 % Neutrophils # (Auto) 4.0 1.8-7.7 K/uL Lymphocytes # (Auto) 0.9 L 1.0-4.8 K/uL Monocytes # (Auto) 0.6 0.1-1.0 K/uL Eosinophils # (Auto) 0.51 0.00-0.70 K/uL Basophils # (Auto) 0.02 0.00-0.20 K/uL Absolute Immature Granulocyte (auto 0.02 0-1 K/uL Nucleated Red Blood Cells 0.0 0.0-0.19 % Chemistry Labs: Test 07/07/24 06:03 07/06/24 05:50 Range/Units Sodium Level 136 136-145 mmol/L Potassium Level 3.7 3.5-5.1 mmol/L Chloride Level 107 101-111 mmol/L Carbon Dioxide Level 28 21-32 mmol/L Blood Urea Nitrogen 12 7-18 mg/dL Creatinine 0.8 0.5-1.0 mg/dL Glomerular Filtration Rate Calc 73 >90 mL/min Random Glucose 94 70-105 mg/dL Total Calcium 7.7 L 8.5-10.1 mg/dL Magnesium Level 1.70 L 1.80-2.40 mg/dL Total Bilirubin 0.4 0.2-1.0 mg/dL Aspartate Amino Transf (AST/SGOT) 12 10-37 U/L Alanine Aminotransferase (ALT/SGPT) 16 12-78 U/L Alkaline Phosphatase 37 L 50-136 U/L Total Protein 7.1 6.0-8.3 g/dL Albumin 1.8 L 3.5-5.0 g/dL Iron Level 14 L 50-170 mcg/dL Total Iron Binding Capacity 169 L 250-450 mcg/dL Percent Iron Saturation 8.2 L 22-44 % DIAGNOSTICS / RADIOLOGY RESULTS: [ ] PLAN NEURO: Minimize central acting medications as possible. Maintain fall precautions, adequate lighting during the day PULMONARY: Supplemental 02 as needed. Maintain aspiration precautions at all times CARDIOVASCULAR: Follow hemodynamics. Vital signs per facility protocol GI & NUTRITION: Continue with nutritional support. Continue stool softeners and laxatives as needed. KIDNEYS & ELECTROLYTES: Strict monitoring of intake, output and overall fluid balance. Avoid nephrotoxic medications to the extent possible. Medications to be dosed according to renal function. Monitor electrolytes and replace as needed ENDOCRINE: Maintain blood glucose between 100-180 at all times. Hypoglycemia protocol in place INFECTIOUS DISEASE: Trend temperature, WBC and procalcitonin level Follow cultures, deescalate antibiotics as soon as possible. Panculture if new onset fever ONCOLOGY/HEMATOLOGY/COAGULATION: Monitor for s/s of bleeding Monitor hemoglobin, coagulation studies as needed SKIN: Pressure ulcer prevention per facility protocol Specialty mattress ORTHO/REHAB: Continue PT/OT Prophylaxis: Continue GI and DVT prophylaxis Code Status: Full Resuscitation Disposition: TBD Other: Total patient care time exceeds 35 minutes excluding all procedures. DOMINIQUE BLANC Jul 07, 2024 15:28
--- NOTE | 2024-07-07 16:09 | PN ---
NEPHROLOGY PROGRESS NOTE Date/Time Patient Seen: Jul 07, 2024 Reason for Consultation: 16:06 SUBJECTIVE: This is a 84-year-old female initially presented, found to have urinary tract infection. She had acute renal failure in the hospital and creatinine is actually much improved. The patient is now tolerating a diet without difficulty She continues on antibiotics. Renal function and electrolytes are stable Renal ultrasound showed no evidence for hydronephrosis or nephrolithiasis. Blood pressure is under adequate control. She was seen in the medical floor, in no acute distress She states symptoms have greatly improved REVIEW OF SYSTEMS: GENERAL: Negative for any nausea, vomiting, fevers, chills, or weight loss. NEUROLOGIC: Negative for any blurry vision, blind spots, double vision, facial asymmetry, dysphagia, dysarthria, hemiparesis, hemisensory deficits, vertigo, ataxia. HEENT: Negative for any head trauma, neck trauma, neck stiffness, photophobia, phonophobia, sinusitis, rhinitis. CARDIAC: Negative for any chest pain, dyspnea on exertion, paroxysmal nocturnal dyspnea, peripheral edema. PULMONARY: Negative for any shortness of breath, wheezing, COPD, or TB exposure. GASTROINTESTINAL: Negative for any abdominal pain, nausea, vomiting, bright red blood per rectum, melena. GENITOURINARY: Negative for any dysuria, hematuria, incontinence. INTEGUMENTARY: Negative for any rashes, cuts, insect bites. RHEUMATOLOGIC: Negative for any joint pains, photosensitive rashes, history of vasculitis or kidney problems. HEMATOLOGIC: Negative for any abnormal bruising, frequent infections or bleeding. Vital Signs (last 8hr) Date Time Temp Pulse Resp B/P (MAP) Pulse Ox O2 Delivery O2 Flow Rate FiO2 07/07/24 14:54 83 20 07/07/24 12:00 98.1 76 18 125/61 95 Nasal Cannula 2.0 07/07/24 11:05 58 18 150/88 98 Room Air 07/07/24 10:33 90 20 07/07/24 10:32 82 18 21 96 18 21 90 18 28 07/07/24 08:07 95 Nasal Cannula* 3 32 PHYSICAL EXAM: GENERAL: Alert and oriented x 3. No acute distress. Well-nourished. EYES: EOMI. Anicteric. HENT: Moist mucous membranes. No scleral icterus. No cervical lymphadenopathy. LUNGS: Clear to auscultation bilaterally. No accessory muscle use. CARDIOVASCULAR: Regular rate and rhythm. No murmur. No JVD. ABDOMEN: Soft, non-tender and non-distended. No palpable masses. EXTREMITIES: No edema. Non-tender.?SKIN: No rashes or lesions. Warm. NEUROLOGIC: No focal neurological deficits. CN II-XII grossly intact, but not individually tested. PSYCHIATRIC: Cooperative. Appropriate mood and affect. Current Medications Medications (Trade) Dose Ordered Sig/Boris Route PRN Reason Start Time Stop Time Status Last Admin Dose Admin Acetaminophen (TYLenol 500MG TAB) 500 mg Q6H PRN PO MILD PAIN (1-3) 07/04/24 14:30 08/03/24 14:29 Albuterol Sulfate (Proventil 0.083% 2.5mg/3ml) 2.5MG Q6H PRN IH SHORTNESS OF BREATH 07/04/24 14:30 08/03/24 14:29 07/06/24 23:31 2.5 MG Azithromycin 250 ml @ 250 mls/hr Q24H IVPB 07/05/24 14:30 07/15/24 14:29 07/07/24 14:42 250 MLS/HR Famotidine (Pepcid 20mg Vial) 20 mg DAILY IV 07/05/24 09:00 07/04/24 18:34 DC Fluticasone/ Vilanterol (BrEO ELLiptA 200-25 MCG INH) 1 INH DAILY DAILY IH 07/06/24 09:00 08/04/24 08:59 07/07/24 10:39 1 EACH Fluticasone/ Vilanterol (BrEO ELLiptA 200-25 MCG INH) 1 each DAILY IH 07/05/24 09:00 07/05/24 12:19 DC 07/05/24 08:28 1 EACH Home Med (Home Medication) DAILY PO 07/07/24 09:00 08/06/24 08:59 Home Med (Home Medication) (Doxazosin Mesylate 1MG TAB) BID PO 07/04/24 21:00 08/03/24 20:59 07/07/24 10:39 1 EACH Hydralazine HCl (APRESOLine 20MG INJ) 10 mg Q6H PRN IV ADMINISTER FOR SBP > 180 07/04/24 18:00 08/03/24 17:59 Ipratropium [place] (AtrovENT UD) 0.5 MG [id number] IH 07/07/24 02:00 08/06/24 01:59 07/07/24 14:53 0.5 MG Levetiracetam (kepPRA 250 MG TABLET) 250 mg DAILY PO 07/05/24 09:00 08/04/24 08:59 07/07/24 10:35 250 MG Levetiracetam (kepPRA 500 MG TABLET) 500 mg HS PO 07/04/24 21:00 08/03/24 20:59 07/06/24 20:37 500 MG Levothyroxine Sodium (SYNTHroid 25MCG TAB) 25 mcg SYN PO 07/05/24 06:30 08/04/24 06:29 07/07/24 05:46 25 MCG Losartan Potassium (CozAAR 100MG TAB) 100 mg HS PO 07/06/24 21:00 07/07/24 06:09 DC 07/06/24 20:37 100 MG Metoprolol Succinate (TopROL XL) 100 mg BID PO 07/04/24 21:00 08/03/24 20:59 07/07/24 10:35 100 MG Ondansetron HCl (zoFRAN 4MG INJ) 4 mg Q6H PRN IVP NAUSEA/VOMITING 07/04/24 19:00 08/03/24 18:59 Oxybutynin Chloride (ditROPAN XL) 10 mg HS PO 07/04/24 21:00 08/03/24 20:59 07/06/24 20:37 10 MG Pantoprazole Sodium (PROTonix 40MG TAB) 40 mg DAILY PO 07/05/24 09:00 08/04/24 08:59 07/07/24 10:35 40 MG Piperacillin Sod/ Tazobactam Sod (Zosyn 3.375gm+NS 50ml) 3.375 gm Q8H IVPB 07/04/24 18:00 07/14/24 17:59 07/07/24 10:35 3.375 GM Pregabalin ([id number]) 150 mg HS PO 07/04/24 21:00 08/03/24 20:59 07/06/24 20:38 150 MG Raloxifene HCl (Evista) 60 mg DAILY PO 07/05/24 09:00 08/04/24 08:59 07/07/24 10:35 60 MG Simvastatin (zoCOR) 20 mg HS PO 07/04/24 21:00 08/03/24 20:59 07/06/24 20:37 20 MG Sodium Chloride 1,000 ml @ 75 mls/hr [id number] IV 07/04/24 14:30 07/06/24 11:45 DC 07/05/24 18:29 75 MLS/HR LABORATORY: [ ] Hematology Labs: Test 07/07/24 06:03 Range/Units White Blood Count 6.0 4.8-10.8 K/uL Red Blood Count 3.28 L 4.00-5.50 MIL/uL Hemoglobin 9.3 L 12.0-16.0 g/dL Hematocrit 28.9 L 36-48 % Mean Corpuscular Volume 88.1 79-99 fL Mean Corpuscular Hemoglobin 28.4 27.0-33.0 pg Mean Corpuscular Hemoglobin Concent 32.2 32.0-36.0 g/dL Red Cell Distribution Width 13.9 11.0-15.5 % Platelet Count 164 130-400 K/uL Mean Platelet Volume 10.6 H 7.5-10.5 fL Immature Granulocyte % (Auto) 0.3 0-1 % Neutrophils (%) (Auto) 66.0 40.0-77.0 % Lymphocytes (%) (Auto) 14.4 L 21.0-51.0 % Monocytes (%) (Auto) 10.6 3.0-13.0 % Eosinophils (%) (Auto) 8.4 H 0.0-8.0 % Basophils (%) (Auto) 0.3 0.0-5.0 % Neutrophils # (Auto) 4.0 1.8-7.7 K/uL Lymphocytes # (Auto) 0.9 L 1.0-4.8 K/uL Monocytes # (Auto) 0.6 0.1-1.0 K/uL Eosinophils # (Auto) 0.51 0.00-0.70 K/uL Basophils # (Auto) 0.02 0.00-0.20 K/uL Absolute Immature Granulocyte (auto 0.02 0-1 K/uL Nucleated Red Blood Cells 0.0 0.0-0.19 % Chemistry Labs: Test 07/07/24 06:03 07/06/24 05:50 Range/Units Sodium Level 136 136-145 mmol/L Potassium Level 3.7 3.5-5.1 mmol/L Chloride Level 107 101-111 mmol/L Carbon Dioxide Level 28 21-32 mmol/L Blood Urea Nitrogen 12 7-18 mg/dL Creatinine 0.8 0.5-1.0 mg/dL Glomerular Filtration Rate Calc 73 >90 mL/min Random Glucose 94 70-105 mg/dL Total Calcium 7.7 L 8.5-10.1 mg/dL Magnesium Level 1.70 L 1.80-2.40 mg/dL Total Bilirubin 0.4 0.2-1.0 mg/dL Aspartate Amino Transf (AST/SGOT) 12 10-37 U/L Alanine Aminotransferase (ALT/SGPT) 16 12-78 U/L Alkaline Phosphatase 37 L 50-136 U/L Total Protein 7.1 6.0-8.3 g/dL Albumin 1.8 L 3.5-5.0 g/dL Iron Level 14 L 50-170 mcg/dL Total Iron Binding Capacity 169 L 250-450 mcg/dL Percent Iron Saturation 8.2 L 22-44 % DIAGNOSTICS / RADIOLOGY: REASON: apiration pneumonia ORDERING PHYSICIAN: DOMINIQUE BLANC PROCEDURE: CXR1VW - CHEST 1VW CHEST 1VW HISTORY: Aspiration pneumonia COMPARISON: 07/04/2024 FINDINGS: A frontal projection of the chest was obtained. There are bilateral pulmonary infiltrates suggestive of pulmonary vascular congestion with possible superimposed pneumonitis. The heart is borderline enlarged. All the lines and tubes are again seen in place. No evidence of aortic calcification is seen. IMPRESSION: 1. Bilateral pulmonary infiltrates are seen suggestive of pulmonary vascular congestion with possible superimposed pneumonitis. There are bronchiectasis. DICTATED BY: BELLE AREVALO MD DATE: 07/07/24 1258 REASON: generalized weakness ORDERING PHYSICIAN: DAXA SHIN MD PROCEDURE: HEAD WO - CT HEAD/BRAIN W/O CONTRAST CT HEAD/BRAIN W/O CONTRAST HISTORY: Generalized weakness COMPARISON: None TECHNIQUE: Multiple sequential axial images of the head were obtained from the base of the skull through vertex. Patient was not given contrast through intravenous route. FINDINGS: The ventricles and extraventricular CSF spaces are dilated consistent with cerebral atrophy. Nonspecific white matter changes seen. There is no midline shift, mass effect or herniation. No acute intracranial bleed is seen. Visualized portion of the paranasal sinuses are grossly within normal limits. IMPRESSION: 1. No acute intracranial bleed is seen. 2. Atrophy with white matter changes. CT was performed with one or more following dose reduction techniques: automated exposure control, adjustment of the mA and kv according to patient's size, or use of a iterative reconstruction technique. DICTATED BY: BELLE AREVALO MD DATE: 07/04/24 1601 REASON: COUGH ORDERING PHYSICIAN: DUSTY NUÑEZ DO PROCEDURE: CXR1VW - CHEST 1VW CHEST 1VW HISTORY: Cough COMPARISON: 02/29/2024 FINDINGS: A frontal projection of the chest was obtained. Bilateral pulmonary infiltrates are seen with right more than left. The heart is borderline enlarged. Degenerative changes are seen. No evidence of aortic calcification is seen. IMPRESSION: 1. Bilateral pulmonary infiltrates with right more than left. DICTATED BY: BELLE AREVALO MD DATE: 07/04/24 1326 ASSESSMENT: Suspected aspiration pneumonia POA Hiatal hernia with symptomatic nausea vomiting being evaluated outpatient for surgery Dehydration Normocytic anemia GERD Acute kidney injury Hypertension Hyperlipidemia Hypothyroidism History of seizures History of intracranial bleed status post embolization UTI POA PLAN: Labs, diagnostic, radiologic exams reviewed and interpreted by myself and supervising physician. We have reviewed external records in detail Require close monitoring of renal function and electrolytes Order CBC, CMP, and electrolytes in am Continue with antibiotics BiPAP as necessary, for respiratory distress Monitor blood pressure adjust medication doses as needed Avoid hypotensive episodes May use Dilaudid 0.5 mg IV every 6 hours as needed for severe pain Monitor blood sugars Strict intake, output, and daily weight should be monitored Please renally adjust medications Avoid nephrotoxic and nonsteroidal drugs Avoid contrast if possible Will continue to monitor renal function, anemia, electrolytes Treatment plan discussed with patient Questions were answered We have discussed with the other team physicians in detail about the care plan We will continue to monitor the patient closely ATTESTATION BY PHYSICIAN I have seen and examined the patient. I reviewed the documentation, medical decision making, and treatment plan as noted by the mid-level provider above. I agree with the findings and plan of care. TERA SOMMERS MD, ELIZABETH FNP Jul 07, 2024 16:09
--- NOTE | 2024-07-07 16:59 | NUR ---
Nutrition consult per eval Reviewed labs, notes, and medications. Pt w/ no s/s of aspiration per [employer] 07/06/24, barbara valadez, pending d/c, on 2L oxygen, on GI soft/bland diet, iv abx, steroid, Ca 7.7 (L), Mg 1.70 (L) per chart review. Wt via supine scale, 100%PO intake, last bM 07/05/24, no edema, well nourished, no wounds per nursing. Low albumin may be due to inflammation. Recommendations: -Provide GI soft/bland + HH diet -Monitor PO intake -Encourage PO intake as able -Monitor BM -If no BM >3 days consider stool softener -Monitor electrolytes -Replenish electrolytes per protocol -Monitor wts -Reweigh as able -Order Vit D, vit b-12 labs to rule out deficiencies -Provide b-complex QD -Recommend Pt to follow up with PCP -Monitor goals of care RD to follow + available for consult per protocol Addendum: 07/07/24 at [address] Amended: Links added.
--- NOTE | 2024-07-07 18:13 | NUR ---
IV INFILTRATED. ATTEMPTED NEW IV X 3; INFORMED Zan ROWE SUPERVISOR URANIUM PROCESSING THAT PATIENT IS REQUESTIN PO AB SHE IS GOING TO BE DC'D TOMORROW ONCE O2 IS DELIVERED. NEW ORDER GIVEN FOR CEFDINIR 300MG PO BID AND ZITHROMAX 500MG PO DAILY
[2024-07-07] MEDS: CEFDINIR 250MG/5ML 60ML BOTTLE PO SCH (21:30)
[2024-07-08 03:49] VITALS: BP 147/64; PULSE 84; RESP 19; TEMP 97.8
[2024-07-08 06:39] LABS: BASOPHILS # (AUTO) 0.04 K/uL (0.00-0.20); BASOPHILS % (AUTO) 0.8 % (0.0-5.0); EOSINOPHILS # (AUTO) 0.55 K/uL (0.00-0.70); EOSINOPHILS % (AUTO) 10.4 % (0.0-8.0); HEMATOCRIT 28.3 % (36-48); IMMATURE GRANULOCYTE ABSOLUTE 0.01 K/uL (0-1); LYMPHOCYTES # (AUTO) 0.7 K/uL (1.0-4.8); LYMPHOCYTES % (AUTO) 13.1 % (21.0-51.0); MEAN CORPUSCULAR HEMOGLOBIN 28.3 pg (27.0-33.0); MEAN CORPUSCULAR HGB CONC 32.5 g/dL (32.0-36.0); MEAN CORPUSCULAR VOLUME 87.1 fL (79-99); MONOCYTES # (AUTO) 0.6 K/uL (0.1-1.0); MONOCYTES % (AUTO) 10.8 % (3.0-13.0); NEUTROPHILS # (AUTO) 3.4 K/uL (1.8-7.7); NEUTROPHILS % (AUTO) 64.7 % (40.0-77.0); PLATELET COUNT (AUTO) 159 K/uL (130-400); RED BLOOD CELL COUNT(AUTO) 3.25 MIL/uL (4.00-5.50); RED CELL DISTRIBUTION WIDTH 13.6 % (11.0-15.5); WHITE BLOOD COUNT (AUTO) 5.3 K/uL (4.8-10.8)
[2024-07-08 06:58] LABS: ALBUMIN 1.7 g/dL (3.5-5.0); BILIRUBIN,TOTAL 0.3 mg/dL (0.2-1.0); CREATININE 0.8 mg/dL (0.5-1.0); MAGNESIUM 1.7 mg/dL (1.80-2.40); PHOSPHORUS 3.2 mg/dL (2.5-4.9); POTASSIUM 3.6 mmol/L (3.5-5.1); TOTAL PROTEIN, SERUM 6.8 g/dL (6.0-8.3)
[2024-07-08 07:49] VITALS: PULSE 70; RESP 18
[2024-07-08 07:50] VITALS: PULSE 70; RESP 20; O2SAT 96
[2024-07-08 08:00] VITALS: BP 145/61; PULSE 78; RESP 18; TEMP 98; O2SAT 96
[2024-07-08] MEDS: CEFDINIR 250MG/5ML 60ML BOTTLE PO SCH (08:26)
--- NOTE | 2024-07-08 09:03 | PN ---
[facility] PROGRESS NOTE Date of Service: Jul 08, 2024 Time of Service: 09:03 SUBJECTIVE: [ ] 84-year-old female with past medical history of hiatal hernia, hypertension, hyperlipidemia, hypothyroidism, history of seizures, history of intracranial bleed status post embolization who presented to the hospital secondary to cough, generalized fatigue. Patient states her symptoms started today after she had episodes of vomiting. She has a history of hiatal hernia and felt she might have aspirated from the vomiting. She had previously seen a surgeon for the hiatal hernia and was scheduled for a surgical repair next week on . Patient remains in ED holding. Patient is lying in bed she is currently on room air. Breath sounds crackles lower bases. She continues with empiric antibiotics. Tolerating. Daughter at bedside answer all questions appropriately. 07/06/24 patient is lying in bed head of the bed 45 unable to lay flat. Oxygen supplemental at 2 L. Tool Dispatcher's following 07/07/2024 patient is seen and examined patient is sitting in chair waiting for 6 minute walk. It appears patient continues with dyspnea on minimal exertion. Tolerating IV antibiotics waiting for final respiratory cultures. 1330 patient did not pass 6 minute walk we will need home oxygen case management to arranged REVIEW OF SYSTEMS CONSTITUTIONAL: Denies fevers, chills, or night sweats. No unintentional weight loss reported. NEUROLOGICAL: Denies headache, amaurosis fugax, motor weakness, sensory deficit, vertigo/spinning sensation, gait abnormalities, or tremors. ENT: No hearing loss, otalgia, otorrhea, rhinitis, rhinorrhea, hoarseness, or sore throat. CARDIOVASCULAR: Denies any exertional angina, dyspnea on exertion, orthopnea, paroxysmal nocturnal dyspnea, palpitations, life-threatening arrhythmias, claudication. PULMONARY: Positive for cough, shortness of breath, sputum production GASTROINTESTINAL: Positive for nausea, vomiting. Denied any abdominal pain, diarrhea, constipation, melena, hematochezia, hematemesis GENITOURINARY: Denies frequency, urgency, nocturia, hematuria or incontinence (Storage/Irritative symptoms.) Low urinary stream, straining to void, urinary intermittency or hesitancy, splitting of the voiding stream, terminal dribbling. ENDOCRINOLOGIC: Denies polyuria, polydipsia, polyphagia or heat/cold intolerances. HEMATOLOGIC: Denies thrombophilia/previous clots, or coagulopathy/bleeding disorders. ONCOLOGIC: Denies personal history of malignancy. DERMATOLOGIC: Denies rashes or pruritus. PSYCHIATRIC: Denies any suicidal or homicidal ideation. Denies hallucinations. PHYSICAL EXAM GENERAL APPEARANCE: The patient is awake, alert, and oriented, in no acute cardiopulmonary distress. NEUROLOGICAL: Cranial nerves II-XII grossly intact. Motor is 5/5 in bilateral upper and lower extremities proximal to distal. No sensory deficits. HEENT: Face is symmetric. Pupils are equal and reactive. Extraocular movements are intact. NECK: Supple. No JVD. No thyromegaly. No submental, submandibular, pre- /postauricular, occipital or supraclavicular lymphadenopathy. CHEST: Normal chest expansion. No Telemetry. LUNGS: Patient has rales preset bilaterally CARDIOVASCULAR: Regular. S1 and S2 normal. No appreciable rubs, murmurs or gallops. ABDOMEN: Soft, nontender, and nondistended. There is no rebound, voluntary guarding, or rigidity. : Deferred. No Borja. EXTREMITIES: Non-edematous and not cyanotic. No clubbing. Good capillary refill. SKIN: No skin breakdown. Vital Signs (last 8hr) Date Time Temp Pulse Resp B/P (MAP) Pulse Ox O2 Delivery O2 Flow Rate FiO2 07/08/24 08:00 98.1 78 18 145/61 Room Air 07/08/24 07:50 70 20 N/A Room Air 21 07/08/24 07:49 70 18 07/08/24 03:49 97.9 84 19 147/64 95 Nasal Cannula 2.0 LABS: Laboratory: Test 07/08/24 06:35 07/07/24 10:09 07/07/24 06:03 Range/Units White Blood Count 5.3 4.8-10.8 K/uL Red Blood Count 3.25 L 4.00-5.50 MIL/uL Hemoglobin 9.2 L 12.0-16.0 g/dL Hematocrit 28.3 L 36-48 % Mean Corpuscular Volume 87.1 79-99 fL Mean Corpuscular Hemoglobin 28.3 27.0-33.0 pg Mean Corpuscular Hemoglobin Concent 32.5 32.0-36.0 g/dL Red Cell Distribution Width 13.6 11.0-15.5 % Platelet Count 159 130-400 K/uL Mean Platelet Volume 10.9 H 7.5-10.5 fL Immature Granulocyte % (Auto) 0.2 0-1 % Neutrophils (%) (Auto) 64.7 40.0-77.0 % Lymphocytes (%) (Auto) 13.1 L 21.0-51.0 % Monocytes (%) (Auto) 10.8 3.0-13.0 % Eosinophils (%) (Auto) 10.4 H 0.0-8.0 % Basophils (%) (Auto) 0.8 0.0-5.0 % Neutrophils # (Auto) 3.4 1.8-7.7 K/uL Lymphocytes # (Auto) 0.7 L 1.0-4.8 K/uL Monocytes # (Auto) 0.6 0.1-1.0 K/uL Eosinophils # (Auto) 0.55 0.00-0.70 K/uL Basophils # (Auto) 0.04 0.00-0.20 K/uL Absolute Immature Granulocyte (auto 0.01 0-1 K/uL Nucleated Red Blood Cells 0.0 0.0-0.19 % Sodium Level 141 136-145 mmol/L Potassium Level 3.6 3.5-5.1 mmol/L Chloride Level 109 101-111 mmol/L Carbon Dioxide Level 28 21-32 mmol/L Blood Urea Nitrogen 13 7-18 mg/dL Creatinine 0.8 0.5-1.0 mg/dL Glomerular Filtration Rate Calc 73 >90 mL/min Random Glucose 85 70-105 mg/dL Total Calcium 7.9 L 8.5-10.1 mg/dL Phosphorus Level 3.2 2.5-4.9 mg/dL Magnesium Level 1.70 L 1.80-2.40 mg/dL Total Bilirubin 0.3 0.2-1.0 mg/dL Aspartate Amino Transf (AST/SGOT) 11 10-37 U/L Alanine Aminotransferase (ALT/SGPT) 10 L 12-78 U/L Alkaline Phosphatase 37 L 50-136 U/L Total Protein 6.8 6.0-8.3 g/dL Albumin 1.7 L 3.5-5.0 g/dL Blood Gas Specimen Type Arterial Arterial Blood pH 7.447 7.350-7.450 Arterial Blood Partial Pressure CO2 35 32-45 mmHg Arterial Blood Partial Pressure O2 58.1 L 83.0-108.0 mmHg Arterial Blood HCO3 23.5 21.0-28.0 mmol/L Arterial Blood Oxygen Saturation 91.5 L 94.0-98.0 % Arterial Blood Base Excess 0.1 -2.0-3.0 mmol/L Blood Gas Temperature 37.0 35.5-37.0 CELSIUS Blood Gas Vent Mode RA ROOM AIR FiO2 21.0 % Blood Gas Specimen Comment RR MAGGI Vitamin B12 Level 325 193-986 pg/mL Current Medications Medications (Trade) Dose Ordered Sig/Boris Route PRN Reason Start Time Stop Time Status Last Admin Dose Admin Acetaminophen (TYLenol 500MG TAB) 500 mg Q6H PRN PO MILD PAIN (1-3) 07/04/24 14:30 08/03/24 14:29 Albuterol Sulfate (Proventil 0.083% 2.5mg/3ml) 2.5MG Q6H PRN IH SHORTNESS OF BREATH 07/04/24 14:30 08/03/24 14:29 07/06/24 23:31 2.5 MG Azithromycin 250 ml @ 250 mls/hr Q24H IVPB 07/05/24 14:30 07/07/24 18:30 DC 07/07/24 14:42 250 MLS/HR Azithromycin (Zithromax) 500 mg Q24H PO 07/08/24 14:00 07/18/24 13:59 Cefdinir (Cefdinir) 300 mg Q12H PO 07/07/24 21:00 07/08/24 08:19 DC 07/07/24 21:30 300 MG Cefdinir (Cefdinir) 300MG = 6ML Q12H PO 07/08/24 09:00 07/17/24 20:59 07/08/24 08:26 300 MG Famotidine (Pepcid 20mg Vial) 20 mg DAILY IV 07/05/24 09:00 07/04/24 18:34 DC Fluticasone/ Vilanterol (BrEO ELLiptA 200-25 MCG INH) 1 INH DAILY DAILY IH 07/06/24 09:00 08/04/24 08:59 07/08/24 08:31 1 EACH Fluticasone/ Vilanterol (BrEO ELLiptA 200-25 MCG INH) 1 each DAILY IH 07/05/24 09:00 07/05/24 12:19 DC 07/05/24 08:28 1 EACH Home Med (Home Medication) DAILY PO 07/07/24 09:00 08/06/24 08:59 Home Med (Home Medication) (Doxazosin Mesylate 1MG TAB) BID PO 07/04/24 21:00 08/03/24 20:59 07/07/24 21:33 1 EACH Hydralazine HCl (APRESOLine 20MG INJ) 10 mg Q6H PRN IV ADMINISTER FOR SBP > 180 07/04/24 18:00 08/03/24 17:59 Ipratropium [place] (AtrovENT UD) 0.5 MG [id number] IH 07/07/24 02:00 08/06/24 01:59 07/08/24 07:49 0.5 MG Levetiracetam (kepPRA 250 MG TABLET) 250 mg DAILY PO 07/05/24 09:00 08/04/24 08:59 07/08/24 08:27 250 MG Levetiracetam (kepPRA 500 MG TABLET) 500 mg HS PO 07/04/24 21:00 08/03/24 20:59 07/07/24 21:31 500 MG Levothyroxine Sodium (SYNTHroid 25MCG TAB) 25 mcg SYN PO 07/05/24 06:30 08/04/24 06:29 07/08/24 05:39 25 MCG Losartan Potassium (CozAAR 100MG TAB) 100 mg HS PO 07/06/24 21:00 07/07/24 06:09 DC 07/06/24 20:37 100 MG Metoprolol Succinate (TopROL XL) 100 mg BID PO 07/04/24 21:00 08/03/24 20:59 07/08/24 08:27 100 MG Ondansetron HCl (zoFRAN 4MG INJ) 4 mg Q6H PRN IVP NAUSEA/VOMITING 07/04/24 19:00 08/03/24 18:59 Oxybutynin Chloride (ditROPAN XL) 10 mg HS PO 07/04/24 21:00 08/03/24 20:59 07/07/24 21:31 10 MG Pantoprazole Sodium (PROTonix 40MG TAB) 40 mg DAILY PO 07/05/24 09:00 08/04/24 08:59 07/08/24 08:26 40 MG Piperacillin Sod/ Tazobactam Sod (Zosyn 3.375gm+NS 50ml) 3.375 gm Q8H IVPB 07/04/24 18:00 07/07/24 18:32 DC 07/07/24 10:35 3.375 GM Pregabalin ([id number]) 150 mg HS PO 07/04/24 21:00 08/03/24 20:59 07/07/24 21:31 150 MG Raloxifene HCl (Evista) 60 mg DAILY PO 07/05/24 09:00 08/04/24 08:59 07/08/24 08:27 60 MG Simvastatin (zoCOR) 20 mg HS PO 07/04/24 21:00 08/03/24 20:59 07/07/24 21:31 20 MG Sodium Chloride 1,000 ml @ 75 mls/hr [id number] IV 07/04/24 14:30 07/06/24 11:45 DC 07/05/24 18:29 75 MLS/HR DIAGNOSTICS / RADIOLOGY: [ ] ASSESSMENT: Acute respiratory failure requiring oxygen supplemental POA Suspected aspiration pneumonia POA Hiatal hernia with symptomatic nausea vomiting being evaluated outpatient for surgery Dehydration resolved Normocytic anemia GERD Acute kidney injury resolved Hypertension Hyperlipidemia Hypothyroidism History of seizures History of intracranial bleed status post embolization Iron deficiency UTI growing Gram-negative rods PLAN: Admit: Medical-surgical with tele remains ED holding 13 condition: Guarded Status: Full code IVF: Gentle hydration normal saline Consultants payroll manager's, cleaner wall's Antibiotics: Azithromycin IV and Zosyn we will follow-up urine cultures Test: Sputum cultures in process growing 1+ Gram-negative rods Oxygen supplement to keep O2 sats above 92%. 6 minute walk today Bronchodilators Aspiration precautions head of the bed at 45 at all time Speech to eval we will follow recommendations We will monitor H&H trend to keep hemoglobin above 7.0, Labs cbc, cmp, mag+ Replace electrolytes as needed as per protocol to keep potassium above 4.0 magnesium 2.0. Seizures precautions continue Keppra Supportive measures: DVT ppx, GI ppx all questions answered case management: to arrange Home Oxygen Supervising MD: Dr. Vijay Rockwell c/d ATTESTATION BY PHYSICIAN I have seen and examined the patient. I reviewed the documentation, medical decision making, and treatment plan as noted by the mid-level provider above. I agree with the findings and plan of care. CESAR ARCHIBALD MD, ELIZABETH NP Jul 08, 2024 09:03
[2024-07-08 10:14] VITALS: PULSE 82; RESP 18
[2024-07-08] MEDS ORDERED: FLUT1BLS IH (11:00)
[2024-07-08] MEDS ORDERED: CEFD300C3 PO (11:00)
[2024-07-08] MEDS ORDERED: AZIT250T PO (11:00)
--- NOTE | 2024-07-08 11:01 | DS ---
Discharge Summary Hospital Course Summary: 84-year-old female with past medical history of hiatal hernia, hypertension, hyperlipidemia, hypothyroidism, history of seizures, history of intracranial bleed status post embolization who presented to the hospital secondary to cough, generalized fatigue. Patient states her symptoms started today after she had episodes of vomiting. She has a history of hiatal hernia and felt she might have aspirated from the vomiting. She had previously seen a surgeon for the hiatal hernia and was scheduled for a surgical repair next week on . Patient remains in ED holding. Patient is lying in bed she is currently on room air. Breath sounds crackles lower bases. She continues with empiric antibiotics. Tolerating. Daughter at bedside answer all questions appropriately. 07/06/24 patient is lying in bed head of the bed 45 unable to lay flat. Oxygen supplemental at 2 L. Carpenter Assembler's following 07/07/2024 patient is seen and examined patient is sitting in chair patient qualify for home oxygen.t continues with dyspnea on minimal exertion. Patient will be discharged on oral antibiotics. Cefdinir and azithromycin. Patient is scheduled to return to the hospital for her surgery hernia repair she was instructed to be on a clear liquid diet starting today patient was cleared by conveyancer standpoint to discharge home with oral antibiotics in once oxygen is delivered patient is clinically stable. Patient has pending home O2 delivery for discharge however patient was scheduled to returned to this hospital for her surgery, to be cleaned clear liquid diet starting tomorrow. Patient was clear from a pulmonary standpoint to discharge home with oral antibiotics per culture susceptibilities once O2 is delivered. Procedure(s): RUN DATE: 07/08/24 [facility] PAGE 1 RUN TIME: [phone] [address], [place] [address] Department of Laboratories [facility] # [id number] Travel Registered Nurse Pacu: Sneha Alcaraz DO Specimen Report - PATIENT: OMAR BARNARD ACCT: [id number] LOC: 3D U: [id number] AGE/SX: 84/F ROOM: 326 RE07/04/[address]: DAXA SHIN MD : 1940 BED: 1 DIS: STATUS: ADM IN TLOC: SPEC: [id number] LANEY: 07/04/24 STATUS: COMP REQ: [id number] RECD: 07/04/[address]: DAXA SHIN MD SOURCE: SPUTUM ENTR: 07/04/24-[address]: TERA SOMMERS MD SPDESC: TYRONE SOUZA MD, ISRAEL WORTH, RYAN E DO ORDERED: RESP CULTURE Procedure Result My Date-Time GRAM STAIN Final 07/05/24-1436 [facility] GRAM STAIN RESULT: GOOD SPECIMEN [ <10 SEC's/LPF and >25 PMN's/LPF ] FEW GRAM POSITIVE COCCI RARE GRAM NEGATIVE RODS RESPIRATORY CULTURE Final 07/08/24-712 [facility] COLONY DESCRIPTION: REPORT 1: 1+ ORAL DARRYN ; STUDIES TO CONTINUE 1+ GRAM NEGATIVE RODS IDENTIFICATION AND SENSITIVITY TO FOLLOW REPORT 2: SLOW-GROWER; RESULTS PENDING ESCHERICHIA COLI E COLI M.I.C. RX --------- ---- AMPICILLIN >16 R AZTREONAM <=4 S CEFAZOLIN <=2 S CEFTAZIDIME/AVIBACTAM <=8 S CIPROFLOXACIN >2 R GENTAMICIN <=2 S LEVOFLOXACIN >4 R AMPICILLIN/SULBACTAM <=8/4 S MEROPENEM <=1 S PIPERACILLIN/TAZOBACTAM <=8 S TRIMETHOPRIM/SUFLAMETHOXAZOLE >2/38 R @ [facility] Test Performed at: [facility] [address], [place], [place] Medical Material Engineer: Donny Hoover D.O. END OF REPORT RUN DATE: 07/07/24 [facility] PAGE 1 RUN TIME: [address] [address], [place] [address] Department of Laboratories [facility] # [id number] Travel Registered Nurse Pacu: Sneha Alcaraz DO Specimen Report PATIENT: OMAR BARNARD ACCT: [id number] LOC: [facility] U: [id number] AGE/SX: 84/F ROOM: [facility] RE07/04/[address]: DAXA SHIN MD : 1940 BED: 1 DIS: STATUS: ADM IN TLOC: SPEC: [id number] LANEY: 07/04/24 STATUS: RES REQ: [id number] RECD: 07/04/[address]: BELEN GARCIA NP SOURCE: BLOOD ENTR: 07/04/24-1303 [facility] [address]: JESS SANCHEZ SPDC: DUSTY NUÑEZ DO ORDERED: BLOOD CULTURE COMMENTS: What is the Source? BLOOD Procedure Result My Date-Time BLOOD CULT Preliminary 07/07/24-1555 NO GROWTH AFTER 3 DAYS RUN DATE: 07/07/24 [facility] PAGE 1 RUN TIME: [id number] [address], [place] [address] Department of Laboratories CLIA # [id number] Travel Registered Nurse Pacu: Sneha Alcaraz DO Specimen Report PATIENT: OMAR BARNARD ACCT: [id number] LOC: [facility] U: [id number] AGE/SX: 84/F ROOM: [facility] RE07/04/[address]: DAXA SHIN MD : 1940 BED: 1 DIS: STATUS: ADM IN TLOC: SPEC: [id number] LANEY: 07/04/24-1517 STATUS: RES REQ: [id number] RECD: 07/04/24-[address]: BELEN GARCIA NP SOURCE: BLOOD ENTR: 07/04/24-1304 [facility] [address]: JESS SANCHEZ [facility]: DUSTY NUÑEZ DO ORDERED: BLOOD CULTURE COMMENTS: What is the Source? BLOOD Procedure Result My Date-Time BLOOD CULT Preliminary 07/07/24-1530 NO GROWTH AFTER 3 DAYS Assessment/Plan: discharged dx's Acute respiratory failure requiring oxygen supplemental POA Suspected aspiration pneumonia POA Hiatal hernia with symptomatic nausea vomiting being evaluated outpatient for surgery Dehydration resolved Normocytic anemia GERD Acute kidney injury resolved Hypertension Hyperlipidemia Hypothyroidism History of seizures History of intracranial bleed status post embolization Iron deficiency UTI growing Gram-negative rods Ecoli PLAN: ADMISSION DATE: 07/04/24 DISCHARGE DATE: 07/08/2024 DISPOSITION: Home CONDITION: Stable ORGANISATIONAL PSYCHOLOGIST(S): [employer] FOLLOW UP APPOINTMENT(S): [employer] in 1-[address] Bustos PCP 2-[address] Sanchez PROCEDURES: None patient is scheduled for hernia repair outpatient setting we will follow up with Dr. Brown as scheduled. IMAGING (S) report attached to summary : MICROBIOLOGY: report attached to summary; ACTIVITY: Ad kevin with assistance. Requiring home oxygen discharged with nasal cannula 2-3 L. HOME MEDICATIONS remain the same CHANGES ON HOME MEDICATIONS none NEW MEDICATIONS azithromycin 500 mg p.o. x3 days cefdinir 300 mg p.o. b.i.d.. Inhaler BREO as directed TEACHING: Instructed patient on side effects and adverse reactions of new medication. Emergency instructions: The patient was instructed to present to the nearest Emergency Department or call 911 should their symptoms return or worsen. Home Medications: Active Scripts Albuterol Sulfate (Albuterol Sulfate) 2.5 Mg/3 Ml (0.083 %) Vial.neb, 2.5 MG IH [id number] for 10 Days, #120 INH 2 Refills Prov:DILIP OROPEZA MD 03/02/24 Reported Medications Fluticasone/Vilanterol (Breo Ellipta 200-25 Mcg INH) 200 Mcg-25 Mcg/Dose Blst.w.dev, 1 PUFF IH DAILY for 30 Days, #1 EACH 0 Refills 07/04/24 Raloxifene HCl (Evista) 60 Mg Tablet, 1 TAB PO DAILY for 30 Days, #30 TAB 0 Refills 07/04/24 Fluticasone Propionate (Flonase Nasal [place]) 50 Mcg/Actuation [place], 1 SPRAY .AD DAILY 07/04/24 Pregabalin (Pregabalin) 150 Mg Capsule, 1 TAB .AD HS 07/04/24 Oxybutynin Chloride (Oxybutynin Chloride ER) 10 Mg Tab.er.24, 1 TAB HS 07/04/24 Famotidine (Famotidine) 40 Mg Tablet, 1 TAB HS 07/04/24 Torsemide (Torsemide) 10 Mg Tablet, 1 TAB DAILY 07/04/24 Doxazosin Mesylate (Doxazosin Mesylate) 4 Mg Tablet, 1 TAB PO BID 07/04/24 Simvastatin (Simvastatin) 20 Mg Tablet, 1 TAB .AD HS 07/04/24 Levothyroxine Sodium (Levothyroxine Sodium) 25 Mcg Tablet, 1 TAB .AD DAILY 07/04/24 Esomeprazole Magnesium (Esomeprazole Magnesium) 20 Mg Capsule.dr, 1 CAP PO DAILY for acid reflux for 30 Days, #30 CAP 0 Refills 02/28/24 Telmisartan (Telmisartan) 80 Mg Tablet, 80 MG PO PM, TAB 02/28/24 Levetiracetam (Levetiracetam) 250 Mg Tablet, 250 MG PO DAILY, TAB 02/27/24 Levetiracetam (Levetiracetam) 500 Mg Tab.er.24h, 500 MG PO HS, TAB 02/27/24 Metoprolol Succinate (Metoprolol Succinate) 100 Mg Tab.er.24h, 100 MG PO BID, TAB 02/27/24 Discontinued Reported Medications Doxazosin Mesylate (Doxazosin Mesylate) 1 Mg Tablet, 1 MG PO BID, TAB 02/28/24 Metoprolol Succinate (Metoprolol Succinate) 50 Mg Tab.er.24h, 50 MG PO HS, TAB 02/27/24 Fluticasone/Umeclidin/Vilanter (Trelegy Ellipta 200-62.5-25) 200-62.5 Blst.w.dev, 1 PUFF IH DAILY for 30 Days, #60 EACH 0 Refills 02/28/24 Fluticasone Propionate (Fluticasone Propionate) 0.05 % Cream..g., 1 APPL TP DAILY for 30 Days, #60 GM 0 Refills 02/28/24 Levothyroxine Sodium (Levothyroxine) 25 Mcg Capsule, 25 MCG PO ACBKFST, CAP 02/28/24 Discontinued Scripts Methocarbamol (Robaxin) 750 Mg Tab, 500 MG PO BID for 5 Days, #10 TAB Prov:WILEBRTO JUSTICE MD 03/25/24 Omeprazole (Omeprazole) 40 Mg Capsule.dr, 1 CAP PO DAILY for 30 Days, #30 CAP 0 Refills Prov:BELEN GARCIA NP 04/09/24 Ibuprofen (Ibuprofen 800 mg Tab) 800 Mg Tab, 800 MG PO Q8H PRN for fever or pain, #30 TAB 0 Refills Prov:BELEN GARCIA NP 04/09/24 Prednisone (Prednisone) 20 Mg Tablet, 1 TAB PO DAILY for 3 Days, #5 TAB 0 Refills Prov:DILIP OROPEZA MD 03/02/24 Benzonatate (Benzonatate) 100 Mg Capsule, 200 MG PO TID PRN for cough for 7 Days, #21 CAP 1 Refill Prov:DILIP OROPEZA MD 03/02/24 Amoxicillin/Potassium Clav (Amox Tr-K Clv 875-125 mg Tab) 875 Mg-125 Mg Tablet, 1 TAB PO BID for 10 Days, #20 TAB 0 Refills Prov:DILIP OROPEZA MD 03/02/24 Phenazopyridine HCl (Pyridium) 200 Mg Tablet, 200 MG PO TID for painful urination, #10 TAB 0 Refills Prov:BELEN GARCIA NP 04/09/24 Amoxicillin/Potassium Clav (Amox Tr-K Clv 875-125 mg Tab) 875 Mg-125 Mg Tablet, 1 EACH PO BID for 7 Days, #14 TAB 0 Refills Prov:BELEN GARCIA NP 04/09/24 WILLIAM KAPLAN NP Jul 08, 2024 11:01
--- NOTE | 2024-07-08 11:45 | NUR ---
Discharge Plannin has been delivered to patient's room. Pending d/c home.
[2024-07-08 11:57] VITALS: BP 146/72; PULSE 75; RESP 18; TEMP 98.1
--- NOTE | 2024-07-08 12:06 | NUR ---
DISCHARGE DISCHARGE ORDERS FOR PATIENT TO BE DISCHARGED HOME OBTAINED. DISCHARGE INSTRUCTIONS AND DOCUMENTATION GIVEN TO PATIENT. VOICED UNDERSTANDING. NO IV IN PLACE TO DISCONTINUE. BANDS REMOVED. PATIENT STATED WAITING FOR TO PICK HER UP. PATIENT WILL BE TAKEN TO DAY PATIENT DEPARTMENT FOR PRE-OP REGISTRATION FOR PENDING SURGERY WITH DR. ALANIZ.
--- NOTE | 2024-07-08 12:54 | NUR ---
DISCHARGE PATIENT LEFT VIA WHEELCHAIR ACCOMPANIED BY DAUGHTER, NO S/S OF DISTRESS NOTED. PATIENT LEFT AT DAY PATIENT TO REGISTER FOR UPCOMING PROCEDURE.
[2024-07-08] MEDS ORDERED: AZITHROMYCIN 250 MG TABLET PO SCH (14:00)
--- NOTE | 2024-07-08 21:31 | CONS ---
GENERAL SURGERY CONSULTATION NOTE Date/Time Patient Seen: [ ] Requesting Physician: [ ] Reason for Consultation: [ ] History of Present Illness: [ ] Past Medical History: [ ] Past Surgical History: [ ] Family History: [ ] Social History: [ ] Habits: [Never] smoker. [Denies] alcohol consumption. [Denies] illicit drug use Current Medications Medications (Trade) Dose Ordered Sig/Boris Route Start Time Stop Time Status Last Admin Dose Admin Azithromycin 250 ml @ 250 mls/hr Q24H IVPB 07/05/24 14:30 07/07/24 18:30 DC 07/07/24 14:42 250 MLS/HR Azithromycin (Zithromax) 500 mg Q24H PO 07/08/24 14:00 07/08/24 12:54 DC Cefdinir (Cefdinir) 300 mg Q12H PO 07/07/24 21:00 07/08/24 08:19 DC 07/07/24 21:30 300 MG Cefdinir (Cefdinir) 300MG = 6ML Q12H PO 07/08/24 09:00 07/08/24 12:54 DC 07/08/24 08:26 300 MG Famotidine (Pepcid 20mg Vial) 20 mg DAILY IV 07/05/24 09:00 07/04/24 18:34 DC Fluticasone/ Vilanterol (BrEO ELLiptA 200-25 MCG INH) 1 INH DAILY DAILY IH 07/06/24 09:00 07/08/24 12:53 DC 07/08/24 08:31 1 EACH Fluticasone/ Vilanterol (BrEO ELLiptA 200-25 MCG INH) 1 each DAILY IH 07/05/24 09:00 07/05/24 12:19 DC 07/05/24 08:28 1 EACH Home Med (Home Medication) DAILY PO 07/07/24 09:00 07/08/24 12:54 DC Home Med (Home Medication) (Doxazosin Mesylate 1MG TAB) BID PO 07/04/24 21:00 07/08/24 12:53 DC 07/07/24 21:33 1 EACH Ipratropium [place] (AtrovENT UD) 0.5 MG [id number] IH 07/07/24 02:00 07/08/24 12:54 DC 07/08/24 10:10 0.5 MG Levetiracetam (kepPRA 250 MG TABLET) 250 mg DAILY PO 07/05/24 09:00 07/08/24 12:53 DC 07/08/24 08:27 250 MG Levetiracetam (kepPRA 500 MG TABLET) 500 mg HS PO 07/04/24 21:00 07/08/24 12:53 DC 07/07/24 21:31 500 MG Levothyroxine Sodium (SYNTHroid 25MCG TAB) 25 mcg SYN PO 07/05/24 06:30 07/08/24 12:53 DC 07/08/24 05:39 25 MCG Losartan Potassium (CozAAR 100MG TAB) 100 mg HS PO 07/06/24 21:00 07/07/24 06:09 DC 07/06/24 20:37 100 MG Metoprolol Succinate (TopROL XL) 100 mg BID PO 07/04/24 21:00 07/08/24 12:53 DC 07/08/24 08:27 100 MG Oxybutynin Chloride (ditROPAN XL) 10 mg HS PO 07/04/24 21:00 07/08/24 12:53 DC 07/07/24 21:31 10 MG Pantoprazole Sodium (PROTonix 40MG TAB) 40 mg DAILY PO 07/05/24 09:00 07/08/24 12:53 DC 07/08/24 08:26 40 MG Piperacillin Sod/ Tazobactam Sod (Zosyn 3.375gm+NS 50ml) 3.375 gm Q8H IVPB 07/04/24 18:00 07/07/24 18:32 DC 07/07/24 10:35 3.375 GM Pregabalin ([id number]) 150 mg HS PO 07/04/24 21:00 07/08/24 12:53 DC 07/07/24 21:31 150 MG Raloxifene HCl (Evista) 60 mg DAILY PO 07/05/24 09:00 07/08/24 12:53 DC 07/08/24 08:27 60 MG Simvastatin (zoCOR) 20 mg HS PO 07/04/24 21:00 07/08/24 12:53 DC 07/07/24 21:31 20 MG Sodium Chloride 1,000 ml @ 75 mls/hr [id number] IV 07/04/24 14:30 3/2/25 11:45 DC 07/05/24 18:29 75 MLS/HR Review of Systems: CONST: [No fever, fatigue, or weight changes.] EYES: [No recent vision problems.] ENT: [No congestion, ear pain, or sore throat.] C/V: [No chest pain, palpitations, or edema.] RESP: [No cough, congestion, wheezing or shortness of breath.] GI: [No abdominal pain, nausea, vomiting, constipation, or diarrhea.] : [No incontinence or dysuria.] SKIN: [No rash.] NEURO: [No headache, focal numbness or weakness, dizziness, or seizures.] PSYCH: [No depression or anxiety.] HEME: [No abnormal bruising or bleeding.] LYMPH: [No swollen glands.] Physical Examination: GENERAL: [No acute distress.] HEAD: [Normal with no signs of head trauma.] EYES: [PERRLA, EOMI, conjunctiva and sclera normal.] ENT: [Hearing grossly intact, normal oropharynx.] NECK: [Supple without JVD. There is no tenderness, lymphadenopathy, or masses. No thyromegaly. Normal carotid upstrokes without bruits.] LUNGS: [Clear breath sounds bilaterally. There are right basilar rales one third of the way up the chest. No wheezes, or rhonchi.] HEART: [Normal rate and rhythm. Normal S1 and S2 without mumurs, gallop or rub.] VASC: [Peripheral pulses +2 bilaterally.] ABD: [Bowel sounds normal, soft, nontender, no masses, no organomegaly. No audible bruits.] : [Not examined] LYMPH: [No lymphadenopathy noted.] EXT: [No clubbing, cyanosis or edema.] SKIN: [No rashes or lesions noted.] NEURO: [Awake, alert, and oriented x3. No focal sensory or strength deficits noted.] Laboratory: [ ] Hematology Labs: Test 07/08/24 06:35 Range/Units White Blood Count 5.3 4.8-10.8 K/uL Red Blood Count 3.25 L 4.00-5.50 MIL/uL Hemoglobin 9.2 L 12.0-16.0 g/dL Hematocrit 28.3 L 36-48 % Mean Corpuscular Volume 87.1 79-99 fL Mean Corpuscular Hemoglobin 28.3 27.0-33.0 pg Mean Corpuscular Hemoglobin Concent 32.5 32.0-36.0 g/dL Red Cell Distribution Width 13.6 11.0-15.5 % Platelet Count 159 130-400 K/uL Mean Platelet Volume 10.9 H 7.5-10.5 fL Immature Granulocyte % (Auto) 0.2 0-1 % Neutrophils (%) (Auto) 64.7 40.0-77.0 % Lymphocytes (%) (Auto) 13.1 L 21.0-51.0 % Monocytes (%) (Auto) 10.8 3.0-13.0 % Eosinophils (%) (Auto) 10.4 H 0.0-8.0 % Basophils (%) (Auto) 0.8 0.0-5.0 % Neutrophils # (Auto) 3.4 1.8-7.7 K/uL Lymphocytes # (Auto) 0.7 L 1.0-4.8 K/uL Monocytes # (Auto) 0.6 0.1-1.0 K/uL Eosinophils # (Auto) 0.55 0.00-0.70 K/uL Basophils # (Auto) 0.04 0.00-0.20 K/uL Absolute Immature Granulocyte (auto 0.01 0-1 K/uL Nucleated Red Blood Cells 0.0 0.0-0.19 % Chemistry Labs: Test 07/08/24 06:35 07/07/24 06:03 Range/Units Sodium Level 141 136-145 mmol/L Potassium Level 3.6 3.5-5.1 mmol/L Chloride Level 109 101-111 mmol/L Carbon Dioxide Level 28 21-32 mmol/L Blood Urea Nitrogen 13 7-18 mg/dL Creatinine 0.8 0.5-1.0 mg/dL Glomerular Filtration Rate Calc 73 >90 mL/min Random Glucose 85 70-105 mg/dL Total Calcium 7.9 L 8.5-10.1 mg/dL Phosphorus Level 3.2 2.5-4.9 mg/dL Magnesium Level 1.70 L 1.80-2.40 mg/dL Total Bilirubin 0.3 0.2-1.0 mg/dL Aspartate Amino Transf (AST/SGOT) 11 10-37 U/L Alanine Aminotransferase (ALT/SGPT) 10 L 12-78 U/L Alkaline Phosphatase 37 L 50-136 U/L Total Protein 6.8 6.0-8.3 g/dL Albumin 1.7 L 3.5-5.0 g/dL Vitamin B12 Level 325 193-986 pg/mL Diagnostics / Radiology: [Copy/Paste Echos/Imaging Report here] Assessment: [ ] Plan: [ ] FADI [facility]ARR[facility] Jul 08, 2024 21:30
--- NOTE | 2024-07-08 23:05 | PN ---
[facility] PROGRESS NOTE Date Patient Seen: Jul 08, 2024 Time of Visit: 23:00 Supervising Physician: FER RICHARDSON MD Supervising Physician: Dr. Fer Bustos PROBLEM LIST: Aspiration pneumonia on admission Hiatal hernia, symptomatic GERD HTN Hypothyroidism Epilepsy Acute cystitis on admission Iron deficiency anemia INTERVAL HISTORY: Patient seen and evaluated, awake, alert and following commands Remains on room air, no fevers, no chills good appetite, no diarrhea occasional cough, no phlegm, no hemoptysis no seizures reported overall, doing well Plan is for patient to be discharged today and will return on for elective hiatal hernia repair REVIEW OF SYSTEMS: 12 point ROS reviewed with patient. Pertinent positives mentioned above. Otherwise negative. PHYSICAL EXAM: GENERAL: alert, weak, awake oriented x 3 HEENT: EOMI, Sclera non icteric, moist mucosa NECK: Supple, no JVD, trachea midline LUNGS: Clear breath sounds bilaterally. No wheezes HEART: Regular rate and rhythm. Normal S1 and S2, without murmurs ABD: Abdomen soft, nontender. Bowel sounds present EXT: No clubbing cyanosis or edema NEURO: Alert and oriented to person, follows commands LABS: Hematology Labs: Test 07/08/24 06:35 Range/Units White Blood Count 5.3 4.8-10.8 K/uL Red Blood Count 3.25 L 4.00-5.50 MIL/uL Hemoglobin 9.2 L 12.0-16.0 g/dL Hematocrit 28.3 L 36-48 % Mean Corpuscular Volume 87.1 79-99 fL Mean Corpuscular Hemoglobin 28.3 27.0-33.0 pg Mean Corpuscular Hemoglobin Concent 32.5 32.0-36.0 g/dL Red Cell Distribution Width 13.6 11.0-15.5 % Platelet Count 159 130-400 K/uL Mean Platelet Volume 10.9 H 7.5-10.5 fL Immature Granulocyte % (Auto) 0.2 0-1 % Neutrophils (%) (Auto) 64.7 40.0-77.0 % Lymphocytes (%) (Auto) 13.1 L 21.0-51.0 % Monocytes (%) (Auto) 10.8 3.0-13.0 % Eosinophils (%) (Auto) 10.4 H 0.0-8.0 % Basophils (%) (Auto) 0.8 0.0-5.0 % Neutrophils # (Auto) 3.4 1.8-7.7 K/uL Lymphocytes # (Auto) 0.7 L 1.0-4.8 K/uL Monocytes # (Auto) 0.6 0.1-1.0 K/uL Eosinophils # (Auto) 0.55 0.00-0.70 K/uL Basophils # (Auto) 0.04 0.00-0.20 K/uL Absolute Immature Granulocyte (auto 0.01 0-1 K/uL Nucleated Red Blood Cells 0.0 0.0-0.19 % Chemistry Labs: Test 07/08/24 06:35 07/07/24 06:03 Range/Units Sodium Level 141 136-145 mmol/L Potassium Level 3.6 3.5-5.1 mmol/L Chloride Level 109 101-111 mmol/L Carbon Dioxide Level 28 21-32 mmol/L Blood Urea Nitrogen 13 7-18 mg/dL Creatinine 0.8 0.5-1.0 mg/dL Glomerular Filtration Rate Calc 73 >90 mL/min Random Glucose 85 70-105 mg/dL Total Calcium 7.9 L 8.5-10.1 mg/dL Phosphorus Level 3.2 2.5-4.9 mg/dL Magnesium Level 1.70 L 1.80-2.40 mg/dL Total Bilirubin 0.3 0.2-1.0 mg/dL Aspartate Amino Transf (AST/SGOT) 11 10-37 U/L Alanine Aminotransferase (ALT/SGPT) 10 L 12-78 U/L Alkaline Phosphatase 37 L 50-136 U/L Total Protein 6.8 6.0-8.3 g/dL Albumin 1.7 L 3.5-5.0 g/dL Vitamin B12 Level 325 193-986 pg/mL DIAGNOSTICS / RADIOLOGY RESULTS: [ Reviewed ] PLAN patient may be discharged from pulmonary standpoint plan to follow on for hiatal hernia repair NEURO: Minimize central acting medications as possible. Maintain fall precautions, adequate lighting during the day PULMONARY: Supplemental 02 as needed. Maintain aspiration precautions at all times CARDIOVASCULAR: Follow hemodynamics. Vital signs per facility protocol GI & NUTRITION: Continue with nutritional support. Continue stool softeners and laxatives as needed. KIDNEYS & ELECTROLYTES: Strict monitoring of intake, output and overall fluid balance. Avoid nephrotoxic medications to the extent possible. Medications to be dosed according to renal function. Monitor electrolytes and replace as needed ENDOCRINE: Maintain blood glucose between 100-180 at all times. Hypoglycemia protocol in place INFECTIOUS DISEASE: Trend temperature, WBC and procalcitonin level Follow cultures, deescalate antibiotics as soon as possible. Panculture if new onset fever ONCOLOGY/HEMATOLOGY/COAGULATION: Monitor for s/s of bleeding Monitor hemoglobin, coagulation studies as needed SKIN: Pressure ulcer prevention per facility protocol Specialty mattress ORTHO/REHAB: Continue PT/OT Prophylaxis: Continue GI and DVT prophylaxis Code Status: Full Resuscitation Disposition: as per PCP I personally scribed for FER THEODORE MD ([email or web address]) on 07/08/24 at 23:05. Electronically submitted by Erik Jacobsen ([email or web address]). FER THEODORE MD Jul 08, 2024 23:05
--- NOTE | 2024-07-09 02:31 | PN ---
NEPHROLOGY NOTE SUBJECTIVE: This patient has multiple problems including acute on chronic renal failure and anemia. The patient has underlying history of hypertension, hyperlipidemia, hypothyroidism, seizure, previous intracranial bleed. The patient has plan for home oxygen. Some shortness of breath is still persistent. The patient is on antibiotics for possible pneumonia. All the other systemic review is unchanged. No other associated finding. No other aggravating or relieving factors. No other associated symptoms. PHYSICAL EXAMINATION: GENERAL: Pale, no other distress. VITAL SIGNS: Blood pressure 145/61, pulse 78, respiratory rate is 18, afebrile. HEENT: Head is atraumatic. Pupils are round and reactive. Sclerae are anicteric. Conjunctivae are not pale. Oral mucosa is not dry. NECK: Supple. No masses or bruits. Thyroid is palpable. Neck has no bruits. CHEST: Shows equal thoracic percussion note being resonant in all areas. CARDIAC: Regular rhythm. No rub, no S3 or S4. No parasternal heave. LABORATORY DATA: We have reviewed labs in detail and old records reviewed. Imaging studies are reviewed. Labs have shown BUN of 13, creatinine 0.8 now, very low magnesium of 1.7. The patient has low albumin of 1.7. PROBLEMS: Renal dysfunction, anemia, electrolyte problems. The patient has hypertension. PLAN: To continue monitoring. Follow up on renal function. Follow up on electrolytes. The patient will need . I have discussed with other team members. TID: [id number] RECEIPT: [id number] [facility]
== END 2024-07-08 12:48 | disposition home or self-care (01) | DRG 177 ==
LOC: EDH 10:09 → EDHIP 14:11 → 3DH 07-05 22:38
PROVIDERS: ADMIT Internal Medicine; ATTEND Internal Medicine
DX: J69.0 Pneumonitis due to inhalation of food and vomit (principal); J96.01 Acute respiratory failure with hypoxia; N17.9 Acute kidney failure, unspecified; N30.00 Acute cystitis without hematuria; J47.0 Bronchiectasis with acute lower respiratory infection; K44.9 Diaphragmatic hernia without obstruction or gangrene; E86.0 Dehydration; K21.9 Gastro-esophageal reflux disease without esophagitis; E78.00 Pure hypercholesterolemia, unspecified; E03.9 Hypothyroidism, unspecified; N18.9 Chronic kidney disease, unspecified; J45.909 Unspecified asthma, uncomplicated; G40.909 Epilepsy, unspecified, not intractable, without status epilepticus; D50.9 Iron deficiency anemia, unspecified; R62.7 Adult failure to thrive; R73.9 Hyperglycemia, unspecified; E86.9 Volume depletion, unspecified; I12.9 Hypertensive chronic kidney disease with stage 1 through stage 4 chronic kidney disease, or unspecified chronic kidney disease; Z88.6 Allergy status to analgesic agent; Z86.73 Personal history of transient ischemic attack (TIA), and cerebral infarction without residual deficits; Z79.899 Other long term (current) drug therapy
CPT/HCPCS: 36415; 36600; 70450; 71045; 76770; 80048; 80053; 81001; 82306; 82435; 82570; 82607; 82803; 82947; 83540; 83550; 83605; 83690; 83735; 84100; 84132; 84295; 84300; 84484; 85018; 85025; 87040; 87071; 87086; 87186; 87205; 87804; 87880; 92610; 93005; 94640; 94664; 94760; 96365; 96368; 96375; 99291; G0378; J0456; J0696; J1756; J2543; J3490; J7050

== ENCOUNTER 2024-07-31 09:43 | Observation (INO) | payer MEDICARE ==
[2024-07-29 14:22] VITALS: BP 138/73; PULSE 68; RESP 18; TEMP 97.5
[2024-07-29 14:26] LABS: BASOPHILS # (AUTO) 0.07 K/uL (0.00-0.20); BASOPHILS % (AUTO) 1.3 % (0.0-5.0); EOSINOPHILS # (AUTO) 0.78 K/uL (0.00-0.70); EOSINOPHILS % (AUTO) 14.6 % (0.0-8.0); HEMATOCRIT 35.5 % (36-48); IMMATURE GRANULOCYTE ABSOLUTE 0.02 K/uL (0-1); LYMPHOCYTES # (AUTO) 0.8 K/uL (1.0-4.8); LYMPHOCYTES % (AUTO) 15.7 % (21.0-51.0); MEAN CORPUSCULAR HEMOGLOBIN 28.5 pg (27.0-33.0); MEAN CORPUSCULAR HGB CONC 31.8 g/dL (32.0-36.0); MEAN CORPUSCULAR VOLUME 89.4 fL (79-99); MONOCYTES # (AUTO) 0.4 K/uL (0.1-1.0); MONOCYTES % (AUTO) 8.2 % (3.0-13.0); NEUTROPHILS # (AUTO) 3.2 K/uL (1.8-7.7); NEUTROPHILS % (AUTO) 59.8 % (40.0-77.0); PLATELET COUNT (AUTO) 113 K/uL (130-400); RED BLOOD CELL COUNT(AUTO) 3.97 MIL/uL (4.00-5.50); RED CELL DISTRIBUTION WIDTH 13.8 % (11.0-15.5); WHITE BLOOD COUNT (AUTO) 5.3 K/uL (4.8-10.8)
[2024-07-29 14:34] LABS: CREATININE 1.2 mg/dL (0.5-1.0); POTASSIUM 3.8 mmol/L (3.5-5.1)
[2024-07-29 14:44] LABS: INR 1.01 (0.85-1.15); PROTHROMBIN TIME 10.7 SEC (9.6-11.6)
[2024-07-29 14:46] LABS: PARTIAL THROMBOPLASTIN TIME 27.1 SEC (26.3-35.5)
--- NOTE | 2024-07-30 12:44 | NUR ---
REPORT REPORTED EKG AND BMP TO DR LÓPEZ. OK TO PROCEED
[~2024-07-31] VITALS: Ht 152.4 cm; Wt 77.4 kg
[2024-07-31] VITALS (24 sets, daily range): BP systolic 119–185; BP diastolic 20–81; PULSE 60–90; RESP 12–20; TEMP 97.2–98.2; O2SAT 96–98
[~2024-07-31 09:43] MED LIST changes: -ALBU2.5V2 IH; -AMOX1TAB16 PO; +ASPI-1197 PO; -BENZ-226 PO; +CALCIUM PO; +CETI-89 PO; -DOXA1TAB2 PO; +DOXA8TAB81 PO; -ESOM20CA51 PO; +ESOM40CA66 PO; +FAMO40TA7; +FERR-82 PO; +FLUT16H NS; +FLUT1BLS IH; -FLUT1BLS15 IH; -FLUT30CR TP; -IBUP-2077 PO; +LEVE-21 PO; -LEVE500T98 PO; -LEVO25CA4 PO; +LEVO25TA54 PO; +MAGN400C PO; -METH-662 PO; -METO-391 PO; +MONT-47 PO; +MULT-1367 PO; -OMEP40CA21 PO; -PHEN-776 PO; -PRED20TA3 PO; +PREG150C PO; +RALO60 PO; +SIMV-43 PO; +SULF1TAB42 PO; +TORS10TA18 PO; +UBID100C10 PO; +VITA1CAP85 PO; +VITAMIN D PO
[2024-07-31] MEDS: ceFAZolin SODIUM 2 GM VIAL ONE (10:43)
[2024-07-31] MEDS: 0.9%NACL 1000ML 1,000 ML IV ONE (10:43)
[2024-07-31] MEDS: FAMOTIDINE 20MG VIAL IV ONE (11:15)
[2024-07-31] MEDS: IpraTROPium/alBUTERol SULFATE 3 ML SOLUTION IH ONE (11:32)
--- NOTE | 2024-07-31 12:55 | EKG ---
[facility] Test Date: 2024-07-29 Test Time: 14:18:11 Pat Name: OMAR BARNARD Department: [facility] Room: 406 Gender: F Disaster Recovery Analyst: [id number] Requested By: ZOLTAN ALANIZ Order Number: [id number] Reading MD: Zoltan Weaver Measurements Intervals [place] Rate: 54 P: 30 CA: 197 QRS: -23 QRSD: 96 T: 12 QT: 456 QTc: 435 Interpretive Statements Sinus rhythm Possible septal MN Compared to ECG 07/04/2024 10:23:07 No significant changes Electronically Signed On 08-01-2024 14:38:20 CDT by Zoltan Weaver Please click the below link to view image of tracing.
[2024-07-31] MEDS: acetaMINOPHEN 100 ML ONE (13:51)
[2024-07-31] MEDS ORDERED: BUPIvacaine/PF 0.25% 30ML VIAL IJ ONE (13:52)
[2024-07-31] MEDS ORDERED: proPOFol 10 MG/ML 20ML VIAL IV ONE (13:54)
[2024-07-31] MEDS ORDERED: dexaMETHasone SOD PHOSPHATE 10MG/ML 1ML VIAL ONE (13:54)
[2024-07-31] MEDS ORDERED: LIDOCAINE PF 100MG/5ML (2%) SYRINGE 5ML ONE (13:54)
[2024-07-31] MEDS ORDERED: SUCCINYLCHOLINE CHLORIDE 20 MG/ML 10 ML VIAL ONE (13:55)
[2024-07-31] MEDS ORDERED: GLYCOPYRROLATE 0.2 MG/ML 5 ML VIAL ONE (13:55)
[2024-07-31] MEDS ORDERED: MIDAZOLAM HCL 1 MG/ML 2ML VIAL ONE (13:55)
[2024-07-31] MEDS ORDERED: ondanSETRON 4MG INJ ONE (13:55)
[2024-07-31] MEDS ORDERED: NEOSTIGMINE METHYLSULFATE 1MG/ML IV ONE (13:55)
[2024-07-31] MEDS ORDERED: FENTanyl CITRate PF 50 MCG/1 ML 2ML VIAL ONE (13:55)
[2024-07-31] MEDS ORDERED: ketaMINE 50MG/ML SYRINGE 50 MG/ML DISP.SYRIN ONE (13:59)
[2024-07-31] MEDS: ceFAZolin SODIUM 2 GM VIAL IVPB ONE (14:20)
[2024-07-31] MEDS ORDERED: BUPIvacaine/PF 0.5% 30ML VIAL ONE (14:29)
[2024-07-31] MEDS ORDERED: ALBUMIN (HUMAN) 5% 250 ML IV ONE (14:49)
[2024-07-31] MEDS ORDERED: FENTanyl CITRate PF 50 MCG/1 ML 5ML AMP IV ONE (14:49)
[2024-07-31] MEDS: SUGAMMADEX SODIUM 200 MG/2 ML VIAL IV ONE (16:06)
--- NOTE | 2024-07-31 16:08 | OP ---
Operative Note: DATE OF PROCEDURE: 07/31/24 SURGEON: ZOLTAN ALANIZ MD YARDER PUNCHER: Marcus Alaniz MD p.a. C ANESTHESIA: General and local ANESTHESIOLOGIST/WORLD LANGUAGE TEACHER[place] [facility] [place] PREOPERATIVE DIAGNOSIS: Large paraesophageal hiatal hernia with incarcerated stomach POSTOPERATIVE DIAGNOSIS: As above SYNOPSIS: Paraesophageal hiatal hernia repair with mesh reinforcement an anterior fundoplication undertaken without known complication PROCEDURE: 1. Robotic assisted paraesophageal hiatal hernia repair with a mesh reinforcement 2. Anterior partial fundoplication 3. EGD ESTIMATED BLOOD LOSS: Minimal, less than 30 cc INDICATIONS: As above DESCRIPTION OF PROCEDURE: After standard precautions and preparations were undertaken a Veress needle and optical trocar were used to enter the abdominal cavity. All other instruments were placed under direct vision. The robotic system was docked in the standard fashion. We began our dissection by opening pars flaccida and identifying the right amina of the diaphragm. We are able to eventually work our way into a nearly avascular plane within the mediastinum and carried this dissection circumferentially after incising the paraesophageal hiatal hernia sac in multiple locations. Patient's hernia was unusually large greater than 10-12 cm in greatest dimension. The muscles were extremely even treated and thinned and the condition of the tissue was poor. Once we are able to reduce the hernia contents back into the abdominal cavity and the GE junction was resting at the level of the hiatus without tension we performed our repair. We sutured right and left crura back into reapproximation starting at the crossing fibers and we are going to way upwards towards the posterior esophageal wall. Because of the size of the hernia we had to close an anterior portion as well. This was completed with suture and then mesh reinforcement was used both inferiorly and superiorly. The mesh was a slowly absorbable two sided Bard product that was sutured in place to prevent mesh migration. We then performed an anterior partial fundoplication in order to minimize GERD p ostprocedure. Once this was complete the EGD scope was utilized to visualize the anatomy including the location of the GE junction as well as to ensure that the wrap and hiatal hernia closure were not overly tightened. All the anatomy appeared healthy and appropriate. The distal esophagus and proximal stomach were well perfused. All instrument counts were verified as correct prior to ending the case including needles and sponges. ZOLTAN ALANIZ MD Jul 31, 2024 16:08
--- NOTE | 2024-07-31 16:41 | PN ---
GENERAL SURGERY PROGRESS NOTE Date/Time Patient Seen: [07/31/2024 at 4:30 p.m. ] Problem List: [ ] Interval History: [ Postop day 0. Pain tolerable with p.r.n. medication.] Physical Examination: ABD: [Incisions clean, dry and intact, Dermabond in place Vital Signs (last 8hr) Date Time Temp Pulse Resp B/P (MAP) Pulse Ox O2 Delivery O2 Flow Rate FiO2 07/31/24 11:38 60 07/31/24 10:30 97.2 62 18 149/56 95 Room Air 21 Laboratory: [ ] Chemistry Labs: Test 07/31/24 10:41 Range/Units Whole Blood Glucose 72 70-110 MG/DL Diagnostics / Radiology: [Copy/Paste Echos/Imaging Report here] Impression and Plan: [Postop day 0. Plan is for discharge home in the next day or2 as long as patient is tolerating p.o., ambulatory and pain under control. Discussed with patient and family. They understand and agree. ] EDILBERTO ALANIZ Jul 31, 2024 16:41
[2024-07-31] MEDS ORDERED: PROCHLORPERAZINE 10MG/2ML INJ IV PRN (17:00)
[2024-07-31] MEDS ORDERED: ondanSETRON 4MG INJ IVP PRN (17:00)
[2024-07-31] MEDS: ENOXAPARIN SODIUM 30 MG/0.3 ML SQ SCH (18:21)
[2024-07-31] MEDS: LACTATED RINGERS 1000ML 1,000 ML IV SCH (18:21)
[2024-07-31] MEDS: hydroMORPHone 1 MG INJ IVP PRN (18:22)
[2024-07-31] MEDS: ketOROlac 15MG/ML VIAL (15MG/ML) IV PRN (21:47)
[2024-08-01] VITALS (7 sets, daily range): BP systolic 127–171; BP diastolic 61–71; PULSE 73–85; RESP 18–20; TEMP 97.4–98.9; O2SAT 95
[2024-08-01] MEDS: FAMOTIDINE 20MG VIAL IV SCH (09:07)
[2024-08-01] MEDS: HYDROcod/acetaMINOPHEN 7.5/325 MG 15 ML UDCUP PO PRN (10:52)
--- NOTE | 2024-08-01 14:33 | NUR ---
DCP: HOME Pt states she is "sorta a [place]", she has home in [facility] and a mobile home in [place]. Pt spends most of her time in [place]. "I am completely independent". I can do everything for myself, drive, cook,, keep my house. " Pt reports she has had dbl pneumonia for past month and has O2 at home "just in case". Pt has cane and walker she uses as needed outside he home. No HH or HD services at this time. PCP is Roxane Sanchez and uses [facility] in [facility] for rx. Kathy to [place]. [facility] Hui Gonzalez [phone]. Addendum: 08/01/24 at 1444 by AKILAH BECERRA Amended: Links added.
[2024-08-01] MEDS: SIMETHICONE 80 MG TAB.CHEW PO SCH (15:44)
--- NOTE | 2024-08-01 15:47 | PN ---
GENERAL SURGERY PROGRESS NOTE Date/Time Patient Seen: 08/01/24 Problem List: large paraesophageal hiatal hernia with incarcerated stomach Interval History: This is an 84-year-old female with past medical history of large paraesophageal hiatal hernia with incarcerated stomach who underwent robotic assisted paraesophageal hiatal hernia repair with mesh reinforcement and anterior partial fundoplication. Current Medications Medications (Trade) Dose Ordered Sig/Boris Route Start Time Stop Time Status Last Admin Dose Admin Enoxaparin Sodium (Lovenox) 30 mg Q24H SQ 07/31/24 17:30 08/30/24 17:29 07/31/24 18:21 30 MG Famotidine (Pepcid 20mg Vial) 20 mg QODAY IV 08/01/24 09:00 08/31/24 08:59 08/01/24 09:07 20 MG Lactated Ringer's 1,000 ml @ 150 mls/hr Q6H40M IV 07/31/24 17:00 08/01/24 10:35 DC 07/31/24 18:21 150 MLS/HR Simethicone (Mylicon) 160 mg PCHS PO 08/01/24 13:00 08/31/24 12:59 08/01/24 15:44 160 MG Physical Examination: GENERAL: [No acute distress.] HEAD: [Normal with no signs of head trauma.] EYES: [PERRLA, EOMI, conjunctiva and sclera normal.] ENT: [Hearing grossly intact, normal oropharynx.] NECK: [Supple without JVD. There is no tenderness, lymphadenopathy, or masses. No thyromegaly. Normal carotid upstrokes without bruits.] LUNGS: [Clear breath sounds bilaterally. There are right basilar rales one third of the way up the chest. No wheezes, or rhonchi.] HEART: [Normal rate and rhythm. Normal S1 and S2 without mumurs, gallop or rub.] VASC: [Peripheral pulses +2 bilaterally.] ABD: [Bowel sounds normal, soft, nontender, no masses, no organomegaly. No audible bruits.] : [Not examined] LYMPH: [No lymphadenopathy noted.] EXT: [No clubbing, cyanosis or edema.] SKIN: [No rashes or lesions noted.] NEURO: [Awake, alert, and oriented x3. No focal sensory or strength deficits noted.] Vital Signs (last 8hr) Date Time Temp Pulse Resp B/P (MAP) Pulse Ox O2 Delivery O2 Flow Rate FiO2 08/01/24 12:00 99.0 77 20 127/68 96 Nasal Cannula 2.0 08/01/24 08:00 97.9 81 18 152/65 95 Room Air Laboratory: [ ] Chemistry Labs: Test 07/31/24 10:41 Range/Units Whole Blood Glucose 72 70-110 MG/DL Diagnostics / Radiology: [Copy/Paste Echos/Imaging Report here] Impression and Plan: [Postop day 1. Plan is for discharge home in the next day or2 as long as patient is tolerating p.o., ambulatory and pain under control. Discussed with patient and family. They understand and agree. ] FADI [facility]K CONTROL CONSULTANT Aug 01, 2024 15:47
[2024-08-01] MEDS: LoSARTan 100 MG TABLET PO SCH (20:36)
[2024-08-01] MEDS: metOPROLol sucCINATE 50 MG TAB.SR.24H PO SCH (20:36)
[2024-08-01] MEDS: leveTIRACEtam 500 MG TABLET PO SCH (20:36)
[2024-08-02] VITALS: BP 154/67; PULSE 73; RESP 18; TEMP 99.2
[2024-08-02 04:00] VITALS: BP 160/61; PULSE 81; RESP 22; TEMP 98.2
[2024-08-02] MEDS: levoTHYROxine 25 MCG TABLET PO SCH (06:01)
[2024-08-02 08:00] VITALS: BP 162/65; PULSE 58; RESP 16; TEMP 97.5; O2SAT 97
[2024-08-02] MEDS: leveTIRACEtam 250 MG TABLET PO SCH (08:10)
[2024-08-02 12:00] VITALS: BP 169/70; PULSE 60; RESP 16; TEMP 97.7
--- NOTE | 2024-08-02 14:15 | DS ---
Discharge Summary HOSPITAL COURSE SUMMARY: This is an 84-year-old female with past medical history of large paraesophageal hiatal hernia with incarcerated stomach who underwent robotic assisted paraesophageal hiatal hernia repair with mesh reinforcement and anterior partial fundoplication. BUSINESS LOAN PROCESSOR(S): None PROCEDURES: [Paraesophageal hiatal hernia repair with mesh reinforcement an anterior fundoplication undertaken without known complication PROCEDURE: 1. Robotic assisted paraesophageal hiatal hernia repair with a mesh reinforcement 2. Anterior partial fundoplication 3. EGD PROBLEM(S): [large paraesophageal hiatal hernia with incarcerated stomach DISCHARGE INSTRUCTIONS: Follow post op diet Home Meds Active Scripts Fluticasone/Vilanterol (Breo Ellipta 200-25 Mcg INH) 200 Mcg-25 Mcg/Dose Blst.w.dev, 1 EACH IH DAILY for 30 Days, #1 INHALER 0 Refills Prov:WILLIAM KAPLAN ROLL MILL OPERATOR 07/08/24 Reported Medications Sulfamethoxazole/Trimethoprim (Bactrim Ds Tablet) 800 Mg-160 Mg Tablet, 1 TAB PO HS, TAB 07/29/24 Aspirin (Aspirin) 81 Mg Tab.chew, 81 MG PO HS, TAB.CHEW 07/29/24 Cetirizine HCl (Zyrtec) 10 Mg Tablet, 1 TAB PO HS for allergy symptoms for 30 Days, #30 TAB 0 Refills 07/29/24 Doxazosin Mesylate (Doxazosin Mesylate) 8 Mg Tablet, 8 MG PO HS, TAB 07/29/24 Telmisartan (Telmisartan) 80 Mg Tablet, 80 MG PO HS, TAB 07/29/24 Torsemide (Torsemide) 10 Mg Tablet, 10 MG PO DAILY PRN for SWELLING, TAB 07/29/24 Multivitamin (Multivitamin) 1 Each Tablet, 1 TAB PO DAILY for 30 Days, #30 TAB 0 Refills 07/29/24 Magnesium Oxide (Magnesium) 400 Mg Magnesium Capsule, 400 MG PO DAILY, CAP 07/29/24 Ubidecarenone (Coq-10) 100 Mg Capsule, 200 MG PO DAILY, CAP 07/29/24 Vitamin B Complex (Vitamin B Complex) 1 Each Capsule, 1 EACH PO DAILY, CAP 07/29/24 [Calcium] No Conflict Check, 1 TAB PO DAILY 07/29/24 Ferrous Sulfate (Iron) 325 Mg (65 Mg Iron) Tablet, 1 TAB PO DAILY for 30 Days, #30 TAB 0 Refills 07/29/24 [Vitamin D] No Conflict Check, 125 MG PO DAILY 07/29/24 Fluticasone Propionate (Flonase Nasal [place]) 50 Mcg/Actuation [place], 2 SPRAY NS DAILY, #16 GM 0 Refills 07/29/24 Montelukast Sodium (Singulair) 10 Mg Tablet, 10 MG PO DAILY, TAB 07/29/24 Pregabalin (Lyrica) 150 Mg Capsule, 150 MG PO DAILY, CAP 07/29/24 Simvastatin (Simvastatin) 20 Mg Tablet, 20 MG PO DAILY, TAB 07/29/24 Esomeprazole Magnesium (Esomeprazole Magnesium) 40 Mg Capsule.dr, 40 MG PO DAILY, CAP 07/29/24 Levothyroxine Sodium (Levothyroxine Sodium) 25 Mcg Tablet, 25 MCG PO DAILY, TAB 07/29/24 Raloxifene HCl (Evista) 60 Mg Tablet, 1 TAB PO DAILY for 30 Days, #30 TAB 0 Refills 07/04/24 Famotidine (Famotidine) 40 Mg Tablet, 1 TAB HS 07/04/24 Levetiracetam (Levetiracetam) 250 Mg Tablet, 250 MG PO DAILY, TAB 02/27/24 Levetiracetam (Levetiracetam) 500 Mg Tab.er.24h, 500 MG PO HS, TAB 02/27/24 Metoprolol Succinate (Metoprolol Succinate) 100 Mg Tab.er.24h, 100 MG PO BID, TAB 02/27/24 Discontinued Reported Medications Fluticasone/Vilanterol (Breo Ellipta 200-25 Mcg INH) 200 Mcg-25 Mcg/Dose Blst.w.dev, 1 PUFF IH DAILY for 30 Days, #1 EACH 0 Refills 07/04/24 Fluticasone Propionate (Flonase Nasal [place]) 50 Mcg/Actuation [place], 1 SPRAY .AD DAILY 07/04/24 Pregabalin (Pregabalin) 150 Mg Capsule, 1 TAB .AD HS 07/04/24 Oxybutynin Chloride (Oxybutynin Chloride ER) 10 Mg Tab.er.24, 1 TAB HS 07/04/24 Torsemide (Torsemide) 10 Mg Tablet, 1 TAB DAILY 07/04/24 Doxazosin Mesylate (Doxazosin Mesylate) 4 Mg Tablet, 1 TAB PO BID 07/04/24 Simvastatin (Simvastatin) 20 Mg Tablet, 1 TAB .AD HS 07/04/24 Levothyroxine Sodium (Levothyroxine Sodium) 25 Mcg Tablet, 1 TAB .AD DAILY 07/04/24 Esomeprazole Magnesium (Esomeprazole Magnesium) 20 Mg Capsule.dr, 1 CAP PO DAILY for acid reflux for 30 Days, #30 CAP 0 Refills 02/28/24 Telmisartan (Telmisartan) 80 Mg Tablet, 80 MG PO PM, TAB 02/28/24 Discontinued Scripts Cefdinir (Cefdinir) 300 Mg Capsule, 1 CAP PO BID for 5 Days, #10 CAP 0 Refills Prov:WILLIAM KAPLAN NP 07/08/24 Azithromycin (Zithromax) 250 Mg Tablet, 500 MG PO Q24H for 3 Days, #3 TAB Prov:WILLIAM KAPLAN NP 07/08/24 Albuterol Sulfate (Albuterol Sulfate) 2.5 Mg/3 Ml (0.083 %) Vial.neb, 2.5 MG IH [id number] for 10 Days, #120 INH 2 Refills Prov:DILIP OROPEZA MD 03/02/24 Time spent arranging discharge: 1-30 minutes FADI F[facility] Aug 02, 2024 14:15
--- NOTE | 2024-08-02 15:41 | NUR ---
discharge patient discharged, printed discharge instructions, educated patient regarding follow up visits, medications, activity, diet, signs and symptoms to report/return to ER. answered pt and family questions, patient and family understood.
[2024-08-15] MEDS ORDERED: HYDR-4060 PO (19:57)
[2024-08-16] MEDS ORDERED: METO50TA18 PO (00:12)
[2024-08-16] MEDS ORDERED: PREG150C PO (00:20)
[2024-08-16] MEDS ORDERED: OXYB10TA30 PO (01:10)
[2024-08-18] MEDS ORDERED: PANT40TA PO (12:37)
[2024-08-18] MEDS ORDERED: LEVE-43 PO (12:37)
[2024-08-18] MEDS ORDERED: SIMV-43 PO (12:37)
[2024-08-18] MEDS ORDERED: DOXY100C5 PO (12:37)
[2024-08-18] MEDS ORDERED: LEVO25TA9 PO (12:37)
== END 2024-08-02 15:55 | disposition home or self-care (01) ==
LOC: DAH 09:43 → 4BH 09:44 → DAH 09:44 → INTOOBSV 09:44
PROVIDERS: ADMIT Surgery; ATTEND Surgery
DX: K44.0 Diaphragmatic hernia with obstruction, without gangrene (principal); I13.0 Hypertensive heart and chronic kidney disease with heart failure and stage 1 through stage 4 chronic kidney disease, or unspecified chronic kidney disease; N18.30 Chronic kidney disease, stage 3 unspecified; I50.9 Heart failure, unspecified; J45.909 Unspecified asthma, uncomplicated; E03.9 Hypothyroidism, unspecified; G40.909 Epilepsy, unspecified, not intractable, without status epilepticus; M19.90 Unspecified osteoarthritis, unspecified site; K21.9 Gastro-esophageal reflux disease without esophagitis; E78.5 Hyperlipidemia, unspecified; Z90.710 Acquired absence of both cervix and uterus; Z90.49 Acquired absence of other specified parts of digestive tract; Z79.899 Other long term (current) drug therapy
CPT/HCPCS: 80048; 85025; 85610; 85730; 86850; 86900; 86901; 36415; 93005; 96374; 96372 ×2; 96375 ×2; 43282; 82948; 94640; 96376 ×2; 97161; 97116; 97530 ×2; G0378 ×24; A4223 ×2; A4600; A4663; J7030 ×2; A4215 ×2; P9045; J3490 ×5; J3010 ×2; J1171 ×3; J1100; J0330; J2003; J1650 ×2; J2250; J2704; J2405; J2710; J0665 ×2; J1885 ×3; J0690 ×2; C1781; A4930; A4213; A4222; A4221; A4216; 43235